=== PATIENT | male | born 1985 | race Caucasian/White ===

== ENCOUNTER 2019-07-15 22:58 | Emergency (ER) | payer BC ==
[2019-07-15 23:04] VITALS: TEMP 98.3
[2019-07-16] MEDS ORDERED: SODIUM CHLORIDE 0.9% 500 ML 500 ML IV ONE (01:48)
[2019-07-16] MEDS ORDERED: ONDANSETRON 4 MG/2 ML VIAL IVP STA (01:48)
[2019-07-16] MEDS ORDERED: SODIUM CHLORIDE 0.9% 1,000 ML IV ONE (01:48)
--- NOTE | 2019-07-16 01:48 | ED ---
Nausea/Vomiting/Diarrhea HPI - General Chief complaint: Nausea/Vomiting/Diarrhea Stated complaint: Vomiting Time Seen by Provider: 07/16/19 01:48 Source: patient Mode of arrival: ambulatory Limitations: no limitations - History of Present Illness Initial comments: 33-year-old male presented for vomiting 2 days per patient states he has no other associated symptoms denies fevers abdominal pain diarrhea denies hematemesis chest pain shortness of breath. Patient denies melena hematochezia dysuria urgency frequency flank pain. Patient states he feels fine aside from the vomiting. Patient states he has missed work. Remaining views negative. - Related Data Previous Rx's Medication Instructions Recorded Ondansetron Odt [Zofran Odt] 4 mg PO Q8HR PRN 4 Days #12 tab 07/16/19 Allergies Allergy/AdvReac Type Severity Reaction Status Date / Time No Known Allergies Allergy Verified 07/15/19 23:04 Review of Systems ROS Statement: Those systems with pertinent positive or pertinent negative responses have been documented in the HPI. ROS Other: All systems not noted in ROS Statement are negative. Past Medical History Past Medical History: No Reported History History of Any Multi-Drug Resistant Organisms: None Reported Past Surgical History: No Surgical Hx Reported Past Psychological History: No Psychological Hx Reported Smoking Status: Current every day smoker Past Alcohol Use History: Occasional Past Drug Use History: None Reported General Exam - General Exam Comments Initial Comments: General: The patient is awake and alert, in no distress, and does not appear acutely ill. Eye: Pupils are equal, round and reactive to light, extra-ocular movements are intact. No nystagmus. There is normal conjunctiva bilaterally. No signs of icterus. Ears, nose, mouth and throat: There are moist mucous membranes and no oral lesions. Neck: The neck is supple, there is no tenderness or JVD. Cardiovascular: There is a regular rate and rhythm. No murmur, rub or gallop is appreciated. Respiratory: Lungs are clear to auscultation, respirations are non-labored, breath sounds are equal. No wheezes, stridor, rales, or rhonchi. Gastrointestinal: Soft, non-distended, non-tender abdomen without masses or organomegaly noted. There is no rebound or guarding present. No CVA tenderness. Bowel sounds are unremarkable. Musculoskeletal: Normal ROM, no tenderness. Strength 5/5. Sensation intact. Pulses equal bilaterally 2+. Neurological: A&O x 3. CN II-XII intact grossly, There are no obvious motor or sensory deficits. Coordination appears grossly intact. Speech is normal. Skin: Skin is warm and dry and no rashes or lesions are noted. Psychiatric: Cooperative, appropriate mood & affect, normal judgment. Limitations: no limitations Course Vital Signs 07/15/19 07/16/19 23:01 03:54 Temperature 98.3 F Pulse Rate 101 H 88 Respiratory 20 18 Rate Blood Pressure 171/104 159/102 O2 Sat by Pulse 95 98 Oximetry Medical Decision Making - Medical Decision Making Well-appearing 33-year-old male presenting for vomiting. Patient appears clinically hydrated on physical examination. Patient given IV fluid bolus. Laboratory studies stable. There is elevation of AST ALT. Patient does admit to alcohol use. Patient has no upper quadrant abdominal pain. No elevation of alk phos. Negative Rich sign. At this time patient states his symptoms are controlled Zofran he is requesting discharge. Discussed case with a provider at this time if the patient is stable for discharge with outpatient primary care follow-up. - Lab Data Result diagrams: 07/16/19 02:37 07/16/19 02:30 Lab Results 07/16/19 07/16/19 Range/Units 02:30 02:37 WBC 9.2 (3.8-10.6) k/uL RBC 4.97 (4.30-5.90) m/uL Hgb 16.4 (13.0-17.5) gm/dL Hct 49.3 (39.0-53.0) % MCV 99.1 (80.0-100.0) fL MCH 33.1 (25.0-35.0) pg MCHC 33.4 (31.0-37.0) g/dL RDW 12.8 (11.5-15.5) % Plt Count 190 (150-450) k/uL Neutrophils % 72 % Lymphocytes % 18 % Monocytes % 4 % Eosinophils % 2 % Basophils % 2 % Neutrophils # 6.6 (1.3-7.7) k/uL Lymphocytes # 1.7 (1.0-4.8) k/uL Monocytes # 0.4 (0-1.0) k/uL Eosinophils # 0.2 (0-0.7) k/uL Basophils # 0.1 (0-0.2) k/uL Sodium 137 (137-145) mmol/L Potassium 4.0 (3.5-5.1) mmol/L Chloride 96 L (98-107) mmol/L Carbon Dioxide 28 (22-30) mmol/L Anion Gap 13 mmol/L BUN 6 L (9-20) mg/dL Creatinine 0.83 (0.66-1.25) mg/dL Est GFR (CKD-EPI)AfAm >90 (>60 ml/min/1.73 sqM) Est GFR (CKD-EPI)NonAf >90 (>60 ml/min/1.73 sqM) Glucose 134 H (74-99) mg/dL Calcium 10.0 (8.4-10.2) mg/dL Total Bilirubin 0.9 (0.2-1.3) mg/dL AST 202 H (17-59) U/L ALT 223 H (21-72) U/L Alkaline Phosphatase 93 (38-126) U/L Total Protein 7.5 (6.3-8.2) g/dL Albumin 4.6 (3.5-5.0) g/dL Amylase 50 (30-110) U/L Lipase 264 (23-300) U/L Disposition Clinical Impression: Vomiting, Elevated liver enzymes Disposition: HOME SELF-CARE Condition: Good Instructions (If sedation given, give patient instructions): Acute Nausea and Vomiting (ED) Additional Instructions: Please use medication as discussed. Please follow-up with family doctor in the next 2 days for elevation of liver enzymes. Please return to emergency room if the symptoms increase or worsen or for any other concerns. Prescriptions: Ondansetron Odt [Zofran Odt] 4 mg PO Q8HR PRN 4 Days #12 tab PRN Reason: Nausea Is patient prescribed a controlled substance at d/c from ED?: No Referrals: None,Stated [Primary Care Provider] - 1-2 days Time of Disposition: 03:24
[2019-07-16 02:44] LABS: Basophils # (A) 0.1 k/uL (0-0.2); Basophils % (A) 2 %; Eosinophils # (A) 0.2 k/uL (0-0.7); Eosinophils % (A) 2 %; HCT 49.3 % (39.0-53.0); HGB 16.4 gm/dL (13.0-17.5); Lymphocytes # (A) 1.7 k/uL (1.0-4.8); Lymphocytes % (A) 18 %; MCH 33.1 pg (25.0-35.0); MCHC 33.4 g/dL (31.0-37.0); MCV 99.1 fL (80.0-100.0); Mean Platelet Volume 6.7; Monocytes # (A) 0.4 k/uL (0-1.0); Monocytes % (A) 4 %; Neutrophils # (A) 6.6 k/uL (1.3-7.7); Neutrophils % (A) 72 %; Platelet Count 190 k/uL (150-450); RBC 4.97 m/uL (4.30-5.90); RDW 12.8 % (11.5-15.5); WBC 9.2 k/uL (3.8-10.6)
[2019-07-16 03:00] LABS: ALT 223 U/L (21-72); AST 202 U/L (17-59); African American GFR (CKD) >90 (>60 ml/min/1.73 sqM); Albumin 4.6 g/dL (3.5-5.0); Alkaline Phosphatase 93 U/L (38-126); Amylase 50 U/L (30-110); Anion Gap 13 mmol/L; Blood Urea Nitrogen 6 mg/dL (9-20); Carbon Dioxide 28 mmol/L (22-30); Chloride 96 mmol/L (98-107); Glucose 134 mg/dL (74-99); Sodium 137 mmol/L (137-145); Total Bilirubin 0.9 mg/dL (0.2-1.3); Total Protein 7.5 g/dL (6.3-8.2)
[2019-07-16 03:56] VITALS: BP 159/102; PULSE 88; RESP 18
== END 2019-07-16 03:58 | disposition home or self-care (01) ==
LOC: EC 22:58
DX: R74.8 Abnormal levels of other serum enzymes (principal); R11.10 Vomiting, unspecified; Z72.89 Other problems related to lifestyle; F17.200 Nicotine dependence, unspecified, uncomplicated
CPT/HCPCS: 99284; 96374; 96361; 36415; 80053; 82150; 83690; 85025; J2405

== ENCOUNTER 2019-12-27 17:11 | Emergency (ER) | payer BC ==
--- NOTE | 2019-12-27 17:39 | ED ---
Abdominal Pain HPI - General Chief Complaint: Abdominal Pain Stated Complaint: Vomiting blood Time Seen by Provider: 12/27/19 17:28 Source: patient, RN notes reviewed, old records reviewed Mode of arrival: ambulatory Limitations: no limitations - History of Present Illness Initial Comments: This is a 4-year-old male DF for evaluation of abdominal pain with nausea vomiting vomiting blood. Patient is to be daily drinker he is drinking today having a little anxiety over the blood in his vomit no blood in the stool occasional abdominal pain currently abdominal pain-free no history of surgery denies any medical history otherwise cystic [place] for some depression and anxiety. Currently nauseous with no active vomiting. No recent fevers or travel history. MD Complaint: abdominal pain -: week(s) Location: diffuse, epigastric Radiation: epigastric Migration to: no migration Severity: moderate Severity scale (1-10): 4 Quality: aching Consistency: intermittent Improves With: nothing Worsens With: nothing Associated Symptoms: nausea - Related Data Previous Rx's Medication Instructions Recorded Ondansetron Odt [Zofran Odt] 4 mg PO Q8HR PRN 4 Days #12 tab 07/16/19 Allergies Allergy/AdvReac Type Severity Reaction Status Date / Time No Known Allergies Allergy Verified 12/27/19 17:22 Review of Systems ROS Statement: Those systems with pertinent positive or pertinent negative responses have been documented in the HPI. ROS Other: All systems not noted in ROS Statement are negative. Past Medical History Past Medical History: No Reported History History of Any Multi-Drug Resistant Organisms: None Reported Past Surgical History: No Surgical Hx Reported Past Psychological History: Depression Smoking Status: Current every day smoker Past Alcohol Use History: Occasional Past Drug Use History: None Reported General Exam Limitations: no limitations General appearance: alert, in no apparent distress Head exam: Present: atraumatic, normocephalic, normal inspection Eye exam: Present: normal appearance, PERRL, EOMI. Absent: scleral icterus, conjunctival injection, periorbital swelling ENT exam: Present: normal exam, mucous membranes moist Neck exam: Present: normal inspection. Absent: tenderness, meningismus, lymphadenopathy Respiratory exam: Present: normal lung sounds bilaterally. Absent: respiratory distress, wheezes, rales, rhonchi, stridor Cardiovascular Exam: Present: normal rhythm, tachycardia, normal heart sounds. Absent: systolic murmur, diastolic murmur, rubs, gallop, clicks GI/Abdominal exam: Present: soft, normal bowel sounds. Absent: distended, tenderness, guarding, rebound, rigid Extremities exam: Present: normal inspection, full ROM, normal capillary refill. Absent: tenderness, pedal edema, joint swelling, calf tenderness Back exam: Present: normal inspection Neurological exam: Present: alert, oriented X3, CN II-XII intact Psychiatric exam: Present: normal affect, normal mood Skin exam: Present: warm, dry, intact, normal color. Absent: rash Course Vital Signs 12/27/19 12/27/19 17:21 18:41 Temperature 98.5 F Pulse Rate 118 H 115 H Respiratory 20 18 Rate Blood Pressure 148/83 129/82 O2 Sat by Pulse 96 94 L Oximetry - Reevaluation(s) Reevaluation #1: 12/27/19 18:36 Medical records reviewed Reevaluation #2: 12/27/19 20:06 Patient has improved pain Reevaluation #3: 12/27/19 20:06 Patient given results and findings, okay for discharge Medical Decision Making - Medical Decision Making 34 male to the ER for evaluation patient is evaluation of abdominal pain with nausea vomiting fevers but is on. Daily alcohol. No other significant acute findings mild pancreatitis can be discharged home to increase fluid intake and alcohol withdrawal - Lab Data Result diagrams: 12/27/19 18:23 12/27/19 18:23 Lab Results 12/27/19 12/27/19 Range/Units 18:23 18:23 WBC 8.3 (3.8-10.6) k/uL RBC 5.20 (4.30-5.90) m/uL Hgb 17.6 H (13.0-17.5) gm/dL Hct 51.5 (39.0-53.0) % MCV 99.1 (80.0-100.0) fL MCH 33.8 (25.0-35.0) pg MCHC 34.2 (31.0-37.0) g/dL RDW 12.1 (11.5-15.5) % Plt Count 222 (150-450) k/uL Neutrophils % 62 % Lymphocytes % 27 % Monocytes % 5 % Eosinophils % 3 % Basophils % 1 % Neutrophils # 5.2 (1.3-7.7) k/uL Lymphocytes # 2.3 (1.0-4.8) k/uL Monocytes # 0.4 (0-1.0) k/uL Eosinophils # 0.3 (0-0.7) k/uL Basophils # 0.1 (0-0.2) k/uL Sodium 138 (137-145) mmol/L Potassium 4.2 (3.5-5.1) mmol/L Chloride 98 (98-107) mmol/L Carbon Dioxide 23 (22-30) mmol/L Anion Gap 17 mmol/L BUN 11 (9-20) mg/dL Creatinine 0.74 (0.66-1.25) mg/dL Est GFR (CKD-EPI)AfAm >90 (>60 ml/min/1.73 sqM) Est GFR (CKD-EPI)NonAf >90 (>60 ml/min/1.73 sqM) Glucose 196 H (74-99) mg/dL Calcium 10.1 (8.4-10.2) mg/dL Phosphorus 5.1 H (2.5-4.5) mg/dL Magnesium 2.1 (1.6-2.3) mg/dL Total Bilirubin 0.5 (0.2-1.3) mg/dL AST 104 H (17-59) U/L ALT 107 H (4-49) U/L Alkaline Phosphatase 83 (38-126) U/L Total Protein 8.0 (6.3-8.2) g/dL Albumin 4.9 (3.5-5.0) g/dL Amylase 63 (30-110) U/L Lipase 305 H (23-300) U/L Serum Alcohol 180 mg/dL - Radiology Data Radiology results: report reviewed (X-ray KUB is negative for significant acute disease), image reviewed Disposition Clinical Impression: Abdominal pain, Pancreatitis, Alcohol abuse, Nausea & vomiting Disposition: HOME SELF-CARE Condition: Good Instructions (If sedation given, give patient instructions): Abdominal Pain (ED) Is patient prescribed a controlled substance at d/c from ED?: No Referrals: None,Stated [Primary Care Provider] - 1-2 days
[2019-12-27] MEDS ORDERED: PANTOPRAZOLE 40 MG/10 ML VIAL IVP STA (18:05)
[2019-12-27] MEDS ORDERED: SODIUM CHLORIDE 0.9% 1,000 ML IV STA ×2 (18:05)
[2019-12-27] MEDS ORDERED: ONDANSETRON 4 MG/2 ML VIAL IVP STA (18:05)
--- NOTE | 2019-12-27 18:25 | XR ---
EXAMINATION TYPE: XR KUB DATE OF EXAM: 12/27/2019 Comparison: None Clinical History: 34-year-old male abdominal pain Findings: Subtle phleboliths within the right side of the pelvis. No dilated small bowel or differential air-fluid levels. No significant stool burden. No evidence for free intraperitoneal air. Lung bases are clear. Small amount of scattered colonic air. Impression: Nonspecific, nonobstructive bowel gas pattern. No free air.
[2019-12-27 18:40] LABS: Basophils # (A) 0.1 k/uL (0-0.2); Basophils % (A) 1 %; Eosinophils # (A) 0.3 k/uL (0-0.7); Eosinophils % (A) 3 %; HCT 51.5 % (39.0-53.0); HGB 17.6 gm/dL (13.0-17.5); Lymphocytes # (A) 2.3 k/uL (1.0-4.8); Lymphocytes % (A) 27 %; MCH 33.8 pg (25.0-35.0); MCHC 34.2 g/dL (31.0-37.0); MCV 99.1 fL (80.0-100.0); Mean Platelet Volume 7.4; Monocytes # (A) 0.4 k/uL (0-1.0); Monocytes % (A) 5 %; Neutrophils # (A) 5.2 k/uL (1.3-7.7); Neutrophils % (A) 62 %; Platelet Count 222 k/uL (150-450); RDW 12.1 % (11.5-15.5); WBC 8.3 k/uL (3.8-10.6)
[2019-12-27 18:51] LABS: ALT 107 U/L (4-49); AST 104 U/L (17-59); African American GFR (CKD) >90 (>60 ml/min/1.73 sqM); Albumin 4.9 g/dL (3.5-5.0); Alkaline Phosphatase 83 U/L (38-126); Amylase 63 U/L (30-110); Anion Gap 17 mmol/L; Blood Urea Nitrogen 11 mg/dL (9-20); Calcium 10.1 mg/dL (8.4-10.2); Carbon Dioxide 23 mmol/L (22-30); Chloride 98 mmol/L (98-107); Glucose 196 mg/dL (74-99); Magnesium 2.1 mg/dL (1.6-2.3); Non-African American GFR(CKD) >90 (>60 ml/min/1.73 sqM); Phosphorus 5.1 mg/dL (2.5-4.5); Potassium 4.2 mmol/L (3.5-5.1); Sodium 138 mmol/L (137-145); Total Bilirubin 0.5 mg/dL (0.2-1.3)
[2019-12-27 19:05] LABS: Alcohol 180 mg/dL
[2019-12-27 20:22] VITALS: BP 139/79; PULSE 95; RESP 19; TEMP 98.6
== END 2019-12-27 20:29 | disposition home or self-care (01) ==
LOC: EC 17:11
DX: K85.90 Acute pancreatitis without necrosis or infection, unspecified (principal); F10.10 Alcohol abuse, uncomplicated; F41.9 Anxiety disorder, unspecified; F17.200 Nicotine dependence, unspecified, uncomplicated
CPT/HCPCS: 36415; 80053; 82150; 83690; 83735; 84100; 85025; 80320; 74018; 99284; 96374; 96375; 96361 ×2; J2405; C9113

== ENCOUNTER 2021-02-06 16:02 | Inpatient (IN) | payer BC ==
[2021-02-06] MEDS ORDERED: SODIUM CHLORIDE 0.9% 1,000 ML IV STA (16:58)
[2021-02-06] MEDS ORDERED: FAMOTIDINE 20 MG/2 ML VIAL IV STA (16:58)
[2021-02-06] MEDS ORDERED: SODIUM CHLORIDE 0.9% 1,000 ML with MVI, ADULT NO.4 WITH VIT K 10 ML, THIAMINE 100 MG, F... IV ONE ×4 (16:58)
[2021-02-06] MEDS ORDERED: THIAMINE 100 MG/ML 2 ML VIAL IM STA (16:58)
[2021-02-06 17:22] LABS: Glucose,Whole Blood 286 mg/dL (75-99)
--- NOTE | 2021-02-06 17:55 | ED ---
General Adult HPI - General Chief complaint: Extremity Problem,Nontraumatic Stated complaint: loss of feeling in both feet Time Seen by Provider: 02/06/21 16:28 Source: patient Mode of arrival: ambulatory Limitations: no limitations - History of Present Illness Initial comments: 35-year-old male patient presents to the emergency department today reporting bilateral foot numbness and tingling has been going on for the last few weeks. Also reports increased depression and hopelessness. Denies suicidal ideation. States he does drink alcohol daily, at least 1.5 pints per day. States he isn't doing this for several years. States he has decreased appetite, eats roughly one meal every couple of days. States he is nauseated vomits frequently. State s he has had some bloody emesis yesterday. Denies any black or bloody stools. Denies any fever or chills. Denies any low back pain or back injury. States it feels like his feet are sleeping. Denies loss of bowel or bladder control. Denies saddle anesthesia. Denies any known medical conditions. States he does have a family history of diabetes. Patient denies any recent rash, fever, chills, cough, shortness of breath, chest pain, diarrhea, constipation, back pain, numbness, tingling, dizziness, weakness, hematuria, dysuria, urinary urgency, urinary frequency, headache, visual changes, or any other complaints. - Related Data Home Medications Medication Instructions Recorded Confirmed No Known Home Medications 02/06/21 02/06/21 Allergies Allergy/AdvReac Type Severity Reaction Status Date / Time No Known Allergies Allergy Verified 02/06/21 18:15 Review of Systems ROS Statement: Those systems with pertinent positive or pertinent negative responses have been documented in the HPI. ROS Other: All systems not noted in ROS Statement are negative. Past Medical History Past Medical History: No Reported History History of Any Multi-Drug Resistant Organisms: None Reported Past Surgical History: No Surgical Hx Reported Past Psychological History: Depression Smoking Status: Current every day smoker Past Alcohol Use History: Daily Past Drug Use History: None Reported General Exam Limitations: no limitations General appearance: alert, in no apparent distress, other (Physical well-developed, well-nourished adult male patient in no acute distress. Vital signs upon presentation are temperature 98.1F, pulse 122, respirations 20, blood pressure 159/89, pulse ox 97% on room air.) Eye exam: Present: normal appearance, PERRL, EOMI. Absent: scleral icterus, conjunctival injection, periorbital swelling ENT exam: Present: normal exam, normal oropharynx, mucous membranes moist Respiratory exam: Present: normal lung sounds bilaterally. Absent: respiratory distress, wheezes, rales, rhonchi, stridor Cardiovascular Exam: Present: regular rate, normal rhythm, normal heart sounds. Absent: systolic murmur, diastolic murmur, rubs, gallop, clicks GI/Abdominal exam: Present: soft, normal bowel sounds. Absent: distended, tenderness, guarding, rebound, rigid Neurological exam: Present: alert, oriented X3, CN II-XII intact Psychiatric exam: Present: normal affect, normal mood Skin exam: Present: warm, dry, intact, normal color. Absent: rash Course Vital Signs 02/06/21 02/06/21 02/06/21 16:04 18:33 21:10 Temperature 98.1 F 98.0 F 98.6 F Pulse Rate 122 H 95 Pulse Rate [ 95 Pulse Oximetery ] Respiratory 20 18 18 Rate Blood Pressure 159/89 130/90 Blood Pressure 149/85 [Left Arm] O2 Sat by Pulse 97 99 94 L Oximetry Medical Decision Making - Medical Decision Making 35-year-old male patient presents to the emergency department today for eval uation of. Seizure to the bilateral feet, decreased appetite, depression. Physical examination was unremarkable. Abdomen soft and nontender. He is afebrile normal vital signs. Labs reviewed and did reveal elevated blood sugar. Patient did admit to being chronic alcoholic, paresthesia could be related to vitamin deficiency. He'll be given a banana bag, thiamine, and vitamin B12. We did give dose of insulin. He'll be started on NovoLog. He'll be admitted to the hospital for management of new onset diabetes and further evaluation by psychiatry. Case discussed with my attending Dr. Isbell. - Lab Data Result diagrams: 02/06/21 17:12 02/06/21 17:12 Lab Results 02/06/21 02/06/21 02/06/21 Range/Units 17:12 17:12 17:12 WBC 8.7 (3.8-10.6) k/uL RBC 5.40 (4.30-5.90) m/uL Hgb 18.7 H (13.0-17.5) gm/dL Hct 52.6 (39.0-53.0) % MCV 97.4 (80.0-100.0) fL MCH 34.7 (25.0-35.0) pg MCHC 35.6 (31.0-37.0) g/dL RDW 11.9 (11.5-15.5) % Plt Count 193 (150-450) k/uL MPV 7.9 Neutrophils % 58 % Lymphocytes % 32 % Monocytes % 5 % Eosinophils % 2 % Basophils % 1 % Neutrophils # 5.1 (1.3-7.7) k/uL Lymphocytes # 2.8 (1.0-4.8) k/uL Monocytes # 0.5 (0-1.0) k/uL Eosinophils # 0.2 (0-0.7) k/uL Basophils # 0.1 (0-0.2) k/uL Sodium 140 (137-145) mmol/L Potassium 4.7 (3.5-5.1) mmol/L Chloride 97 L (98-107) mmol/L Carbon Dioxide 22 (22-30) mmol/L Anion Gap 21 mmol/L BUN 4 L (9-20) mg/dL Creatinine 0.73 (0.66-1.25) mg/dL Est GFR (CKD-EPI)AfAm >90 (>60 ml/min/1.73 sqM) Est GFR (CKD-EPI)NonAf >90 (>60 ml/min/1.73 sqM) Glucose 301 H (74-99) mg/dL POC Glucose (mg/dL) (75-99) mg/dL POC Glu [employer] Inspector ID Calcium 10.1 (8.4-10.2) mg/dL Phosphorus 5.0 H (2.5-4.5) mg/dL Magnesium 1.9 (1.6-2.3) mg/dL Total Bilirubin 0.9 (0.2-1.3) mg/dL AST 229 H (17-59) U/L ALT 174 H (4-49) U/L Alkaline Phosphatase 90 (38-126) U/L Total Protein 8.2 (6.3-8.2) g/dL Albumin 5.2 H (3.5-5.0) g/dL Lipase 266 (23-300) U/L Urine Color Yellow Urine Appearance Clear (Clear) Urine pH 5.5 (5.0-8.0) Ur Specific [place] 1.020 (1.001-1.035) Urine Protein Trace H (Negative) Urine Glucose (UA) 4+ H (Negative) Urine Ketones 1+ H (Negative) Urine Blood Negative (Negative) Urine Nitrite Negative (Negative) Urine Bilirubin Negative (Negative) Urine Urobilinogen <2.0 (<2.0) mg/dL Ur Leukocyte Esterase Negative (Negative) Urine Opiates Screen Not Detected (NotDetected) Ur Oxycodone Screen Not Detected (NotDetected) Urine Methadone Screen Not Detected (NotDetected) Ur Propoxyphene Screen Not Detected (NotDetected) Ur Barbiturates Screen Not Detected (NotDetected) U Tricyclic Antidepress Not Detected (NotDetected) Ur Phencyclidine Scrn Not Detected (NotDetected) Ur Amphetamines Screen Not Detected (NotDetected) U Methamphetamines Scrn Not Detected (NotDetected) U Benzodiazepines Scrn Not Detected (NotDetected) Urine Cocaine Screen Not Detected (NotDetected) U Marijuana (THC) Screen Not Detected (NotDetected) Serum Alcohol 236 H* mg/dL Acetone, Qual (Negative) Coronavirus (PCR) (Not Detectd) 02/06/21 02/06/21 02/06/21 Range/Units 17:12 17:17 19:54 WBC (3.8-10.6) k/uL RBC (4.30-5.90) m/uL Hgb (13.0-17.5) gm/dL Hct (39.0-53.0) % MCV (80.0-100.0) fL MCH (25.0-35.0) pg MCHC (31.0-37.0) g/dL RDW (11.5-15.5) % Plt Count (150-450) k/uL MPV Neutrophils % % Lymphocytes % % Monocytes % % Eosinophils % % Basophils % % Neutrophils # (1.3-7.7) k/uL Lymphocytes # (1.0-4.8) k/uL Monocytes # (0-1.0) k/uL Eosinophils # (0-0.7) k/uL Basophils # (0-0.2) k/uL Sodium (137-145) mmol/L Potassium (3.5-5.1) mmol/L Chloride (98-107) mmol/L Carbon Dioxide (22-30) mmol/L Anion Gap mmol/L BUN (9-20) mg/dL Creatinine (0.66-1.25) mg/dL Est GFR (CKD-EPI)AfAm (>60 ml/min/1.73 sqM) Est GFR (CKD-EPI)NonAf (>60 ml/min/1.73 sqM) Glucose (74-99) mg/dL POC Glucose (mg/dL) 286 H (75-99) mg/dL POC Glu [employer] Inspector ID Dayana Garcia Calcium (8.4-10.2) mg/dL Phosphorus (2.5-4.5) mg/dL Magnesium (1.6-2.3) mg/dL Total Bilirubin (0.2-1.3) mg/dL AST (17-59) U/L ALT (4-49) U/L Alkaline Phosphatase (38-126) U/L Total Protein (6.3-8.2) g/dL Albumin (3.5-5.0) g/dL Lipase (23-300) U/L Urine Color Urine Appearance (Clear) Urine pH (5.0-8.0) Ur Specific [place] (1.001-1.035) Urine Protein (Negative) Urine Glucose (UA) (Negative) Urine Ketones (Negative) Urine Blood (Negative) Urine Nitrite (Negative) Urine Bilirubin (Negative) Urine Urobilinogen (<2.0) mg/dL Ur Leukocyte Esterase (Negative) Urine Opiates Screen (NotDetected) Ur Oxycodone Screen (NotDetected) Urine Methadone Screen (NotDetected) Ur Propoxyphene Screen (NotDetected) Ur Barbiturates Screen (NotDetected) U Tricyclic Antidepress (NotDetected) Ur Phencyclidine Scrn (NotDetected) Ur Amphetamines Screen (NotDetected) U Methamphetamines Scrn (NotDetected) U Benzodiazepines Scrn (NotDetected) Urine Cocaine Screen (NotDetected) U Marijuana (THC) Screen (NotDetected) Serum Alcohol mg/dL Acetone, Qual Negative (Negative) Coronavirus (PCR) Not Detected (Not Detectd) Disposition Clinical Impression: Paresthesia, Alcohol intoxication, New onset type 2 diabetes mellitus, Depression Disposition: ADMITTED IP TO THIS [facility] Condition: Serious Decision to Admit Reason: Admit from EC Decision Date: 02/06/21 Decision Time: 19:08
[2021-02-06 18:04] LABS: Appearance,Urine Clear (Clear); Bilirubin,Urine Negative (Negative); Blood,Urine Negative (Negative); Color,Urine Yellow; Glucose,Urine (UA) 4+ (Negative); Ketones,Urine 1+ (Negative); Leukocyte Esterase,Urine Negative (Negative); Nitrite,Urine Negative (Negative); PH, Urine 5.5 (5.0-8.0); Protein,Urine Trace (Negative); Urobilinogen,Urine <2.0 mg/dL (<2.0)
[2021-02-06 18:07] LABS: Basophils # (A) 0.1 k/uL (0-0.2); Basophils % (A) 1 %; Eosinophils # (A) 0.2 k/uL (0-0.7); Eosinophils % (A) 2 %; HCT 52.6 % (39.0-53.0); HGB 18.7 gm/dL (13.0-17.5); Lymphocytes # (A) 2.8 k/uL (1.0-4.8); Lymphocytes % (A) 32 %; MCH 34.7 pg (25.0-35.0); MCHC 35.6 g/dL (31.0-37.0); MCV 97.4 fL (80.0-100.0); Mean Platelet Volume 7.9; Monocytes # (A) 0.5 k/uL (0-1.0); Monocytes % (A) 5 %; Neutrophils # (A) 5.1 k/uL (1.3-7.7); Neutrophils % (A) 58 %; Platelet Count 193 k/uL (150-450); RDW 11.9 % (11.5-15.5); WBC 8.7 k/uL (3.8-10.6)
[2021-02-06 18:12] LABS: ALT 174 U/L (4-49); AST 229 U/L (17-59); African American GFR (CKD) >90 (>60 ml/min/1.73 sqM); Albumin 5.2 g/dL (3.5-5.0); Alkaline Phosphatase 90 U/L (38-126); Anion Gap 21 mmol/L; Blood Urea Nitrogen 4 mg/dL (9-20); Calcium 10.1 mg/dL (8.4-10.2); Carbon Dioxide 22 mmol/L (22-30); Chloride 97 mmol/L (98-107); Glucose 301 mg/dL (74-99); Lipase 266 U/L (23-300); Magnesium 1.9 mg/dL (1.6-2.3); Non-African American GFR(CKD) >90 (>60 ml/min/1.73 sqM); Potassium 4.7 mmol/L (3.5-5.1); Sodium 140 mmol/L (137-145); Total Bilirubin 0.9 mg/dL (0.2-1.3); Total Protein 8.2 g/dL (6.3-8.2)
[2021-02-06 18:13] LABS: Amphetamine Screen,Urine Not Detected (NotDetected); Barbiturate Screen,Urine Not Detected (NotDetected); Benzodiazepines Screen,Urine Not Detected (NotDetected); Cocaine Screen,Urine Not Detected (NotDetected); Methadone Screen, Urine Not Detected (NotDetected); Opiate Screen,Urine Not Detected (NotDetected); Oxycodone Screen, Urine Not Detected (NotDetected); Phencyclidine Screen,Urine Not Detected (NotDetected); Tricyclic Antidepressant,Urine Not Detected (NotDetected); Urn Cannabinoid Scrn Not Detected (NotDetected)
[2021-02-06 18:32] LABS: Alcohol 236 mg/dL
[2021-02-06] MEDS ORDERED: CYANOCOBALAMIN 1,000 MCG/ML 1 ML VIAL IM ONE (18:58)
[2021-02-06] MEDS ORDERED: NALOXONE 0.4 MG/ML 1 ML VIAL IV PRN (18:59)
[2021-02-06] MEDS ORDERED: LORazepam 2 MG/ML INJ IV PRN ×3 (19:06)
[2021-02-06] MEDS: THIAMINE 100 MG TAB PO SCH (19:10)
[2021-02-06 21:30] LABS: Glucose,Whole Blood 270 mg/dL (75-99)
[2021-02-06] MEDS: INSULIN ASPART (NovoLOG) 100 UNIT/ML VIAL SQ SCH (21:37)
--- NOTE | 2021-02-07 01:30 | P.HPIM ---
History of Present Illness H&P Date: 02/06/21 Chief Complaint: Numbness in his toes 35-year-old malesignificant past medical history Patient comes in with a month's history of not feeling well, having numbness in his toes. Patient also complains of overwhelming depression denies any suicidal ideation but admits to feeling hopeless and helpless having poor sleep and poor appetite. He denies any active suicidal ideation at this time but admits that he felt suicidal in the past without having a plan. 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 He does admit to couple episodes of dark bloody emesis denies a ny epigastric pain denies any current coffee-ground vomiting however he claims that his most recent bloody emesis was yesterday In the ED he was found to have elevated blood sugar newly diagnosed diabetes mellitus he admits that his last drink was earlier this morning however he is asking for help to quit drinking and improve his health He denies any drug abuse however he admits to smoking cigarettes. He denies any fevers chills as any abdominal pain denies any bowel or urinary habits changes Review of Systems Pertinent positives as noted in HPI. All other systems were reviewed and are negative Past Medical History Past Medical History: No Reported History Additional Past Medical History / Comment(s): Depressed mood, alcohol abuse History of Any Multi-Drug Resistant Organisms: None Reported Past Surgical History: No Surgical Hx Reported Past Psychological History: Depression Smoking Status: Current every day smoker Past Alcohol Use History: Daily Past Drug Use History: None Reported - Past Family History Family Family Medical History: No Reported History Medications and Allergies Home Medications Medication Instructions Recorded Confirmed Type No Known Home Medications 02/06/21 02/06/21 History Allergies Allergy/AdvReac Type Severity Reaction Status Date / Time No Known Allergies Allergy Verified 02/06/21 18:15 Physical Exam Vitals: Vital Signs Temp Pulse Pulse Resp BP BP Pulse Ox 02/06/21 21:10 98.6 F 95 18 149/85 94 L 02/06/21 18:33 98.0 F 95 18 130/90 99 02/06/21 16:04 98.1 F 122 H 20 159/89 97 Intake and Output 05/15/21 05/15/21 05/15/21 06:59 14:59 22:59 Other: Voiding Method Toilet # Voids 1 Weight 90.718 kg Constitutional: No acute distress, conversant, pleasant Eyes: Anicteric sclerae, moist conjunctiva, Pupils equal round reactive to light ENMT: NC/AT Oropharynx clear, no erythema, or exudates Neck: Supple, FROM, no masses, or JVD No carotid bruits No thyromegaly Lungs: Clear to auscultation Clear to percussion Normal respiratory effort, no accessory muscle use Cardiovascular: Heart regular in rate and rhythm, No murmurs, gallops, or rubs No peripheral edema Abdominal: Soft Nontender, no guarding, rebound or rigidity Abdomen moving with respiration Normoactive bowel sounds No hepatomegaly, No splenomegaly No palpable mass No abdominal wall hernia noted Skin: Normal temperature, tone, texture, turgor No induration No subcutaneous nodules No rash, lesions No ulcers Extremities: No digital cyanosis No clubbing Pedal pulses intact and symmetrical Radial pulses intact and symmetrical No calf tenderness Psychiatric: Alert and oriented to person, place and time Appropriate affect fair judgement Neuro Muscles Strength 5/5 in all 4 extremities Sensation to light touch grossly present throughout Cranial nerves II-XII grossly intact No focal sensory deficits Lymphatics: no palpable cervical or supraclavicular , or inguinal lymph nodes Results CBC & Chem 7: 02/06/21 17:12 02/06/21 17:12 Labs: Abnormal Lab Results - Last 24 Hours (Table) 02/06/21 02/06/21 02/06/21 Range/Units 17:12 17:12 17:12 Hgb 18.7 H (13.0-17.5) gm/dL Chloride 97 L (98-107) mmol/L BUN 4 L (9-20) mg/dL Glucose 301 H (74-99) mg/dL POC Glucose (mg/dL) (75-99) mg/dL Phosphorus 5.0 H (2.5-4.5) mg/dL AST 229 H (17-59) U/L ALT 174 H (4-49) U/L Albumin 5.2 H (3.5-5.0) g/dL Urine Protein Trace H (Negative) Urine Glucose (UA) 4+ H (Negative) Urine Ketones 1+ H (Negative) Serum Alcohol 236 H* mg/dL 02/06/21 02/06/21 Range/Units 17:17 21:26 Hgb (13.0-17.5) gm/dL Chloride (98-107) mmol/L BUN (9-20) mg/dL Glucose (74-99) mg/dL POC Glucose (mg/dL) 286 H 270 H (75-99) mg/dL Phosphorus (2.5-4.5) mg/dL AST (17-59) U/L ALT (4-49) U/L Albumin (3.5-5.0) g/dL Urine Protein (Negative) Urine Glucose (UA) (Negative) Urine Ketones (Negative) Serum Alcohol mg/dL Assessment and Plan Assessment: Newly diagnosed diabetes mellitus Peripheral neuropathy Alcohol abuse Depressed mood no active suicidal ideation at this time Tobacco smoking Acute alcoholic hepatitis Plan Monitor for alcohol withdrawal syndrome Seizure precautions Thiamine IV fluid hydration Benzodiazepines per CIWA scale PPI Consider GI evaluation for possible bloody emesis Psych evaluation for depressed mood and occasional suicidal ideation no active suicidal ideation at this time Nicotine replacement therapy offered Diabetic education Check A1c Follow-up labs renal function and electrolytes and CBC CODE STATUS: Full code DVT prophylaxis: Mechanical Discussed with: Patient, ER, RN Anticipated length of stay more than [address]: [facility] [place] [facility] A total of 70 minutes was spent on the care of this complex patient more than 50% of the time was spent in counseling and care coordination.
[2021-02-07] MEDS: PANTOPRAZOLE 40 MG TABLET PO SCH ×3 (01:45→16:42)
[2021-02-07 07:14] LABS: Glucose,Whole Blood 240 mg/dL (75-99)
[2021-02-07] MEDS: INSULIN ASPART (NovoLOG) 100 UNIT/ML VIAL SQ SCH ×4 (07:30→21:19)
[2021-02-07] MEDS: THIAMINE 100 MG TAB PO SCH ×2 (07:30→16:43)
[2021-02-07 08:10] VITALS: RESP 16
[2021-02-07 09:59] LABS: Basophils # (A) 0.06 X 10*3/uL (0.00-0.10); Basophils % (A) 0.7 %; Eosinophils # (A) 0.22 X 10*3/uL (0.04-0.35); Eosinophils % (A) 2.5 %; HCT 47.5 % (39.6-50.0); HGB 16.2 g/dL (13.0-17.0); Lymphocytes # (A) 2.34 X 10*3/uL (0.90-5.00); Lymphocytes % (A) 26.7 %; MCH 33.4 pg (27.0-32.0); MCHC 34.1 g/dL (32.0-37.0); MCV 97.9 fL (80.0-97.0); Mean Platelet Volume 10.9 fL (9.5-12.2); Monocytes # (A) 0.59 X 10*3/uL (0.20-1.00); Monocytes % (A) 6.7 %; Neutrophils % (A) 62.9 %; Platelet Count 171 X 10*3/uL (140-440); RBC 4.85 X 10*6/uL (4.40-5.60); RDW 11.7 % (11.5-14.5); WBC 8.75 X 10*3/uL (4.50-10.00)
[2021-02-07 10:37] LABS: Albumin/Globulin Ratio 2.11 (1.60-3.17); Anion Gap 10.7 mmol/L (4.00-12.00); Calcium 8.9 mg/dL (8.7-10.3); Carbon Dioxide 27.3 mmol/L (21.6-31.8); Globulin 1.9 g/dL (1.6-3.3); Non-African American GFR(CKD) 117.4 (60.0-200.0); Potassium 4.2 mmol/L (3.5-5.5); Total Bilirubin 0.9 mg/dL (0.2-1.2); Total Protein 5.9 g/dL (6.2-8.2)
--- NOTE | 2021-02-07 11:58 | P.CN ---
Psychiatric Consult - . Consult date: 02/07/21 Consult:: 02/07/21 11:41 Reason for consult: This 35-year-old white male patient was seen on medical floor in his room 624 because he was feeling overwhelmed and depressed. He was a newly diagnosed with the diabetes type 2. History of present illness: This patient stated that he drinks alcohol heavily every day for last many months. He was experiencing numbness in his feet and was vomiting and was feeling depressed. He stated he has panic attack where he feels dizzy, lightheaded, feels like passing out, has shortness of breath, feels anxious, feels like he is going to be doomed and and that has been going for quite a few years now. He stated he feels depressed. He denies any suicidal thoughts. He stated he has struggled with depression for a long time ever since he was a small child. He stated he does not sleep and feels tired most of the time. He stated he keeps waking up every couple of hours. Past history: He was never in a psychiatric hospital . He was seen one time had the age of 15 by a mental health professional for depression. At that time he was prescribed Zoloft but he lost appetite with that medication and stopped taking it. Family history: He stated his mother, brother and a few other people in the [facility] have a history of depression. He denied any history of suicide in the family. He stated his uncle and his grandfather has history of heavy alcoholism. He stated his brother has problems with drugs. Medical history he stated he has been diagnosed with diabetes type 2 very recently. Social history: He stated he grew up with his mother and stepfather. He stated he did not graduate from high school. He stated he works for a [employer] that makes [employer] and has been working there for last 2 years. Medication history: He denied being on any medications. Substance abuse history: He has been drinking heavily every day for last 10 years. He denied use of marijuana or any other drugs. History of suicide or homicide: He denied attempting suicide and denied assaulting anybody else ever in the past. History of psychological trauma : He denied history of emotional, physical or sexual abuse ever in the past. Legal history: He stated he has been arrested a few times in the past. He stated he has been arrested for driving while intoxicated. He stated that before he was 20 years old he was charged with armed robbery and home invasion but that record has been erased from his records. ALLERGIES: He denies being ALLERGIC to anything. Mental status examination: This patient appears to be off his stated age and his mood and affect is depressed. He is alert and oriented to time place and person. He has adequate speech language and communication skills. He speaks in a low monotonous voice. He denied any auditory visual or any other type of hallucinations. He does not have any loose associations of flight of ideas or any disorder of thought process. His judgment is impulsive and impulse control is poor. His memory and other cognitive functions are intact. Diagnostic impression: Generalized anxiety disorder Depressive disorder not otherwise specified Alcohol dependence Diabetes type 2 Treatment recommendations: I will start him on Prozac and the trazodone for sl eep. This patient needs help from the renal social worker to go to community mental health because he has no awareness of any resources in the community to help him out.
[2021-02-07 12:10] LABS: Glucose,Whole Blood 242 mg/dL (75-99)
--- NOTE | 2021-02-07 12:41 | P.CONS ---
History of Present Illness - Reason for Consult Consult date: 02/07/21 Coffee-ground emesis Requesting physician: Villa Rees - Chief Complaint Alcohol intoxication - History of Present Illness 35-year-old male with a medical history significant for alcohol abuse and depression who presents to the hospital due to alcohol intoxication and not feeling well. Currently the patient is being monitored and treated for alcohol withdrawal. He is been seen by the psychiatric service for evaluation of anxiety, depression and alcohol abuse. He reports alcohol abuse for over 10 years with significant daily alcohol consumption. GI was consulted to see the patient regarding intermittent episodes of emesis and dark emesis. He reports that he'll frequently have emesis and intermittently see dark colored vomitus. He denies any gross bleeding. He denies any change in bowel habits generally 2 times daily with no blood or black tarry stool reported. No prior EGD or colonoscopy reported. No abdominal pain reported. Laboratory evaluation significant for WBC 8.7, hemoglobin 16.2, platelet count 171,000, total bilirubin 0.9, alkaline phosphatase 79, AST 125 and ALT 134 with a serum alcohol level of 236 on presentation. The last episode of dark colored emesis was approximately 2 weeks ago per his recollection, and currently he reports tolerating his diet with no nausea or vomiting. Review of Systems REVIEW OF SYSTEMS: CONSTITUTIONAL: Denies any fevers, chills, weight change or fatigue. CARDIOVASCULAR: Denies any chest pain, palpitations high or low blood pressures RESPIRATORY: Denies any shortness of breath, hemoptysis or cough. GENITOURINARY: No dysuria or hematuria. MUSCULOSKELETAL: No weakness reported. SKIN: Denies any new rashes or lesions, jaundice or pallor. PSYCHIATRIC: Anxiety, depression and alcohol abuse, denies any suicidal or homicidal ideations. NEUROLOGY: Denies headache, denies any new focal deficits. EARS/NOSE/THROAT: No recent hearing change, congestion, nasal discharge or sore throat. EYES: No pain in eyes, discharge or change in vision. GASTROINTESTINAL: As per HPI. Past Medical History Past Medical History: No Reported History Additional Past Medical History / Comment(s): Depressed mood, alcohol abuse History of Any Multi-Drug Resistant Organisms: None Reported Past Surgical History: No Surgical Hx Reported Past Psychological History: Depression Smoking Status: Current every day smoker Past Alcohol Use History: Daily Past Drug Use History: None Reported - Past Family History Family Family Medical History: No Reported History Medications and Allergies Home Medications Medication Instructions Recorded Confirmed Type No Known Home Medications 02/06/21 02/06/21 History Allergies Allergy/AdvReac Type Severity Reaction Status Date / Time No Known Allergies Allergy Verified 02/06/21 18:15 Physical Exam Vitals: Vital Signs Temp Pulse Pulse Resp BP BP Pulse Ox 02/07/21 07:05 98.1 F 72 16 149/90 96 02/07/21 01:34 98.6 F 88 20 142/83 97 02/06/21 21:10 98.6 F 95 18 149/85 94 L 02/06/21 18:33 98.0 F 95 18 130/90 99 02/06/21 16:04 98.1 F 122 H 20 159/89 97 Intake and Output 02/06/21 02/07/21 02/07/21 22:59 06:59 14:59 Other: Voiding Method Toilet Toilet Toilet # Voids 1 1 Weight 90.718 kg On physical examination, patient appears comfortable in no apparent distress. HEAD: Normocephalic, atraumatic. EYES: No scleral icterus. No conjunctival injection. MOUTH: No lesions, tongue midline. NECK: Trachea midline, no gross abnormalities. CHEST: Clear to auscultation with no wheezing or rhonchi appreciated. HEART: Regular rate and rhythm. ABDOMEN: Soft, nontender to palpation. Bowel sounds are positive. No organomegaly. No guarding or rigidity. EXTREMITIES: No pedal edema. SKIN: No rashes, no jaundice. NEUROLOGIC: Alert and oriented x3, tremulousness but no asterixis noted. No focal deficits. Results CBC & Chem 7: 02/07/21 04:14 02/07/21 04:14 Labs: Abnormal Lab Results - Last 24 Hours (Table) 02/06/21 02/06/21 02/06/21 Range/Units 17:12 17:12 17:12 Hgb 18.7 H (13.0-17.5) gm/dL MCV (80.0-97.0) fL MCH (27.0-32.0) pg Chloride 97 L (98-107) mmol/L BUN 4 L (9-20) mg/dL BUN/Creatinine Ratio (12.00-20.00) Ratio Glucose 301 H (74-99) mg/dL POC Glucose (mg/dL) (75-99) mg/dL Phosphorus 5.0 H (2.5-4.5) mg/dL AST 229 H (17-59) U/L ALT 174 H (4-49) U/L Total Protein (6.2-8.2) g/dL Albumin 5.2 H (3.5-5.0) g/dL Urine Protein Trace H (Negative) Urine Glucose (UA) 4+ H (Negative) Urine Ketones 1+ H (Negative) Serum Alcohol 236 H* mg/dL 02/06/21 02/06/21 02/07/21 Range/Units 17:17 21:26 04:14 Hgb (13.0-17.5) gm/dL MCV 97.9 H (80.0-97.0) fL MCH 33.4 H (27.0-32.0) pg Chloride (98-107) mmol/L BUN (9-20) mg/dL BUN/Creatinine Ratio (12.00-20.00) Ratio Glucose (74-99) mg/dL POC Glucose (mg/dL) 286 H 270 H (75-99) mg/dL Phosphorus (2.5-4.5) mg/dL AST (17-59) U/L ALT (4-49) U/L Total Protein (6.2-8.2) g/dL Albumin (3.5-5.0) g/dL Urine Protein (Negative) Urine Glucose (UA) (Negative) Urine Ketones (Negative) Serum Alcohol mg/dL 02/07/21 02/07/21 02/07/21 Range/Units 04:14 07:04 12:09 Hgb (13.0-17.5) gm/dL MCV (80.0-97.0) fL MCH (27.0-32.0) pg Chloride (98-107) mmol/L BUN 8.0 L (9-20) mg/dL BUN/Creatinine Ratio 10.00 L (12.00-20.00) Ratio Glucose 236 H (74-99) mg/dL POC Glucose (mg/dL) 240 H 242 H (75-99) mg/dL Phosphorus (2.5-4.5) mg/dL AST 125 H (17-59) U/L ALT 134 H (4-49) U/L Total Protein 5.9 L (6.2-8.2) g/dL Albumin (3.5-5.0) g/dL Urine Protein (Negative) Urine Glucose (UA) (Negative) Urine Ketones (Negative) Serum Alcohol mg/dL Assessment and Plan (1) Nausea and vomiting Narrative/Plan: 35-year-old male with multiple medical comorbidities including alcohol abuse, anxiety and depression presenting for not feeling well and alcohol intoxication. Patient reports intermittent episodes of nausea and vomiting and occasionally seen dark colored emesis. Last episode approximately 2 weeks ago. Hemoglobin stable on presentation at 16.2. No abdominal pain reported. No prior endoscopies reported. No change in bowel habits, melanotic stool or bright red blood per rectum. Current Visit: Yes Status: Acute Code(s): R11.2 - NAUSEA WITH VOMITING, UNSPECIFIED SNOMED Code(s): 29706671 (2) Alcohol intoxication Current Visit: Yes Status: Acute Code(s): F10.929 - ALCOHOL USE, UNSPECIFIED WITH INTOXICATION, UNSPECIFIED SNOMED Code(s): 85520914 Plan: Supportive care Okay for diet as tolerated Continue to monitor hemoglobin and hematocrit and transfuse as needed Continue Protonix therapy Avoid NSAID use Continue to monitor for signs or symptoms of alcohol withdrawal and treat Psychiatry service consulted to see the patient No plans for endoscopic evaluation at this time, if any episodes of dark colored emesis or precipitous fall in hemoglobin while the patient is hospitalized we'll reevaluate at that time Thank you for allowing us to participate in the care of the patient, the GI service will stand by, please call us back at any questions or concerns
[2021-02-07] MEDS: chlordiazePOXIDE 25 MG CAP PO SCH ×3 (12:54→21:11)
[2021-02-07 17:07] LABS: Glucose,Whole Blood 222 mg/dL (75-99)
--- NOTE | 2021-02-07 18:43 | P.PN ---
Subjective Progress Note Date: 02/07/21 (delayed charting seen at 1245) Principal diagnosis: numbness in leg/feet and depression Patient is a 35-year-old male with a significant history of alcoholism, depression, and tobacco abuse who presented secondary to depression and alcohol addiction as well as numbness in his toes. In the ER he underwent an extensive evaluation. He was found to have new onset diabetes with blood sugars greater than 200. He was subsequently admitted for further monitoring. He was started on sliding scale insulin, A1c was ordered, and he was also started on CIWA protocol. 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 He was also seen by GI who did not plan for scope at this time as hemoglobin has been stable. Patient seen and examined at bedside. He is hoping to detox and alcohol and then get community support services, he does not feel suicidal at this point in time. He states both his mother and his stepfather had diabetes and he is familiar with checking blood sugars. We discussed that we will need to await his A1c results to see if he can be on oral or medical medications. He denies any tremors, nausea, headache, hallucinations, or paresthesias. We discussed monitoring the 3 signs of alcohol withdrawal. He has been drinking 1.5 pints daily for the last 2 years, has been quite some time since he is going days without drinking. General: non toxic, no distress, appears at stated age Derm: warm, dry Head: atraumatic, normocephalic, symmetric Eyes: EOMI, no lid lag, anicteric sclera Mouth: no lip lesion, mucus membranes moist Cardiovascular: S1S2 reg, no murmur, positive posterior tibial pulse bilateral, Lungs: CTA bilateral, no rhonchi, no rales , no accessory muscle use Abdominal: soft, nontender to palpation, no guarding, no appreciable organomegaly Ext: no gross muscle atrophy, no edema, no contractures Neuro: CN II-XI grossly intact, no focal neuro deficits Psych: Alert, oriented, appropriate affect Alcohol abuse with impending withdrawal -Start scheduled Librium -CIWA protocol -Thiamine and folic acid Newly discovered diabetes mellitus -Await hemoglobin A1c -Sliding-scale insulin -outreach educator to see patient -Would try to avoid insulin until patient's depression is better controlled. Tobacco abuse -Cessation -Nicotine replacement DVT prophylaxis: SCDs Discussed with: patient, nursing Anticipated discharge: 2-[address]: home vs rehab A total of 45 minutes was spent on the care of this complex patient more than 50% of the time was spent in counseling and care coordination. Objective - Vital Signs Vital signs: Vital Signs Temp 98.6 F 02/07/21 13:40 Pulse 75 02/07/21 13:40 Resp 16 02/07/21 13:40 BP 165/100 02/07/21 13:40 Pulse Ox 97 02/07/21 13:40 Intake & Output 02/06/21 02/07/21 02/07/21 18:59 06:59 18:59 Weight 90.718 kg 90.718 kg Other: Voiding Method Toilet Toilet # Voids 1 3 - Labs CBC & Chem 7: 02/07/21 04:14 02/07/21 04:14 Labs: Abnormal Lab Results - Last 24 Hours (Table) 02/06/21 02/07/21 02/07/21 Range/Units 21:26 04:14 04:14 MCV 97.9 H (80.0-97.0) fL MCH 33.4 H (27.0-32.0) pg BUN 8.0 L (9.0-27.0) mg/dL BUN/Creatinine Ratio 10.00 L (12.00-20.00) Ratio Glucose 236 H (70-110) mg/dL POC Glucose (mg/dL) 270 H (75-99) mg/dL Hemoglobin A1c (4.0-6.0) % AST 125 H (14-35) U/L ALT 134 H (10-49) U/L Total Protein 5.9 L (6.2-8.2) g/dL 02/07/21 02/07/21 02/07/21 Range/Units 04:14 07:04 12:09 MCV (80.0-97.0) fL MCH (27.0-32.0) pg BUN (9.0-27.0) mg/dL BUN/Creatinine Ratio (12.00-20.00) Ratio Glucose (70-110) mg/dL POC Glucose (mg/dL) 240 H 242 H (75-99) mg/dL Hemoglobin A1c 10.4 H (4.0-6.0) % AST (14-35) U/L ALT (10-49) U/L Total Protein (6.2-8.2) g/dL 05/16/21 Range/Units 17:06 MCV (80.0-97.0) fL MCH (27.0-32.0) pg BUN (9.0-27.0) mg/dL BUN/Creatinine Ratio (12.00-20.00) Ratio Glucose (70-110) mg/dL POC Glucose (mg/dL) 222 H (75-99) mg/dL Hemoglobin A1c (4.0-6.0) % AST (14-35) U/L ALT (10-49) U/L Total Protein (6.2-8.2) g/dL
[2021-02-07] MEDS ORDERED: cloNIDine HCL 0.2 MG TAB PO PRN (20:24)
[2021-02-07] MEDS: FOLIC ACID 1 MG TAB PO SCH (21:10)
[2021-02-07] MEDS: traZODone HCL 50 MG TAB PO SCH (21:11)
[2021-02-07 21:26] LABS: Glucose,Whole Blood 265 mg/dL (75-99)
[2021-02-07] MEDS: NICOTINE 21MG/24HR PATCH TRANSDERM SCH (21:43)
[2021-02-08 07:35] LABS: Glucose,Whole Blood 261 mg/dL (75-99)
[2021-02-08] MEDS: PANTOPRAZOLE 40 MG TABLET PO SCH ×2 (07:38→17:29)
[2021-02-08] MEDS: INSULIN ASPART (NovoLOG) 100 UNIT/ML VIAL SQ SCH ×4 (07:38→20:32)
[2021-02-08] MEDS: chlordiazePOXIDE 25 MG CAP PO SCH ×3 (07:38→20:31)
[2021-02-08] MEDS: NICOTINE 21MG/24HR PATCH TRANSDERM SCH (07:38)
[2021-02-08] MEDS: FOLIC ACID 1 MG TAB PO SCH (07:38)
[2021-02-08] MEDS: FLUoxetine HCL 10 MG CAP PO SCH (07:39)
[2021-02-08] MEDS: THIAMINE 100 MG TAB PO SCH ×2 (07:39→17:29)
[2021-02-08 08:52] LABS: HCT 45.5 % (39.6-50.0); HGB 15.8 g/dL (13.0-17.0); MCH 34.3 pg (27.0-32.0); MCHC 34.7 g/dL (32.0-37.0); MCV 98.9 fL (80.0-97.0); Mean Platelet Volume 10.9 fL (9.5-12.2); Platelet Count 145 X 10*3/uL (140-440); RDW 11.7 % (11.5-14.5); WBC 6.45 X 10*3/uL (4.50-10.00)
[2021-02-08 10:00] LABS: African American GFR (CKD) 114.1 (60.0-200.0); Albumin 4.2 g/dL (3.80-4.90); Anion Gap 8.2 mmol/L (4.00-12.00); Calcium 9.6 mg/dL (8.7-10.3); Carbon Dioxide 27.8 mmol/L (21.6-31.8); Globulin 2.1 g/dL (1.6-3.3); Non-African American GFR(CKD) 98.5 (60.0-200.0); Potassium 4.6 mmol/L (3.5-5.5); Total Bilirubin 0.9 mg/dL (0.3-1.2); Total Protein 6.3 g/dL (6.2-8.2)
[2021-02-08 12:11] LABS: Glucose,Whole Blood 263 mg/dL (75-99)
[2021-02-08] MEDS: metFORMIN 850 MG TAB PO SCH ×2 (12:24→17:29)
[2021-02-08] MEDS: LINAGLIPTIN 5 MG TABLET PO SCH (12:24)
[2021-02-08 13:20] VITALS: BMI 27.8
--- NOTE | 2021-02-08 16:31 | P.PN ---
Subjective Progress Note Date: 02/08/21 (delayed charting seen at 0915) Principal diagnosis: numbness in leg/feet and depression Patient is a 35-year-old male with a significant history of alcoholism, depression, and tobacco abuse who presented secondary to depression and alcohol addiction as well as numbness in his toes. In the ER he underwent an extensive evaluation. He was found to have new onset diabetes with blood sugars greater than 200. He was subsequently admitted for further monitoring. He was started on sliding scale insulin, A1c was ordered, and he was also started on CIWA protocol. 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 He was also seen by GI who did not plan for scope at this time as hemoglobin has been stable. He did well with the initiation of librium. Patient seen and examined at bedside. No chest pain, SOB, nausea, vomiting, or diarrhea, no tremors, no diaphoresis General: non toxic, no distress, appears at stated age Derm: warm, dry Head: atraumatic, normocephalic, symmetric Eyes: EOMI, no lid lag, anicteric sclera Mouth: no lip lesion, mucus membranes moist Cardiovascular: S1S2 reg, no murmur, positive posterior tibial pulse bilateral, Lungs: CTA bilateral, no rhonchi, no rales , no accessory muscle use Abdominal: soft, nontender to palpation, no guarding, no appreciable organomegaly Ext: no gross muscle atrophy, no edema, no contractures Neuro: CN II-XI grossly intact, no focal neuro deficits Psych: Alert, oriented, appropriate affect Alcohol abuse with impending withdrawal -Continue scheduled Librium -CIWA protocol -Thiamine and folic acid - Social work recs Newly discovered diabetes mellitus - hemoglobin A1c 10.4, start Januvia, Metformin -Sliding-scale insulin -tobacco prevention health educator to see patient -Would try to avoid insulin until patient's depression is better controlled. Alcoholic hepatitis - improving - abstain from ETOH Reported hematemesis - HgB stable - follow CBC - GI recs: no scope at this time Depression - psych recs - outpatient management Tobacco abuse -Cessation -Nicotine replacement DVT prophylaxis: SCDs Discussed with: patient, nursing, Social work Anticipated discharge:in AM Anticipated discharge place: home vs rehab A total of 35 minutes was spent on the care of this complex patient more than 50% of the time was spent in counseling and care coordination. Objective - Vital Signs Vital signs: Vital Signs Temp 98.1 F 02/08/21 14:10 Pulse 89 02/08/21 14:10 Resp 16 02/08/21 14:10 BP 121/74 02/08/21 14:10 Pulse Ox 96 02/08/21 14:10 Intake & Output 02/07/21 02/08/21 02/08/21 18:59 06:59 18:59 Intake Total 350 Balance 350 Weight 90.718 kg Intake: Oral 350 Other: Voiding Method Toilet Toilet Toilet # Voids 3 2 2 - Labs CBC & Chem 7: 02/08/21 04:57 02/08/21 04:57 Labs: Abnormal Lab Results - Last 24 Hours (Table) 02/07/21 02/07/21 02/08/21 Range/Units 17:06 21:17 04:57 MCV 98.9 H (80.0-97.0) fL MCH 34.3 H (27.0-32.0) pg BUN/Creatinine Ratio (12.00-20.00) Ratio Glucose (70-110) mg/dL POC Glucose (mg/dL) 222 H 265 H (75-99) mg/dL AST (14-35) U/L ALT (10-49) U/L 02/08/21 02/08/21 02/08/21 Range/Units 04:57 07:32 12:09 MCV (80.0-97.0) fL MCH (27.0-32.0) pg BUN/Creatinine Ratio 9.00 L (12.00-20.00) Ratio Glucose 293 H (70-110) mg/dL POC Glucose (mg/dL) 261 H 263 H (75-99) mg/dL AST 86 H (14-35) U/L ALT 108 H (10-49) U/L
[2021-02-08 17:16] LABS: Glucose,Whole Blood 198 mg/dL (75-99)
[2021-02-08 20:22] LABS: Glucose,Whole Blood 213 mg/dL (75-99)
[2021-02-08] MEDS: traZODone HCL 50 MG TAB PO SCH (20:31)
[2021-02-09 03:08] VITALS: PULSE 98
[2021-02-09 07:26] LABS: Glucose,Whole Blood 242 mg/dL (75-99)
[2021-02-09] MEDS: FOLIC ACID 1 MG TAB PO SCH (07:37)
[2021-02-09] MEDS: metFORMIN 850 MG TAB PO SCH (07:37)
[2021-02-09] MEDS: chlordiazePOXIDE 25 MG CAP PO SCH (07:37)
[2021-02-09] MEDS: LINAGLIPTIN 5 MG TABLET PO SCH (07:37)
[2021-02-09] MEDS: NICOTINE 21MG/24HR PATCH TRANSDERM SCH (07:38)
[2021-02-09] MEDS: FLUoxetine HCL 10 MG CAP PO SCH (07:38)
[2021-02-09] MEDS: INSULIN ASPART (NovoLOG) 100 UNIT/ML VIAL SQ SCH ×2 (07:38→11:36)
[2021-02-09] MEDS: PANTOPRAZOLE 40 MG TABLET PO SCH (07:38)
[2021-02-09] MEDS: THIAMINE 100 MG TAB PO SCH (07:38)
[2021-02-09 08:31] VITALS: BP 121/77; TEMP 97.7
[2021-02-09 11:24] LABS: Glucose,Whole Blood 216 mg/dL (75-99)
--- NOTE | 2021-02-09 11:43 | P.DS ---
Providers Date of admission: 02/08/21 09:20 Expected date of discharge: 02/09/21 Attending physician: Villa Rees MD Consults: 02/06/21 19:05 Consult Physician Routine Consulting Provider: Farhad Saenz Consult Reason/Comments: Depression Do you want consulting provider notified?: Yes Primary care physician: Stated None Hospital Course: Discharge Diagnosis: Alcohol abuse with withdrawal Newly discovered diabetes mellitus, A1c 10.4 Alcoholic hepatitis Depression Tobacco abuse Reported hematemesis, hemoglobin stable, no additional investigation was warranted Hospital Course: Patient is a 35-year-old male with a significant history of alcoholism, depression, and tobacco abuse who presented secondary to depression and alcohol addiction as well as numbness in his toes. In the ER he underwent an extensive evaluation. He was found to have new onset diabetes with blood sugars greater than 200. He was subsequently admitted for further monitoring. He was started on sliding scale insulin, A1c was 10.4, and he was also started on CIWA protocol. He met with psychiatry who felt he did not need inpatient psychiatric hospitalization but did need community resources for his depression and started prozac and trazodone. He was also seen by GI who did not plan for scope at this time as hemoglobin has been stable. He did well with the initiation of librium. He was started on oral medications for his diabetes and met with the diabeteic educator. He arranged for alcohol rehab on [facility].He will establish with Dr. Garrett as a PCP and his mother has diabetes and will be able to help him. Follow-up: Librium X 2 more days, Dr. Garrett, [facility] heart, Stared on metformin, januvia, and glyburide. Victoza was cost prohibitie, glucometer ordered. He was started on prozac and trazodone by psych. Patient seen and examined at bedside. No nausea, vomiting, no MARIN, no tremors. He is going to stay with his mother until his intake [facility]. She will control the librium, we discussed risk vs benefit and he is aware that it can lead to overdose and if combine with alcohol. Vital signs reviewed and stable. General: non toxic, no distress, appears at stated age Derm: warm, dry Head: atraumatic, normocephalic, symmetric Eyes: EOMI, no lid lag, anicteric sclera Mouth: no lip lesion, mucus membranes moist Cardiovascular: S1S2 reg, no murmur, positive posterior tibial pulse bilateral, Lungs: CTA bilateral, no rhonchi, no rales , no accessory muscle use Abdominal: soft, nontender to palpation, no guarding, no appreciable organomegaly Ext: no gross muscle atrophy, no edema, no contractures Neuro: CN II-XI grossly intact, no focal neuro deficits Psych: Alert, oriented, appropriate affect A total of 37 minutes of time were spent preparing this complex discharge summary . Patient Condition at Discharge: Fair Plan - Discharge Summary New Discharge Prescriptions: New traZODone HCL [Desyrel] 50 mg PO HS #30 tab Folic Acid 1 mg PO DAILY #15 tab glyBURIDE [Diabeta] 5 mg PO AC-BRKFST #30 tablet metFORMIN HCL [metFORMIN HCL ER] 750 mg PO DAILY #30 tab Liraglutide [Victoza 2-Santiago] 1.2 mg SQ DAILY #2 pen.injctr chlordiazePOXIDE HCl [Librium] 10 mg PO TID 2 Days #6 capsule FLUoxetine HCL [PROzac] 30 mg PO DAILY #90 cap Thiamine [Vitamin B-1] 100 mg PO BID-W/MEALS #30 tab Discharge Medication List FLUoxetine HCL [PROzac] 30 mg PO DAILY #90 cap 02/09/21 [Rx] Folic Acid 1 mg PO DAILY #15 tab 02/09/21 [Rx] Liraglutide [Victoza 2-Santiago] 1.2 mg SQ DAILY #2 pen.injctr 02/09/21 [Rx] Thiamine [Vitamin B-1] 100 mg PO BID-W/MEALS #30 tab 02/09/21 [Rx] chlordiazePOXIDE HCl [Librium] 10 mg PO TID 2 Days #6 capsule 02/09/21 [Rx] glyBURIDE [Diabeta] 5 mg PO AC-BRKFST #30 tablet 02/09/21 [Rx] metFORMIN HCL [metFORMIN HCL ER] 750 mg PO DAILY #30 tab 02/09/21 [Rx] traZODone HCL [Desyrel] 50 mg PO HS #30 tab 02/09/21 [Rx] Follow up Appointment(s)/Referral(s): Hever Garrett MD [REFERRING] - 1 Week None,Stated [Primary Care Provider] - 1-2 days Patient Instructions/Handouts: Hypoglycemia in a Person with Diabetes (DC), Type 2 Diabetes in Adults: New Diagnosis (DC), Alcohol Intoxication (DC) Activity/Diet/Wound Care/Special Instructions: Activity: as tolerated Diet: carb consistent Special Instructions: check blood sugars level in the morning before eating Do not combine Librium with Alcohol this can lead to overdose and , your mom must control those pills [facility]cometer and blood sugar testing supplies. To order more or to contact them for questions please call [phone]. Discharge Disposition: HOME SELF-CARE
== END 2021-02-09 11:48 | disposition home or self-care (01) | DRG 638 ==
LOC: EC 16:02 → 6NMEDSUR 20:16 → OBSVTOIN 02-08 09:20
PROVIDERS: ADMIT Internal Medicine; ATTEND Internal Medicine
DX: E11.65 Type 2 diabetes mellitus with hyperglycemia (principal); F10.239 Alcohol dependence with withdrawal, unspecified; K92.0 Hematemesis; K70.10 Alcoholic hepatitis without ascites; F10.229 Alcohol dependence with intoxication, unspecified; Z20.822 Contact with and (suspected) exposure to COVID-19; G62.9 Polyneuropathy, unspecified; F32.9 Major depressive disorder, single episode, unspecified; F41.1 Generalized anxiety disorder; Y90.7 Blood alcohol level of 200-239 mg/100 ml; F17.210 Nicotine dependence, cigarettes, uncomplicated; Z71.6 Tobacco abuse counseling; Z83.3 Family history of diabetes mellitus; Z81.8 Family history of other mental and behavioral disorders; Z81.1 Family history of alcohol abuse and dependence; Z81.4 Family history of other substance abuse and dependence
CPT/HCPCS: 36415; 80053; 80306; 80320; 81003; 82009; 83036; 83690; 83735; 84100; 85025; 85027; 87635; 96365; 96366; 96372; 96375; 99284

== ENCOUNTER 2021-04-28 12:21 | Emergency (ER) | payer BC ==
[2021-04-28 12:38] VITALS: BP 131/89; PULSE 95; RESP 20; TEMP 98.1
[2021-04-28] MEDS ORDERED: SODIUM CHLORIDE 0.9% 1,000 ML IV ONE (12:59)
--- NOTE | 2021-04-28 13:03 | ED ---
General Adult HPI - General Chief complaint: Psychiatric Symptoms Stated complaint: Mental health Time Seen by Provider: 04/28/21 12:40 Source: patient, RN notes reviewed, old records reviewed Mode of arrival: ambulatory Limitations: no limitations - History of Present Illness Initial comments: This is a 35-year-old male who presents emergency department stating that he is depressed and suicidal. Patient states he is an alcoholic and had been sober f or the last 3 months but started drinking 2 days ago. Patient states he's been depressed BUT OVER THE LAST COUPLE OF DAYS HE STARTED HAVING SOME SUICIDAL IDEATIONS. PATIENT DENIES ANY plan. Patient denies any drug use. Patient denies any physical complaints today. Patient denies headache patient denies numbness weakness. Patient denies any recent injury or trauma. Patient denies chest pain difficult breathing shortness of breath per patient, pain patient denies nausea vomiting diarrhea. - Related Data Home Medications Medication Instructions Recorded Confirmed DULoxetine HCL [Cymbalta] 30 mg PO BID 04/28/21 04/28/21 metFORMIN HCL [metFORMIN HCL ER] 750 mg PO BID 04/28/21 04/28/21 sitaGLIPtin [Januvia] 100 mg PO DAILY 04/28/21 04/28/21 Allergies Allergy/AdvReac Type Severity Reaction Status Date / Time No Known Allergies Allergy Verified 04/28/21 14:43 Review of Systems ROS Statement: Those systems with pertinent positive or pertinent negative responses have been documented in the HPI. ROS Other: All systems not noted in ROS Statement are negative. Past Medical History Past Medical History: No Reported History Additional Past Medical History / Comment(s): Depressed mood, alcohol abuse History of Any Multi-Drug Resistant Organisms: None Reported Past Surgical History: No Surgical Hx Reported Past Psychological History: Depression Smoking Status: Current every day smoker Past Alcohol Use History: Daily Past Drug Use History: Marijuana - Past Family History Family Family Medical History: No Reported History General Exam - General Exam Comments Initial Comments: GENERAL: Patient is well-developed and well-nourished. Patient is nontoxic and well- hydrated and is in no acute distress. ENT: Neck is soft and supple. No significant lymphadenopathy is noted. Oropharynx is clear. Moist mucous membranes. Neck has full range of motion without eliciting any pain. EYES: The sclera were anicteric and conjunctiva were pink and moist. Extraocular movements were intact and pupils were equal round and reactive to light. Eyelids were unremarkable. PULMONARY: Unlabored respirations. Good breath sounds bilaterally. No audible rales rhonchi or wheezing was noted. CARDIOVASCULAR: There is a regular rate and rhythm without any murmurs gallops or rubs. ABDOMEN: Soft and nontender with normal bowel sounds. SKIN: Skin is clear with no lesions or rashes and otherwise unremarkable. NEUROLOGIC: Patient is alert and oriented x3. Cranial nerves II through XII are grossly intact. Motor and sensory are also intact. Normal speech, volume and content. Symmetrical smile. MUSCULOSKELETAL: Normal extremities with adequate strength and full range of motion. LYMPHATICS: No significant lymphadenopathy is noted PSYCHIATRIC: Patient states she's very depressed and has been thinking about suicide last couple of days. Patient has no current plan. Limitations: no limitations Course Vital Signs 04/28/21 12:35 Temperature 98.1 F Pulse Rate 95 Respiratory 20 Rate Blood Pressure 131/89 O2 Sat by Pulse 96 Oximetry Medical Decision Making - Medical Decision Making EPS evaluated the patient conferred with the psychiatrist they thought the patient was safe to go home the patient at this point time now that he is sober stated he was no longer suicidal. Patient agreed to safety plan the patient was given a safety plan. Patient was given multiple avenues to follow-up and was told to return if symptoms are worse. - Lab Data Result diagrams: 04/28/21 13:13 04/28/21 13:13 Lab Results 04/28/21 04/28/21 04/28/21 Range/Units 13:02 13:13 13:13 WBC 12.6 H (3.8-10.6) k/uL RBC 5.32 (4.30-5.90) m/uL Hgb 17.3 (13.0-17.5) gm/dL Hct 49.9 (39.0-53.0) % MCV 93.8 (80.0-100.0) fL MCH 32.5 (25.0-35.0) pg MCHC 34.7 (31.0-37.0) g/dL RDW 11.9 (11.5-15.5) % Plt Count 369 (150-450) k/uL MPV 7.2 Neutrophils % 74 % Lymphocytes % 18 % Monocytes % 5 % Eosinophils % 1 % Basophils % 0 % Neutrophils # 9.3 H (1.3-7.7) k/uL Lymphocytes # 2.2 (1.0-4.8) k/uL Monocytes # 0.7 (0-1.0) k/uL Eosinophils # 0.1 (0-0.7) k/uL Basophils # 0.1 (0-0.2) k/uL Sodium 143 (137-145) mmol/L Potassium 4.2 (3.5-5.1) mmol/L Chloride 105 (98-107) mmol/L Carbon Dioxide 21 L (22-30) mmol/L Anion Gap 17 mmol/L BUN 10 (9-20) mg/dL Creatinine 0.62 L (0.66-1.25) mg/dL Est GFR (CKD-EPI)AfAm >90 (>60 ml/min/1.73 sqM) Est GFR (CKD-EPI)NonAf >90 (>60 ml/min/1.73 sqM) Glucose 138 H (74-99) mg/dL Calcium 10.5 H (8.4-10.2) mg/dL Magnesium 2.0 (1.6-2.3) mg/dL Total Bilirubin 0.3 (0.2-1.3) mg/dL AST 25 (17-59) U/L ALT 23 (4-49) U/L Alkaline Phosphatase 83 (38-126) U/L Total Protein 8.2 (6.3-8.2) g/dL Albumin 5.2 H (3.5-5.0) g/dL Urine Color Light Yellow Urine Appearance Clear (Clear) Urine pH 5.0 (5.0-8.0) Ur Specific [place] 1.006 (1.001-1.035) Urine Protein Negative (Negative) Urine Glucose (UA) Negative (Negative) Urine Ketones Negative (Negative) Urine Blood Negative (Negative) Urine Nitrite Negative (Negative) Urine Bilirubin Negative (Negative) Urine Urobilinogen <2.0 (<2.0) mg/dL Ur Leukocyte Esterase Negative (Negative) Urine Opiates Screen Not Detected (NotDetected) Ur Oxycodone Screen Not Detected (NotDetected) Urine Methadone Screen Not Detected (NotDetected) Ur Propoxyphene Screen Not Detected (NotDetected) Ur Barbiturates Screen Not Detected (NotDetected) U Tricyclic Antidepress Not Detected (NotDetected) Ur Phencyclidine Scrn Not Detected (NotDetected) Ur Amphetamines Screen Not Detected (NotDetected) U Methamphetamines Scrn Not Detected (NotDetected) U Benzodiazepines Scrn Not Detected (NotDetected) Urine Cocaine Screen Not Detected (NotDetected) U Marijuana (THC) Screen Not Detected (NotDetected) Disposition Clinical Impression: Depression, Alcohol intoxication Disposition: HOME SELF-CARE Instructions (If sedation given, give patient instructions): Depression (ED), Mouthwash (Into the mouth), Alcohol Intoxication (ED) Is patient prescribed a controlled substance at d/c from ED?: No Referrals: Eulogio Gan MD [Primary Care Provider] - 1-2 days Time of Disposition: 20:27
[2021-04-28 13:23] LABS: Appearance,Urine Clear (Clear); Bilirubin,Urine Negative (Negative); Blood,Urine Negative (Negative); Color,Urine Light Yellow; Glucose,Urine (UA) Negative (Negative); Ketones,Urine Negative (Negative); Leukocyte Esterase,Urine Negative (Negative); Nitrite,Urine Negative (Negative); Protein,Urine Negative (Negative); Specific Gravity,Urine 1.006 (1.001-1.035); Urobilinogen,Urine <2.0 mg/dL (<2.0)
[2021-04-28 13:29] LABS: Basophils # (A) 0.1 k/uL (0-0.2); Basophils % (A) 0 %; Eosinophils # (A) 0.1 k/uL (0-0.7); Eosinophils % (A) 1 %; HCT 49.9 % (39.0-53.0); HGB 17.3 gm/dL (13.0-17.5); Lymphocytes # (A) 2.2 k/uL (1.0-4.8); Lymphocytes % (A) 18 %; MCH 32.5 pg (25.0-35.0); MCHC 34.7 g/dL (31.0-37.0); MCV 93.8 fL (80.0-100.0); Mean Platelet Volume 7.2; Monocytes # (A) 0.7 k/uL (0-1.0); Monocytes % (A) 5 %; Neutrophils # (A) 9.3 k/uL (1.3-7.7); Neutrophils % (A) 74 %; Platelet Count 369 k/uL (150-450); RBC 5.32 m/uL (4.30-5.90); RDW 11.9 % (11.5-15.5); WBC 12.6 k/uL (3.8-10.6)
[2021-04-28 13:35] LABS: Amphetamine Screen,Urine Not Detected (NotDetected); Barbiturate Screen,Urine Not Detected (NotDetected); Benzodiazepines Screen,Urine Not Detected (NotDetected); Cocaine Screen,Urine Not Detected (NotDetected); Methadone Screen, Urine Not Detected (NotDetected); Opiate Screen,Urine Not Detected (NotDetected); Oxycodone Screen, Urine Not Detected (NotDetected); Phencyclidine Screen,Urine Not Detected (NotDetected); Tricyclic Antidepressant,Urine Not Detected (NotDetected); Urn Cannabinoid Scrn Not Detected (NotDetected)
[2021-04-28 13:40] LABS: ALT 23 U/L (4-49); AST 25 U/L (17-59); African American GFR (CKD) >90 (>60 ml/min/1.73 sqM); Albumin 5.2 g/dL (3.5-5.0); Alkaline Phosphatase 83 U/L (38-126); Anion Gap 17 mmol/L; Blood Urea Nitrogen 10 mg/dL (9-20); Calcium 10.5 mg/dL (8.4-10.2); Carbon Dioxide 21 mmol/L (22-30); Chloride 105 mmol/L (98-107); Glucose 138 mg/dL (74-99); Non-African American GFR(CKD) >90 (>60 ml/min/1.73 sqM); Potassium 4.2 mmol/L (3.5-5.1); Sodium 143 mmol/L (137-145); Total Bilirubin 0.3 mg/dL (0.2-1.3); Total Protein 8.2 g/dL (6.3-8.2)
== END 2021-04-28 20:43 | disposition home or self-care (01) ==
LOC: EC 12:21
DX: F32.9 Major depressive disorder, single episode, unspecified (principal); F10.129 Alcohol abuse with intoxication, unspecified; R45.851 Suicidal ideations; F17.200 Nicotine dependence, unspecified, uncomplicated; F12.90 Cannabis use, unspecified, uncomplicated; Y90.9 Presence of alcohol in blood, level not specified
CPT/HCPCS: 36415; 80053; 80306; 81003; 83735; 85025; 96360; 99284

== ENCOUNTER 2021-08-30 05:52 | Emergency (ER) | payer BC, OTHER ==
[2021-08-30] MEDS ORDERED: ONDANSETRON 4 MG/2 ML VIAL IVP STA (06:13)
[2021-08-30] MEDS ORDERED: SODIUM CHLORIDE 0.9% 1,000 ML IV STA ×2 (06:13→07:40)
[2021-08-30] MEDS ORDERED: LORazepam 2 MG/ML INJ IV STA (06:19)
--- NOTE | 2021-08-30 06:20 | ED ---
General Adult HPI - General Chief complaint: Chest Pain Stated complaint: Chest Pain Time Seen by Provider: 08/30/21 06:07 Source: patient, RN notes reviewed Mode of arrival: wheelchair Limitations: no limitations - History of Present Illness Initial comments: 35-year-old male with a past medical history of hypertension, NIDDM, alcohol abuse presents to the emergency room for upper abdominal pain. Patient has had upper abdominal pain since he woke up today. Describes it as a pressure radiating to his back. Denies diaphoresis. Admits to nausea vomiting. Patient states he usually drinks a fifth of alcohol daily but has not had a drink for 4 days. Patient denies fevers or chills. Denies diarrhea. Denies shortness of breath.Patient has no other complaints at this time including shortness of breath, headache, or visual changes. - Related Data Home Medications Medication Instructions Recorded Confirmed metFORMIN HCL [metFORMIN HCL ER] 750 mg PO BID 04/28/21 08/30/21 sitaGLIPtin [Januvia] 100 mg PO DAILY 04/28/21 08/30/21 Allergies Allergy/AdvReac Type Severity Reaction Status Date / Time No Known Allergies Allergy Verified 08/30/21 08:41 Review of Systems ROS Statement: Those systems with pertinent positive or pertinent negative responses have been documented in the HPI. ROS Other: All systems not noted in ROS Statement are negative. Past Medical History Past Medical History: Diabetes Mellitus, Hypertension Additional Past Medical History / Comment(s): Depressed mood, alcohol abuse History of Any Multi-Drug Resistant Organisms: None Reported Past Surgical History: No Surgical Hx Reported Past Psychological History: Depression Smoking Status: Current every day smoker Past Alcohol Use History: Daily Past Drug Use History: Marijuana - Past Family History Family Family Medical History: No Reported History General Exam Limitations: no limitations General appearance: alert, in no apparent distress Head exam: Present: atraumatic Eye exam: Present: normal appearance, PERRL, EOMI. Absent: scleral icterus, conjunctival injection ENT exam: Present: normal exam, mucous membranes moist Neck exam: Present: normal inspection, full ROM. Absent: tenderness Respiratory exam: Present: normal lung sounds bilaterally. Absent: respiratory distress, wheezes Cardiovascular Exam: Present: regular rate, normal rhythm, normal heart sounds GI/Abdominal exam: Present: soft, tenderness (mild epigastric tenderss), normal bowel sounds. Absent: distended, guarding, rebound Course Vital Signs 12/06/21 12/06/21 12/06/21 05:57 06:55 07:22 Temperature 98.9 F Pulse Rate 105 H 101 H 96 Respiratory 22 18 20 Rate Blood Pressure 176/102 165/114 162/106 O2 Sat by Pulse 98 94 L 96 Oximetry 08/30/21 09:32 Temperature Pulse Rate 90 Respiratory 20 Rate Blood Pressure 145/102 O2 Sat by Pulse 98 Oximetry EKG Findings - EKG Comments: EKG Findings:: Sinus tachycardia, ventricular rate 104, [place] interval 136, QTc 462 Medical Decision Making - Medical Decision Making Are stable. Patient mildly hypertensive which she does have a history of. CBC does show mild hemoconcentration, likely related to dehydration. CMP does reveal hyperglycemia treated with fluids which did improve to 261. Suspect anion gap of 18 and secondary to starvation/alcohol ketosis given patient is withdrawing from alcohol. Patient's withdrawal symptoms are actually improving and he feels much better. A lipase is 720, which is mildly elevated however not significant for an acute pancreatitis. Gallbladder ultrasound unremarkable. Suture were obtained which were negative. Pain does not seem typical. Teeth discussed with Dr. mejia who is comfortable seeing patient outpatient. Patient will be discharged home to follow-up but did discuss strict return parameters. He will return here for any worsening symptoms. - Lab Data Result diagrams: 08/30/21 06:17 08/30/21 06:17 Lab Results 08/30/21 08/30/21 08/30/21 Range/Units 06:17 06:17 06:17 WBC 13.3 H (3.8-10.6) k/uL RBC 5.26 (4.30-5.90) m/uL Hgb 17.6 H (13.0-17.5) gm/dL Hct 48.2 (39.0-53.0) % MCV 91.8 (80.0-100.0) fL MCH 33.5 (25.0-35.0) pg MCHC 36.5 (31.0-37.0) g/dL RDW 13.0 (11.5-15.5) % Plt Count 206 (150-450) k/uL MPV 8.1 Neutrophils % 75 % Lymphocytes % 15 % Monocytes % 5 % Eosinophils % 2 % Basophils % 1 % Neutrophils # 10.0 H (1.3-7.7) k/uL Lymphocytes # 2.0 (1.0-4.8) k/uL Monocytes # 0.6 (0-1.0) k/uL Eosinophils # 0.3 (0-0.7) k/uL Basophils # 0.1 (0-0.2) k/uL Sodium 133 L (137-145) mmol/L Potassium 4.3 (3.5-5.1) mmol/L Chloride 93 L (98-107) mmol/L Carbon Dioxide 22 (22-30) mmol/L Anion Gap 18 mmol/L BUN 12 (9-20) mg/dL Creatinine 0.75 (0.66-1.25) mg/dL Est GFR (CKD-EPI)AfAm >90 (>60 ml/min/1.73 sqM) Est GFR (CKD-EPI)NonAf >90 (>60 ml/min/1.73 sqM) Glucose 368 H (74-99) mg/dL POC Glucose (mg/dL) (75-99) mg/dL POC Glu Spice Miller ID Plasma Lactic Acid Nilesh 1.3 (0.7-2.0) mmol/L Calcium 11.1 H (8.4-10.2) mg/dL Magnesium 1.7 (1.6-2.3) mg/dL Total Bilirubin 1.0 (0.2-1.3) mg/dL AST 93 H (17-59) U/L ALT 194 H (4-49) U/L Alkaline Phosphatase 103 (38-126) U/L Troponin I (0.000-0.034) ng/mL Total Protein 8.4 H (6.3-8.2) g/dL Albumin 5.2 H (3.5-5.0) g/dL Amylase 87 (30-110) U/L Lipase 720 H (23-300) U/L Urine Color Urine Appearance (Clear) Urine pH (5.0-8.0) Ur Specific [place] (1.001-1.035) Urine Protein (Negative) Urine Glucose (UA) (Negative) Urine Ketones (Negative) Urine Blood (Negative) Urine Nitrite (Negative) Urine Bilirubin (Negative) Urine Urobilinogen (<2.0) mg/dL Ur Leukocyte Esterase (Negative) 08/30/21 08/30/21 08/30/21 Range/Units 06:17 07:25 09:32 WBC (3.8-10.6) k/uL RBC (4.30-5.90) m/uL Hgb (13.0-17.5) gm/dL Hct (39.0-53.0) % MCV (80.0-100.0) fL MCH (25.0-35.0) pg MCHC (31.0-37.0) g/dL RDW (11.5-15.5) % Plt Count (150-450) k/uL MPV Neutrophils % % Lymphocytes % % Monocytes % % Eosinophils % % Basophils % % Neutrophils # (1.3-7.7) k/uL Lymphocytes # (1.0-4.8) k/uL Monocytes # (0-1.0) k/uL Eosinophils # (0-0.7) k/uL Basophils # (0-0.2) k/uL Sodium (137-145) mmol/L Potassium (3.5-5.1) mmol/L Chloride (98-107) mmol/L Carbon Dioxide (22-30) mmol/L Anion Gap mmol/L BUN (9-20) mg/dL Creatinine (0.66-1.25) mg/dL Est GFR (CKD-EPI)AfAm (>60 ml/min/1.73 sqM) Est GFR (CKD-EPI)NonAf (>60 ml/min/1.73 sqM) Glucose (74-99) mg/dL POC Glucose (mg/dL) (75-99) mg/dL POC Glu Spice Miller ID Plasma Lactic Acid Nilesh (0.7-2.0) mmol/L Calcium (8.4-10.2) mg/dL Magnesium (1.6-2.3) mg/dL Total Bilirubin (0.2-1.3) mg/dL AST (17-59) U/L ALT (4-49) U/L Alkaline Phosphatase (38-126) U/L Troponin I <0.012 <0.012 (0.000-0.034) ng/mL Total Protein (6.3-8.2) g/dL Albumin (3.5-5.0) g/dL Amylase (30-110) U/L Lipase (23-300) U/L Urine Color Light Yellow Urine Appearance Clear (Clear) Urine pH 5.5 (5.0-8.0) Ur Specific [place] 1.036 H (1.001-1.035) Urine Protein Negative (Negative) Urine Glucose (UA) 4+ H (Negative) Urine Ketones 2+ H (Negative) Urine Blood Negative (Negative) Urine Nitrite Negative (Negative) Urine Bilirubin Negative (Negative) Urine Urobilinogen <2.0 (<2.0) mg/dL Ur Leukocyte Esterase Negative (Negative) 08/30/21 Range/Units 10:33 WBC (3.8-10.6) k/uL RBC (4.30-5.90) m/uL Hgb (13.0-17.5) gm/dL Hct (39.0-53.0) % MCV (80.0-100.0) fL MCH (25.0-35.0) pg MCHC (31.0-37.0) g/dL RDW (11.5-15.5) % Plt Count (150-450) k/uL MPV Neutrophils % % Lymphocytes % % Monocytes % % Eosinophils % % Basophils % % Neutrophils # (1.3-7.7) k/uL Lymphocytes # (1.0-4.8) k/uL Monocytes # (0-1.0) k/uL Eosinophils # (0-0.7) k/uL Basophils # (0-0.2) k/uL Sodium (137-145) mmol/L Potassium (3.5-5.1) mmol/L Chloride (98-107) mmol/L Carbon Dioxide (22-30) mmol/L Anion Gap mmol/L BUN (9-20) mg/dL Creatinine (0.66-1.25) mg/dL Est GFR (CKD-EPI)AfAm (>60 ml/min/1.73 sqM) Est GFR (CKD-EPI)NonAf (>60 ml/min/1.73 sqM) Glucose (74-99) mg/dL POC Glucose (mg/dL) 261 H (75-99) mg/dL POC Glu Spice Miller ID MonicaSanti Plasma Lactic Acid Nilesh (0.7-2.0) mmol/L Calcium (8.4-10.2) mg/dL Magnesium (1.6-2.3) mg/dL Total Bilirubin (0.2-1.3) mg/dL AST (17-59) U/L ALT (4-49) U/L Alkaline Phosphatase (38-126) U/L Troponin I (0.000-0.034) ng/mL Total Protein (6.3-8.2) g/dL Albumin (3.5-5.0) g/dL Amylase (30-110) U/L Lipase (23-300) U/L Urine Color Urine Appearance (Clear) Urine pH (5.0-8.0) Ur Specific [place] (1.001-1.035) Urine Protein (Negative) Urine Glucose (UA) (Negative) Urine Ketones (Negative) Urine Blood (Negative) Urine Nitrite (Negative) Urine Bilirubin (Negative) Urine Urobilinogen (<2.0) mg/dL Ur Leukocyte Esterase (Negative) Disposition Clinical Impression: Elevated lipase, Alcohol withdrawal, Hyperglycemia Disposition: HOME SELF-CARE Condition: Good Instructions (If sedation given, give patient instructions): Pancreatitis (ED) Additional Instructions: Please follow up with primary care in 1-2 days. Return to the ER for any worsening symptoms. Is patient prescribed a controlled substance at d/c from ED?: No Referrals: Eulogio Gan MD [Primary Care Provider] - 1-2 days Time of Disposition: 10:55
[2021-08-30 06:31] LABS: Basophils # (A) 0.1 k/uL (0-0.2); Basophils % (A) 1 %; Eosinophils # (A) 0.3 k/uL (0-0.7); Eosinophils % (A) 2 %; HCT 48.2 % (39.0-53.0); HGB 17.6 gm/dL (13.0-17.5); Lymphocytes % (A) 15 %; MCH 33.5 pg (25.0-35.0); MCHC 36.5 g/dL (31.0-37.0); MCV 91.8 fL (80.0-100.0); Mean Platelet Volume 8.1; Monocytes # (A) 0.6 k/uL (0-1.0); Monocytes % (A) 5 %; Neutrophils % (A) 75 %; Platelet Count 206 k/uL (150-450); RBC 5.26 m/uL (4.30-5.90); WBC 13.3 k/uL (3.8-10.6)
--- NOTE | 2021-08-30 06:35 | XR ---
EXAMINATION TYPE: XR chest 2V DATE OF EXAM: 08/30/2021 COMPARISON: NONE HISTORY: Chest and abdominal pain. TECHNIQUE: Frontal and lateral views of the chest are obtained. FINDINGS: There is no focal air space opacity, pleural effusion, or pneumothorax seen. The cardiac silhouette size is upper limits of normal. The osseous structures are intact. Overlying EKG leads. IMPRESSION: No acute process.
--- NOTE | 2021-08-30 06:36 | XR ---
EXAMINATION TYPE: XR KUB DATE OF EXAM: 08/30/2021 6:32 AM CLINICAL HISTORY: Abdominal pain. TECHNIQUE: Two Upright KUB images of the abdomen are obtained. COMPARISON: Abdominal x-ray December 27, 2019. FINDINGS: Gas is seen in nondistended stomach bubble. Scattered gas is seen in non-distended small chacho wel loops. Gas and fecal material is seen in non-distended colon. There is no visceromegaly, pneumope ritoneum, or abnormal calcification appreciated. The lung bases are clear and the osseous structures are intact. IMPRESSION: Overall nonobstructive bowel gas pattern.
[2021-08-30] MEDS: HYDROmorphone 0.5 MG/0.5 ML SYRINGE IVP STA ×2 (06:41→06:48)
[2021-08-30 06:44] LABS: ALT 194 U/L (4-49); AST 93 U/L (17-59); African American GFR (CKD) >90 (>60 ml/min/1.73 sqM); Albumin 5.2 g/dL (3.5-5.0); Alkaline Phosphatase 103 U/L (38-126); Amylase 87 U/L (30-110); Anion Gap 18 mmol/L; Blood Urea Nitrogen 12 mg/dL (9-20); Calcium 11.1 mg/dL (8.4-10.2); Carbon Dioxide 22 mmol/L (22-30); Chloride 93 mmol/L (98-107); Glucose 368 mg/dL (74-99); Lipase 720 U/L (23-300); Magnesium 1.7 mg/dL (1.6-2.3); Non-African American GFR(CKD) >90 (>60 ml/min/1.73 sqM); Potassium 4.3 mmol/L (3.5-5.1); Sodium 133 mmol/L (137-145); Total Protein 8.4 g/dL (6.3-8.2)
[2021-08-30] MEDS ORDERED: HYDROmorphone 0.5 MG/0.5 ML SYRINGE IVP STA ×2 (06:48→07:25)
--- NOTE | 2021-08-30 07:30 | US ---
EXAMINATION TYPE: US gallbladder DATE OF EXAM: 08/30/2021 COMPARISON: NONE CLINICAL HISTORY: pain. RUQ pain today EXAM MEASUREMENTS: Liver Length: 19.5 cm Gallbladder Wall: 0.2 cm CBD: 0.5 cm Right Kidney: 11.4 x 4.6 x 4.7 cm Pancreas: limited views appear wnl Liver: heterogeneous and enlarged Gallbladder: wnl Evidence for sonographic Rich's sign: no CBD: wnl Right Kidney: wnl Visualized portion of pancreas within normal limits. Hepatomegaly with heterogeneous hyperechoic appe arance of liver. No surrounding ascites. Evaluation for focal masses suboptimal due to the heterogene ity. Finding likely on basis of diffuse fatty infiltration. No intrahepatic or extra hepatic biliary dilatation. No shadowing mobile gallstones. No right-sided hydronephrosis. IMPRESSION: No gallstones or ultrasonic evidence for acute cholecystitis.
[2021-08-30 07:41] LABS: Appearance,Urine Clear (Clear); Bilirubin,Urine Negative (Negative); Blood,Urine Negative (Negative); Color,Urine Light Yellow; Glucose,Urine (UA) 4+ (Negative); Leukocyte Esterase,Urine Negative (Negative); Nitrite,Urine Negative (Negative); PH, Urine 5.5 (5.0-8.0); Protein,Urine Negative (Negative); Specific Gravity,Urine 1.036 (1.001-1.035); Urobilinogen,Urine <2.0 mg/dL (<2.0)
[2021-08-30 08:37] LABS: Ketones,Urine 2+ (Negative)
[2021-08-30 10:38] LABS: Glucose,Whole Blood 261 mg/dL (75-99)
[2021-08-30] MEDS ORDERED: ACET/COD 300 MG/30 MG STARTER PACK 6 TAB BTL PO STA (11:26)
[2021-08-30 11:29] VITALS: BP 165/115; PULSE 87; RESP 16; TEMP 98.2
== END 2021-08-30 11:28 | disposition home or self-care (01) ==
LOC: EC 05:52
DX: R74.8 Abnormal levels of other serum enzymes (principal); F10.239 Alcohol dependence with withdrawal, unspecified; E11.65 Type 2 diabetes mellitus with hyperglycemia; I10 Essential (primary) hypertension; F32.A Depression, unspecified; F17.200 Nicotine dependence, unspecified, uncomplicated; F12.90 Cannabis use, unspecified, uncomplicated; Z79.84 Long term (current) use of oral hypoglycemic drugs; Y90.9 Presence of alcohol in blood, level not specified
CPT/HCPCS: 99285; 96374; 96375 ×2; 96376; 96361 ×2; 36415; 93005; 80053; 82150; 83605; 83690; 83735; 84484; 85025; 81003; 87635; 71046; 74018; 76705; J2060; J2405; J1170

== ENCOUNTER 2021-08-30 21:28 | Inpatient (IN) | payer BC, OTHER ==
[2021-08-30] MEDS ORDERED: MORPHINE SULFATE 4 MG/ML SYRINGE IV STA (21:38)
[2021-08-30] MEDS ORDERED: ONDANSETRON 4 MG/2 ML VIAL IVP STA (21:38)
[2021-08-30] MEDS ORDERED: SODIUM CHLORIDE 0.9% 1,000 ML IV STA (21:38)
--- NOTE | 2021-08-30 22:53 | ED ---
Abdominal Pain HPI - General Chief Complaint: Abdominal Pain Stated Complaint: re-check Time Seen by Provider: 08/30/21 21:34 Source: patient, RN notes reviewed Mode of arrival: ambulatory Limitations: no limitations - History of Present Illness Initial Comments: Patient is a 35-year-old male that presents to the emergency department complaining of left upper quadrant pain. He was recently seen in the emergency Department this morning diagnosed with acute pancreatitis alcohol withdrawal. Patient notes he was given a Tylenol 3 starter pack which tarry taken 5 of them. Patient notes he did eat chicken noodle soup throughout the day. He notes that he is diabetic and has high blood pressure alcohol abuse and history of pancreatitis. Patient notes that his symptoms have been constant and persistent throughout the day with no relief. He notes this is what brought him back to the emergency room. Patient denied any new symptoms. He noted no alleviating or aggravating factors at this time. Patient denied chest pain shortness of breath headache diarrhea constipation fever fatigue chills. - Related Data Home Medications Medication Instructions Recorded Confirmed metFORMIN HCL [metFORMIN HCL ER] 750 mg PO BID 04/28/21 08/30/21 sitaGLIPtin [Januvia] 100 mg PO DAILY 04/28/21 08/30/21 Acetaminophen-Codeine 300-30mg 1 tab PO DIRECTED 08/30/21 08/30/21 [Tylenol w/codeine #3] Allergies Allergy/AdvReac Type Severity Reaction Status Date / Time No Known Allergies Allergy Verified 08/30/21 23:22 Review of Systems ROS Statement: Those systems with pertinent positive or pertinent negative responses have been documented in the HPI. ROS Other: All systems not noted in ROS Statement are negative. Past Medical History Past Medical History: Diabetes Mellitus, Hypertension Additional Past Medical History / Comment(s): Depressed mood, alcohol abuse, pancreatitis History of Any Multi-Drug Resistant Organisms: None Reported Past Surgical History: No Surgical Hx Reported Past Psychological History: Depression Smoking Status: Current every day smoker Past Alcohol Use History: Daily Past Drug Use History: Marijuana - Past Family History Family Family Medical History: No Reported History General Exam Limitations: no limitations General appearance: alert, in distress (Mild) Head exam: Present: atraumatic, normocephalic, normal inspection Eye exam: Present: normal appearance, PERRL, EOMI. Absent: scleral icterus, conjunctival injection, periorbital swelling ENT exam: Present: normal exam, mucous membranes moist Neck exam: Present: normal inspection Respiratory exam: Present: normal lung sounds bilaterally. Absent: respiratory distress, wheezes, rales, rhonchi, stridor Cardiovascular Exam: Present: regular rate, normal rhythm, normal heart sounds. Absent: systolic murmur, diastolic murmur, rubs, gallop, clicks GI/Abdominal exam: Present: soft, tenderness (Epigastric and left upper quadrant), normal bowel sounds. Absent: distended, guarding, rebound, rigid Extremities exam: Present: normal inspection, full ROM, normal capillary refill. Absent: tenderness, pedal edema, joint swelling, calf tenderness Neurological exam: Present: alert, oriented X3 Psychiatric exam: Present: normal affect, normal mood Skin exam: Present: warm, dry, intact, normal color. Absent: rash Course Vital Signs 08/30/21 08/30/21 21:30 23:08 Temperature 98.0 F Pulse Rate 121 H 105 H Respiratory 18 18 Rate Blood Pressure 180/131 190/106 O2 Sat by Pulse 98 96 Oximetry Medical Decision Making - Medical Decision Making 35-year-old male complaining of pancreatitis pain, discharged this morning from the hospital with Tylenol 3 starter pack. Patient returned due to constant persistent pain. Labs, 1 L normal saline, 4 mg of morphine, 4 mg of Zofran ordered. Labs: White blood cells 12.1, amylase 253, lipase 3933, acetone negative Case discussed with Dr. Morales and patient will be admitted for acute pancreatitis. Case handed off to Dr. Morales. - Lab Data Result diagrams: 08/30/21 22:48 08/30/21 22:48 Lab Results 08/30/21 08/30/21 08/30/21 Range/Units 22:48 22:48 23:38 WBC 12.1 H (3.8-10.6) k/uL RBC 5.04 (4.30-5.90) m/uL Hgb 16.6 (13.0-17.5) gm/dL Hct 46.6 (39.0-53.0) % MCV 92.4 (80.0-100.0) fL MCH 33.0 (25.0-35.0) pg MCHC 35.7 (31.0-37.0) g/dL RDW 13.1 (11.5-15.5) % Plt Count 186 (150-450) k/uL MPV 8.1 Neutrophils % 79 % Lymphocytes % 12 % Monocytes % 5 % Eosinophils % 3 % Basophils % 1 % Neutrophils # 9.5 H (1.3-7.7) k/uL Lymphocytes # 1.4 (1.0-4.8) k/uL Monocytes # 0.6 (0-1.0) k/uL Eosinophils # 0.3 (0-0.7) k/uL Basophils # 0.1 (0-0.2) k/uL Sodium 135 L (137-145) mmol/L Potassium 4.3 (3.5-5.1) mmol/L Chloride 98 (98-107) mmol/L Carbon Dioxide 20 L (22-30) mmol/L Anion Gap 17 mmol/L BUN 9 (9-20) mg/dL Creatinine 0.62 L (0.66-1.25) mg/dL Est GFR (CKD-EPI)AfAm >90 (>60 ml/min/1.73 sqM) Est GFR (CKD-EPI)NonAf >90 (>60 ml/min/1.73 sqM) Glucose 298 H (74-99) mg/dL POC Glucose (mg/dL) 256 H (75-99) mg/dL POC Glu Welding Process Engineer ID Iggy Castro Calcium 9.9 (8.4-10.2) mg/dL Total Bilirubin 1.0 (0.2-1.3) mg/dL AST 93 H (17-59) U/L ALT 156 H (4-49) U/L Alkaline Phosphatase 85 (38-126) U/L Total Protein 7.8 (6.3-8.2) g/dL Albumin 4.8 (3.5-5.0) g/dL Amylase 253 H (30-110) U/L Lipase 3933 H (23-300) U/L Acetone, Qual Negative (Negative) Disposition Clinical Impression: Pancreatitis, Elevated lipase, Alcohol withdrawal, Elevated amylase Disposition: ADMITTED IP TO THIS [facility] Condition: Stable Is patient prescribed a controlled substance at d/c from ED?: No Referrals: Katherine Gan MD [Primary Care Provider] - 1-2 days Time of Disposition: 23:45
[2021-08-30 22:57] LABS: Basophils # (A) 0.1 k/uL (0-0.2); Basophils % (A) 1 %; Eosinophils # (A) 0.3 k/uL (0-0.7); Eosinophils % (A) 3 %; HCT 46.6 % (39.0-53.0); HGB 16.6 gm/dL (13.0-17.5); Lymphocytes # (A) 1.4 k/uL (1.0-4.8); Lymphocytes % (A) 12 %; MCHC 35.7 g/dL (31.0-37.0); MCV 92.4 fL (80.0-100.0); Mean Platelet Volume 8.1; Monocytes # (A) 0.6 k/uL (0-1.0); Monocytes % (A) 5 %; Neutrophils # (A) 9.5 k/uL (1.3-7.7); Neutrophils % (A) 79 %; Platelet Count 186 k/uL (150-450); RBC 5.04 m/uL (4.30-5.90); RDW 13.1 % (11.5-15.5); WBC 12.1 k/uL (3.8-10.6)
[2021-08-30] MEDS ORDERED: HYDROmorphone 1 MG/ML 1 ML SYRINGE IVP STA (23:10)
[2021-08-30 23:17] LABS: Anion Gap 17 mmol/L; Blood Urea Nitrogen 9 mg/dL (9-20); Carbon Dioxide 20 mmol/L (22-30); Chloride 98 mmol/L (98-107); Glucose 298 mg/dL (74-99); Potassium 4.3 mmol/L (3.5-5.1); Sodium 135 mmol/L (137-145)
[2021-08-30 23:18] LABS: ALT 156 U/L (4-49); AST 93 U/L (17-59); African American GFR (CKD) >90 (>60 ml/min/1.73 sqM); Albumin 4.8 g/dL (3.5-5.0); Alkaline Phosphatase 85 U/L (38-126); Amylase 253 U/L (30-110); Calcium 9.9 mg/dL (8.4-10.2); Non-African American GFR(CKD) >90 (>60 ml/min/1.73 sqM); Total Protein 7.8 g/dL (6.3-8.2)
[2021-08-30 23:39] LABS: Glucose,Whole Blood 256 mg/dL (75-99)
[2021-08-30 23:39] LABS: Lipase 3933 U/L (23-300)
[2021-08-30] MEDS ORDERED: LORazepam 2 MG/ML INJ IV PRN ×3 (23:42)
[2021-08-30] MEDS ORDERED: THIAMINE 100 MG/ML 2 ML VIAL IM STA (23:42)
[2021-08-30] MEDS ORDERED: NALOXONE 0.4 MG/ML 1 ML VIAL IV PRN (23:45)
[2021-08-30] MEDS ORDERED: ONDANSETRON 4 MG/2 ML VIAL IVP PRN (23:47)
[2021-08-31] MEDS: SODIUM CHLORIDE 0.9% 1,000 ML IV SCH ×3 (00:36→21:05)
[2021-08-31] MEDS: MORPHINE SULFATE 4 MG/ML SYRINGE IV PRN ×4 (03:04→20:04)
[2021-08-31] MEDS ORDERED: hydrALAZINE HCL 20 MG/ML 1 ML VIAL IVP STA (03:13)
[2021-08-31] MEDS ORDERED: LABETALOL 5 MG/ML VIAL MDV IVP STA (03:13)
[2021-08-31] MEDS: HYDROmorphone 1 MG/ML 1 ML SYRINGE IVP PRN ×6 (03:39→21:21)
[2021-08-31 06:32] LABS: Basophils # (A) 0.1 k/uL (0-0.2); Basophils % (A) 0 %; Eosinophils # (A) 0.3 k/uL (0-0.7); Eosinophils % (A) 2 %; HCT 47.5 % (39.0-53.0); HGB 17.1 gm/dL (13.0-17.5); Lymphocytes % (A) 15 %; MCH 33.9 pg (25.0-35.0); MCV 94.1 fL (80.0-100.0); Mean Platelet Volume 8.3; Monocytes # (A) 0.8 k/uL (0-1.0); Monocytes % (A) 6 %; Neutrophils # (A) 10.3 k/uL (1.3-7.7); Neutrophils % (A) 76 %; Platelet Count 201 k/uL (150-450); RBC 5.05 m/uL (4.30-5.90); RDW 13.4 % (11.5-15.5); WBC 13.5 k/uL (3.8-10.6)
[2021-08-31 06:47] LABS: Chloride 99 mmol/L (98-107); Glucose 251 mg/dL (74-99); Potassium 4.2 mmol/L (3.5-5.1); Sodium 138 mmol/L (137-145)
[2021-08-31 06:48] LABS: ALT 142 U/L (4-49); AST 72 U/L (17-59); African American GFR (CKD) >90 (>60 ml/min/1.73 sqM); Albumin 4.9 g/dL (3.5-5.0); Alkaline Phosphatase 92 U/L (38-126); Anion Gap 17 mmol/L; Blood Urea Nitrogen 6 mg/dL (9-20); Calcium 9.6 mg/dL (8.4-10.2); Carbon Dioxide 22 mmol/L (22-30); Non-African American GFR(CKD) >90 (>60 ml/min/1.73 sqM); Total Protein 7.9 g/dL (6.3-8.2)
[2021-08-31 07:42] LABS: Lipase 9112 U/L (23-300)
[2021-08-31] MEDS: THIAMINE 100 MG TAB PO SCH ×2 (08:57→18:05)
[2021-08-31] MEDS ORDERED: MORPHINE SULFATE 4 MG/ML SYRINGE IVP STA (09:27)
[2021-08-31] MEDS ORDERED: SODIUM CHLORIDE 0.9% 2,000 ML IV ONE (11:24)
[2021-08-31 11:47] LABS: Glucose,Whole Blood 280 mg/dL (75-99)
[2021-08-31] MEDS ORDERED: ACETAMINOPHEN TAB 325 MG TAB PO PRN (12:10)
[2021-08-31] MEDS: PANTOPRAZOLE 40 MG/10 ML VIAL IVP SCH ×2 (12:47→20:57)
[2021-08-31] MEDS: INSULIN ASPART (NovoLOG) 100 UNIT/ML VIAL SQ SCH ×3 (14:00→21:05)
--- NOTE | 2021-08-31 14:15 | P.CN ---
Psychiatric Consult - . Consult date: 08/31/21 Consult:: 08/31/21 13:50 IDENTIFYING DATA: This patient is a 35-year-old male, currently unemployed, single has no kids and currently lives with his mother. REASON FOR REFERRAL: Psychiatry was consulted for "depression" HISTORY OF PRESENT ILLNESS: The patient presented to the hospital yesterday earlier and was discharged with Tylenol 3 for pain. Patient return soon after and was found to have elevated lipase and amylase and also mildly elevated LFTs. Patient was found to have acute pancreatitis and was withdrawing from alcohol and admitted to the medical floors. Patient has a history of alcohol abuse and admissions. He was complaining of upper quadrant pain which was consistent and had no relieving factors. Patient's nurse claims a patient has been fairly cooperative and had elevated vitals and started Librium earlier. Nurse claims the patient has not been endorsing any suicidal thoughts. Patient was seen at the bedside and agreeable to seek senior writer. He is fairly concrete and had a constricted affect. He spoke about feeling mildly depressed and somewhat anxious. He claims that he is going through some withdrawals however is claiming that they're fairly mild at this time and has mild tremors. He states that his last drink was on Monday night and he came to the hospital because he was in a lot of pain and wanted to stop drinking. He states that the pain has mildly improved however still in his abdomen. He claims that alcohol has been affecting his relationships with his family and friends. He states that he mainly wants to isolate at home. He claims that he has had 2 DUIs in the past and has been to rehab once in the past at [place]. He will denies any, located withdrawals or seizures in the past. He states that his sleep has been poor approximately 3-4 hours and appetite is fair. . At this time patient denies any suicidal or homical ideations, intent or plan. Patient denies any auditory, visual hallucinations and denies any paranoia or delusions. Patients admits to using cigarettes daily and does marijuana troubles. PAST MEDICAL HISTORY: DM type 2, HTN Past Psych history: He was never in a psychiatric hospital . He was seen one time had the age of 15 by a mental health professional for depression. He has been on Zoloft in the past, Prozac and trazodone. He claims that he used to see a therapist at [facility] however stopped going several years ago. He states that he has history of depression and anxiety and alcohol use. He has no current psychiatrist that he follows up with. He was last seen on the medical floors for a consultation by Dr. Saenz on 02/12. Family history: He stated his mother, brother and a few other people in the family have a history of depression. He denied any history of suicide in the family. He stated his uncle and his grandfather has history of heavy alcoholism. He stated his brother has problems with drugs. Medical history he stated he has been diagnosed with diabetes type 2 very recently. Social history: He stated he grew up with his mother and stepfather. He stated he did not graduate from high school. He stated he works for a company that makes [employer] and has been working there for last 2 years however is currently unemployed. He lives with his mother in a house. He is currently single has no kids. Substance abuse history: He has been drinking heavily every day for last 10 years. Patient also admits using cigarettes and marijuana troubles as noted above. MENTAL STATUS EXAM: General Appearance: Patient appears to be stated age is overweight, alert, pleasant, and constricted. Patient appears to have fair hygiene and grooming wearing hospital gown with poor eye contact. Behavior: Patient is calmly lying in bed without any agitated behavior. [place] and constricted. Speech: Patient's speech is fluent and nonpressured. Soft tone Mood/Affect: Patient reports their mood is "a bit depressed and anxious", affect is congruent and constricted Suicidality/Homicidality: Patient denies having any suicidal or homicidal ideation intent or plan. Perceptions: Patient denies any visual hallucinations and denies any auditory hallucinations Though content/process: There is no evidence of any delusional thought content and thought process is linear and goal-directed. [place]. Poverty of content. Memory and concentration: AOX3, grossly intact for the purposes of this session. Can spell "WORLD" backwards Judgment and insight: poor IMPRESSIONS: Depressive disorder unspecified, rule out secondary to substance use A generalized anxiety disorder Alcohol use disorder, currently in withdrawal Cannabis use disorder mild Nicotine dependence PLAN: -At this time patient DOES NOT meet criteria for inpatient psychiatric admission. -Would recommend the following medication changes/additions: Housekeeping Coordinator spoke with patient about starting a SSRI have the patient does not want to begin this at this time and wants to wait and see. He is agreeable to try trazodone 50 mg daily at bedtime for insomnia/mood. Patient is also agreeable to start naltrexone 50 mg by mouth daily for alcohol cravings. Increased Librium to 20 mg 3 times a day for alcohol withdrawal. -CIWA protocol with PRN Ativan for alcohol withdrawal. Continue to monitor vital signs. -cargo station worker to provide patient with outpatient mental health/psychiatry resources for appropriate follow up upon discharge -Housekeeping Coordinator spoke with patient about substance abuse and the harmful effects on medical and mental health, patient verbally understood and agreed. -cargo station worker to provide patient substance use treatment resources including AA/NA meetings in the community. -Communicated plan to patient's nurse -Will continue to follow along -Please contact with any questions. 08/31/21 14:09
[2021-08-31 16:15] LABS: Chol/HDL Ratio 7.05 Ratio; LDL Cholesterol,Calculated 185.9 mg/dL (0.0-131.0)
--- NOTE | 2021-08-31 16:52 | P.HPIM ---
History of Present Illness H&P Date: 08/31/21 35 years oldCaucasian male patient of mine with past medical history of type 2 diabetes is, chronic alcohol use, depression comes in with acute epigastric pain associated with nausea and vomiting. Patient was here in the hospital a day prior with the mildly elevated lipase and acute chest pain. Troponin was negative and patient had mild pancreatitis patient was asked to follow in the clinic. Since patient's symptoms got worse and patient decided to come to the emergency room. Patient endorses significant nausea and vomiting. His last alcohol use was 3 days prior. Patient has not been seen in the clinic for reports 6 months. He has not followed with [facility] for past 6 months. Patient is unable to work due to his alcoholism. He has stopped his antidepressant. He drinks 1/5 of liquor every day. Gallbladder ultrasound was ordered and that was negative for gallstones or cholecystitis labs were reviewed patient has elevated lipase and amylase. Liver enzymes are elevated at baseline. Mild leukocytosis is noted. Patient was given 1 L of bolus initially 100 mL per hour of IV fluid s. Since patient was unable to tolerate any oral liquids patient was admitted to the hospital patient was noted to have high blood pressure on his recent vital check. Patient placed on Cipro protocol Librium initiated 10 mg 3 times a day. ROS Constitutional: Denies chills, Denies fever, Denies lethargy, Denies malaise, Denies poor appetite, Denies weakness, Denies weight loss Eyes: denies decreased vision, denies diplopia, denies discharge, denies pain Ears: deny: decreased hearing Ears, nose, mouth and throat: Denies dental pain, Denies headache, Denies nasal discharge, Denies nose pain Cardiovascular: Denies chest pain, Denies decreased exercise tolerance, Denies edema, Denies high blood pressure, Denies irregular heart beat, Denies palpitations, Denies paroxysmal nocturnal dyspnea, Denies rapid heart beat, Denies shortness of breath Respiratory: Denies congestion, Denies cough, Denies cough with sputum, Denies dyspnea, Denies home oxygen, Denies wheezing Gastrointestinal: Endorses abdominal pain, Denies change in bowel habits, Denies coffee ground emesis, Denies early satiety, Denies excessive gas, Denies heartburn, Denies hematemesis, Denies hematochezia, Denies loss of appetite, endorses nausea and vomiting Genitourinary: Denies dysuria, Denies flank pain, Denies kidney stones, Denies menorrhagia, Denies urgency, Denies urinary frequency Musculoskeletal: Denies gait dysfunction, Denies limitation of motion, Denies morning stiffness, Denies muscle cramps Integumentary: Denies rash, Denies wounds, Denies brittle nails, Denies change in hair/nails, Denies darkening of skin Neurological: Denies balance difficulties, Denies change in speech, Denies double vision, Denies gait dysfunction, Denies loss of vision, Denies motor disturbance, Denies numbness, Denies paralysis, Denies paresthesias, Denies seizures Psychiatric: Denies anxiety, Denies depression Endocrine: Denies excessive sweating, Denies excessive thirst, Denies high blood sugars, Denies palpitations Hematologic/Lymphatic: Denies easy bruising, Denies lymphadenopathy Social history Smokes half pack a day since he was 17 Use of edible marijuana Drinks 1/5 of vodka every day Family history Grandmother had eye cancer Mother has diabetes and atrial fibrillation Father has diabetes Patient has 3 half-brothers. One unknown cause Physical exam - Constitutional General appearance: cooperative, no acute distress, obese - EENT Eyes: anicteric sclerae, PERRLA, normal appearance ENT: hearing grossly normal - Neck Neck: no lymphadenopathy, normal ROM, no other, no rigidity, no stridor, no thyromegaly - Respiratory Respiratory: bilateral: CTA, negative: diminished, dullness, rales, rhonchi - Cardiovascular Rhythm: regular Heart sounds: normal: S1, S2 Abnormal Heart Sounds: no systolic murmur, no diastolic murmur, no rub, no S3 Gallop, no S4 Gallop, no click, no other - Gastrointestinal General gastrointestinal: normal bowel sounds, soft tender in the epigastric - Integumentary Integumentary: no rash - Neurologic Neurologic no gross motor deficit - Musculoskeletal Musculoskeletal: gait normal, strength equal bilaterally - Psychiatric Psychiatric: A&O x's 3, appropriate affect Assessment and plan Acute pancreatitis secondary to alcoholism Nothing by mouth 2 L IV bolus of normal saline Normal saline to be continued at 1 50 mL per hour Pain control with IV Dilaudid and IV morphine [place] initiated at [place] 01/25/2025 every 6 hours Gallbladder ultrasound negative for gallstones Alcohol abuse Last alcohol drink 4 days ago Librium increased to 20 mg 3 times a day by psychiatrist Patient initiated on naltrexone 50 mg daily Alcohol withdrawal protocol initiated continue thiamine 100 mg daily Continue multivitamin daily Acute gastritis secondary to alcoholism Protonix 40 mg IV twice a day Acute transaminitis Secondary to alcoholism Repeat CMP tomorrow Depression Psychiatrist consulted Initiated on trazodone 50 mg daily Patient to follow with [facility] as outpatient Tobacco use and abuse Patient counseled on tobacco cessation DVT prophylaxis with heparin every 12 Disposition patient to stay in the hospital for at least 1-2 inpatient nights for stabilization Past Medical History Past Medical History: Diabetes Mellitus, Eye Disorder, Hypertension, Liver D isease Additional Past Medical History / Comment(s): ETOH abuse with withdrawal, alcoholic hepatitis, pancreatitis, NIDDM type II, neuropathy bilateral feet/toes, L eye vision blurry at times. History of Any Multi-Drug Resistant Organisms: None Reported Past Surgical History: No Surgical Hx Reported Additional Past Surgical History / Comment(s): Pt states he has never had surgery. Past Anesthesia/Blood Transfusion Reactions: Unable to Obtain Additional Past Anesthesia/Blood Transfusion Reaction / Comment(s): Pt has never had surgery. Smoking Status: Current every day smoker - Past Family History Father Family Medical History: Diabetes Mellitus Mother Family Medical History: Diabetes Mellitus Family Family Medical History: No Reported History Medications and Allergies Home Medications Medication Instructions Recorded Confirmed Type metFORMIN HCL [metFORMIN HCL ER] 750 mg PO BID 04/28/21 08/30/21 History sitaGLIPtin [Januvia] 100 mg PO DAILY 04/28/21 08/30/21 History Acetaminophen-Codeine 300-30mg 1 tab PO DIRECTED 08/30/21 08/30/21 History [Tylenol w/codeine #3] Allergies Allergy/AdvReac Type Severity Reaction Status Date / Time No Known Allergies Allergy Verified 08/30/21 23:22 Physical Exam Vitals: Vital Signs Temp Pulse Pulse Resp BP BP Pulse Ox 08/31/21 07:35 98.1 F 107 H 18 161/103 95 08/31/21 07:09 98 F 101 H 18 154/106 94 L 08/31/21 06:18 102 H 18 166/110 96 08/31/21 05:15 98 18 138/95 95 08/31/21 03:43 93 18 149/109 98 08/31/21 03:06 98 18 195/129 97 08/31/21 02:28 84 18 161/107 95 08/31/21 00:42 90 18 165/117 95 08/30/21 23:08 105 H 18 190/106 96 08/30/21 21:30 98.0 F 121 H 18 180/131 98 Intake and Output 08/30/21 08/31/21 08/31/21 22:59 06:59 14:59 Other: Weight 95.254 kg 95.254 kg Results CBC & Chem 7: 08/31/21 05:45 08/31/21 05:45 Labs: Abnormal Lab Results - Last 24 Hours (Table) 08/30/21 08/30/21 08/30/21 Range/Units 22:48 22:48 23:38 WBC 12.1 H (3.8-10.6) k/uL Neutrophils # 9.5 H (1.3-7.7) k/uL Sodium 135 L (137-145) mmol/L Carbon Dioxide 20 L (22-30) mmol/L BUN (9-20) mg/dL Creatinine 0.62 L (0.66-1.25) mg/dL Glucose 298 H (74-99) mg/dL POC Glucose (mg/dL) 256 H (75-99) mg/dL AST 93 H (17-59) U/L ALT 156 H (4-49) U/L Amylase 253 H (30-110) U/L Lipase 3933 H (23-300) U/L 08/31/21 08/31/21 Range/Units 05:45 05:45 WBC 13.5 H (3.8-10.6) k/uL Neutrophils # 10.3 H (1.3-7.7) k/uL Sodium (137-145) mmol/L Carbon Dioxide (22-30) mmol/L BUN 6 L (9-20) mg/dL Creatinine (0.66-1.25) mg/dL Glucose 251 H (74-99) mg/dL POC Glucose (mg/dL) (75-99) mg/dL AST 72 H (17-59) U/L ALT 142 H (4-49) U/L Amylase (30-110) U/L Lipase 9112 H (23-300) U/L Thrombosis Risk Factor Assmnt - Choose All That Apply Any of the Below Risk Factors Present?: Yes Each Factor Represents 1 point: Obesity (BMI >25) Other Risk Factors: No Other congenital or acquired thrombophilia - If yes, enter type in comment: No Thrombosis Risk Factor Assessment Total Risk Factor Score: 1 Thrombosis Risk Factor Assessment Level: Low Risk
[2021-08-31 17:19] LABS: Glucose,Whole Blood 195 mg/dL (75-99)
[2021-08-31] MEDS: traZODone HCL 50 MG TAB PO SCH (20:56)
[2021-08-31 21:11] LABS: Glucose,Whole Blood 161 mg/dL (75-99)
[2021-08-31] MEDS ORDERED: MORPHINE SULFATE 4 MG/ML SYRINGE ONE (23:50)
[2021-09-01] MEDS ORDERED: SODIUM CHLORIDE 0.9% 1,000 ML BAG ONE (01:00)
[2021-09-01] MEDS ORDERED: HYDROmorphone 1 MG/ML 1 ML SYRINGE ONE (01:00)
[2021-09-01] MEDS: SODIUM CHLORIDE 0.9% 1,000 ML IV SCH ×4 (03:01→20:06)
[2021-09-01] MEDS: MORPHINE SULFATE 4 MG/ML SYRINGE IV PRN ×2 (04:15→08:35)
[2021-09-01] MEDS: HYDROmorphone 1 MG/ML 1 ML SYRINGE IVP PRN ×3 (05:29→17:25)
[2021-09-01 07:31] LABS: Glucose,Whole Blood 158 mg/dL (75-99)
[2021-09-01] MEDS: NICOTINE 21MG/24HR PATCH TRANSDERM SCH (08:39)
[2021-09-01] MEDS: ENOXAPARIN 40 MG/0.4 ML SYRINGE SQ SCH (08:40)
[2021-09-01] MEDS: PANTOPRAZOLE 40 MG/10 ML VIAL IVP SCH ×2 (08:40→20:02)
[2021-09-01] MEDS: INSULIN ASPART (NovoLOG) 100 UNIT/ML VIAL SQ SCH ×4 (08:41→20:48)
[2021-09-01] MEDS: THIAMINE 100 MG TAB PO SCH ×2 (08:42→17:25)
[2021-09-01] MEDS ORDERED: NALTREXONE HCL 50 MG TAB PO SCH (09:00)
[2021-09-01] MEDS ORDERED: ENALAPRILAT 1.25 MG/ML 1 ML VIAL IVP PRN (10:13)
--- NOTE | 2021-09-01 11:05 | P.PN ---
Progress Note - Text Progress Note Date: 09/01/21 Interval History: Patient was seen today for psychiatric follow-up regarding his depression and anxiety and alcohol withdrawal. Patient was started on trazodone and naltrexone and also had his Librium increased yesterday. Patient's last three CIWA scores have been 1,1 and 1 respectively. Patient has been receiving morphine and Dilaudid for pain control. Patient was seen today resting at the bedside and claims that he is doing mildly better today in terms of his mood and anxiety. He is denying any current withdrawal symptoms however it does appear to be tachycardic. He states that he slept a bit better last night and wants remain on the same dose of trazodone. He continues to state that she does not want to be started on any antidepressant medication at this time as he had a bad experience with Prozac and Zoloft in the past. He believes that a lot of his depression might be related to his alcohol use. He claims that he feels more motivated to stop drinking however continues to refuse rehab. At this time patient denies any suicidal or homical ideations, intent or plan. Patient denies any auditory, visual hallucinations and denies any paranoia or delusions. Patient denies any side effects from the medications and has been compliant with meds. Mental Status Exam: General Appearance: Patient appears to be stated age is overweight, alert, pleasant, and constricted. Patient appears to have fair hygiene and grooming wearing hospital gown with improving eye contact. Behavior: Patient is calmly lying in bed without any agitated behavior. [place] Speech: Patient's speech is fluent and nonpressured. Mood/Affect: Patient reports their mood is "a bit better today", affect is congruent and constricted Suicidality/Homicidality: Patient denies having any suicidal or homicidal ideation intent or plan. Perceptions: Patient denies any visual hallucinations and denies any auditory hallucinations Though content/process: There is no evidence of any delusional thought content and thought process is linear and goal-directed. [place]. Memory and concentration: AOX3, grossly intact for the purposes of this session Judgment and insight: improving mildly IMPRESSIONS: Depressive disorder unspecified, rule out secondary to substance use A generalized anxiety disorder Alcohol use disorder, currently in withdrawal Cannabis use disorder mild Nicotine dependence PLAN: -At this time patient DOES NOT meet criteria for inpatient psychiatric admission. -Would recommend the following medication changes/additions: patient continues to not want to be started on an SSRI and the patient wants to wait and see. continue with trazodone 50 mg daily at bedtime for insomnia/mood. Patient is also agreeable to start naltrexone 50 mg by mouth daily for alcohol cravings HOWEVER as patient is still receiving opiates, will recommend waiitng until after discharge to start this mediation due to the drug-drug interaction of naltrexone with opioids. continue with Librium 20 mg 3 times a day for alcohol withdrawal and considering slowly tapering off within the next few days. -CIWA protocol with PRN Ativan for alcohol withdrawal. Continue to monitor vital signs. -slag production worker to provide patient with outpatient mental health/psychiatry resources for appropriate follow up upon discharge -Head Wood Grinder spoke with patient about substance abuse and the harmful effects on medical and mental health, patient verbally understood and agreed. -slag production worker to provide patient substance use treatment resources including AA/NA meetings in the community. PAtient is refusing rehab at this time. -Communicated plan to patient's nurse -At this time psychiatry will sign off. -Please contact with any questions.
[2021-09-01] MEDS ORDERED: KETOROLAC 30 MG/ML 1 ML VIAL IVP STA (11:14)
[2021-09-01 11:40] VITALS: BMI 29.2
[2021-09-01 12:04] LABS: Glucose,Whole Blood 148 mg/dL (75-99)
[2021-09-01] MEDS: HYDROcodone/APAP 5-325MG 1 EACH TAB PO PRN ×2 (14:05→20:01)
--- NOTE | 2021-09-01 14:21 | P.PN ---
Subjective Progress Note Date: 09/01/21 35 years oldCaucasian male patient of [place] with past medical history of type 2 diabetes is, chronic alcohol use, depression comes in with acute epigastric pain associated with nausea and vomiting. Patient was here in the hospital a day prior with the mildly elevated lipase and acute chest pain. Troponin was negative and patient had mild pancreatitis patient was asked to follow in the clinic. Since patient's symptoms got worse and patient decided to come to the emergency room. Patient endorses significant nausea and vomiting. His last alcohol use was 3 days prior. Patient has not been seen in the clinic for reports 6 months. He has not followed with [facility] for past 6 months. Patient is unable to work due to his alcoholism. He has stopped his antidepressant. He drinks 1/5 of liquor every day. Gallbladder ultrasound was ordered and that was negative for gallstones or cholecystitis labs were reviewed patient has elevated lipase and amylase. Liver enzymes are elevated at baseline. Mild leukocytosis is noted. Patient was given 1 L of bolus initially 100 mL per hour of IV fluids. Since patient was unable to tolerate any oral liquids patient was admitted to the hospital patient was noted to have high blood pressure on his recent vital check. Patient placed on Cipro protocol Librium initiated 10 mg 3 times a day. 09/01: T-max 100.0. Heart rate 100, blood pressure 161/101, pulse ox 94% on room air. Hydralazine 50 mg 3 times daily oral and IV Vasotec added. Blood sugars are running between 158 and 195. Triglycerides 319, cholesterol 291, HDL 41. Patient has been seen by psychiatry and recommended starting trazodone 50 mg daily at bedtime, naltrexone 50 mg daily for alcohol cravings and increased Librium to 20 mg 3 times daily. Social work to provide patient with substance abuse information. Will remain nothing by mouth at this time, lab work ordered for today and tomorrow. Review Of Systems Constitutional: No fever, no chills, no night sweats. No weight change. No weakness, fatigue or lethargy. No daytime sleepiness. EENT: No headache. No blurred vision or double vision, no loss of vision. No loss of Hearing, no ringing in the ears, no dizziness. No nasal drainage or congestion. No epistaxis. No sore throat. Lungs: No shortness of breath, cough, no sputum production. No wheezing. Cardiovascular: No chest pain, no lower extremity edema. No palpitations. No paroxysmal nocturnal dyspnea. No orthopnea. No lightheadedness or dizziness. No syncopal episodes. Abdominal: Reports abdominal pain. No nausea, vomiting. No diarrhea. No constipation. No bloody or tarry stools reports loss of appetite. Genitourinary: No dysuria, increased frequency, urgency. No urinary retention. Musculoskeletal: No myalgias. No muscle weakness, no gait dysfunction, no frequent falls. No back pain. No neck pain. Integumentary: No wounds, no lesions. No rash or pruritus. No unusual bruising. No change in hair or nails. Neurologic: No aphasia. No facial droop. No change in mentation. No head injury. No headache. No paralysis. No paresthesia. Psychiatric: No depression. No anxiety. No mood swings. Endocrine: No abnormal blood sugars. No weight change. No excessive sweating or thirst. No cold intolerance. Physical Examination Gen: This is a 35-year-old obese male. He is resting in bed appears to be comfortable and in no acute distress. HEENT: Head is atraumatic, normocephalic. Pupils equal, round. Sclerae is anicteric. NECK: Supple. No JVD. No lymphadenopathy. No thyromegaly. LUNGS: Clear to auscultation. No wheezes or rhonchi. No intercostal retractions. HEART: Regular rate and rhythm. No murmur. ABDOMEN: Soft. Bowel sounds are present. No masses. Epigastric tenderness. EXTREMITIES: No pedal edema. No calf tenderness. NEUROLOGICAL: Patient is awake, alert and oriented x3. Cranial nerves 2 through 12 are grossly intact. Assessment and plan Acute pancreatitis secondary to alcoholism. Nothing by mouth, 2 L IV bolus of normal saline, Normal saline to be continued at 100 mL per hour. Pain control with IV Dilaudid and IV morphine. [place] initiated at [place] 5/325 every 6 hours. Gallbladder ultrasound negative for gallstones Alcohol abuse Last alcohol drink 4 days ago. Librium increased to 20 mg 3 times a day by psychiatrist. Patient initiated on naltrexone 50 mg daily. Alcohol withdrawal protocol initiated continue thiamine 100 mg daily. Continue multivitamin daily Acute gastritis secondary to alcoholism. Protonix 40 mg IV twice a day Acute transaminitis Secondary to alcoholism. Repeat CMP tomorrow Depression. Psychiatrist consulted, Initiated on trazodone 50 mg daily, Patient to follow with [facility] as outpatient Tobacco use and abuse. Patient counseled on tobacco cessation DVT prophylaxis with heparin every 12 Impression and plan of care have been directed as dictated by the signing physician. Alejandra Temple nurse practitioner acting as scribe for signing physician. Objective - Vital Signs Vital signs: Vital Signs Temp 100 F H 09/01/21 04:40 Pulse 100 09/01/21 04:40 Resp 18 09/01/21 04:40 BP 161/101 09/01/21 04:40 Pulse Ox 94 L 09/01/21 04:40 Intake & Output 08/31/21 09/01/21 09/01/21 18:59 06:59 18:59 Intake Total 0 Balance 0 Weight 95.254 kg Intake: Oral 0 Other: Voiding Method Toilet Toilet # Voids 1 - Labs CBC & Chem 7: 08/31/21 05:45 08/31/21 05:45 Labs: Abnormal Lab Results - Last 24 Hours (Table) 08/31/21 08/31/21 08/31/21 Range/Units 05:45 05:45 11:37 POC Glucose (mg/dL) 280 H (75-99) mg/dL Hemoglobin A1c 11.8 H (4.0-6.0) % Triglycerides 319.00 H (0.00-149.00) mg/dL Cholesterol 291.00 H (0.00-200.00) mg/dL LDL Cholesterol, Calc 185.9 H (0.0-131.0) mg/dL VLDL Cholesterol, Calc 63.80 H (5.00-40.00) mg/dL 08/31/21 08/31/21 09/01/21 Range/Units 17:14 20:57 07:27 POC Glucose (mg/dL) 195 H 161 H 158 H (75-99) mg/dL Hemoglobin A1c (4.0-6.0) % Triglycerides (0.00-149.00) mg/dL Cholesterol (0.00-200.00) mg/dL LDL Cholesterol, Calc (0.0-131.0) mg/dL VLDL Cholesterol, Calc (5.00-40.00) mg/dL
[2021-09-01] MEDS: hydrALAZINE HCL 50 MG TAB PO SCH ×3 (14:43→21:20)
[2021-09-01 17:17] LABS: Glucose,Whole Blood 120 mg/dL (75-99)
[2021-09-01] MEDS: traZODone HCL 50 MG TAB PO SCH (20:02)
[2021-09-01 20:37] LABS: Glucose,Whole Blood 134 mg/dL (75-99)
[2021-09-02] MEDS: HYDROmorphone 1 MG/ML 1 ML SYRINGE IVP PRN ×2 (00:24→06:18)
[2021-09-02] MEDS: HYDROcodone/APAP 5-325MG 1 EACH TAB PO PRN (04:13)
[2021-09-02] MEDS: SODIUM CHLORIDE 0.9% 1,000 ML IV SCH ×2 (06:19→16:39)
[2021-09-02 06:30] LABS: HCT 41.3 % (39.0-53.0); MCH 33.2 pg (25.0-35.0); MCHC 33.4 g/dL (31.0-37.0); Mean Platelet Volume 8.1; Platelet Count 166 k/uL (150-450); RBC 4.15 m/uL (4.30-5.90); RDW 13.3 % (11.5-15.5); WBC 10.9 k/uL (3.8-10.6)
[2021-09-02 06:47] LABS: HGB 13.8 gm/dL (13.0-17.5); MCV 99.5 fL (80.0-100.0)
[2021-09-02 07:05] LABS: Glucose,Whole Blood 138 mg/dL (75-99)
[2021-09-02] MEDS: PANTOPRAZOLE 40 MG/10 ML VIAL IVP SCH ×2 (08:26→21:48)
[2021-09-02] MEDS: THIAMINE 100 MG TAB PO SCH ×2 (08:27→16:38)
[2021-09-02] MEDS: ENOXAPARIN 40 MG/0.4 ML SYRINGE SQ SCH (08:27)
[2021-09-02] MEDS: INSULIN ASPART (NovoLOG) 100 UNIT/ML VIAL SQ SCH ×4 (08:27→21:48)
[2021-09-02] MEDS: hydrALAZINE HCL 50 MG TAB PO SCH ×3 (08:27→21:47)
[2021-09-02] MEDS: NICOTINE 21MG/24HR PATCH TRANSDERM SCH (08:27)
[2021-09-02 09:48] LABS: African American GFR (CKD) 143.7 (60.0-200.0); Albumin 3.7 g/dL (3.8-4.9); Albumin/Globulin Ratio 1.95 (1.60-3.17); Anion Gap 15.4 mmol/L (10.00-18.00); BUN/Creat Ratio 5.57 Ratio (12.00-20.00); Blood Urea Nitrogen 3.9 mg/dL (9.0-27.0); Carbon Dioxide 18.6 mmol/L (20.0-27.5); Globulin 1.9 g/dL (1.6-3.3); Potassium 3.7 mmol/L (3.5-5.5); Total Bilirubin 0.5 mg/dL (0.30-1.20); Total Protein 5.6 g/dL (6.2-8.2)
[2021-09-02 12:35] LABS: Glucose,Whole Blood 170 mg/dL (75-99)
[2021-09-02 13:15] VITALS: RESP 16
[2021-09-02] MEDS: KETOROLAC 30 MG/ML 1 ML VIAL IVP PRN (13:26)
--- NOTE | 2021-09-02 14:53 | P.PN ---
Subjective Progress Note Date: 09/02/21 35 years oldCaucasian male patient of [place] with past medical history of type 2 diabetes is, chronic alcohol use, depression comes in with acute epigastric pain associated with nausea and vomiting. Patient was here in the hospital a day prior with the mildly elevated lipase and acute chest pain. Troponin was negative and patient had mild pancreatitis patient was asked to follow in the clinic. Since patient's symptoms got worse and patient decided to come to the emergency room. Patient endorses significant nausea and vomiting. His last alcohol use was 3 days prior. Patient has not been seen in the clinic for reports 6 months. He has not followed with [facility] for past 6 months. Patient is unable to work due to his alcoholism. He has stopped his antidepressant. He drinks 1/5 of liquor every day. Gallbladder ultrasound was ordered and that was negative for gallstones or cholecystitis labs were reviewed patient has elevated lipase and amylase. Liver enzymes are elevated at baseline. Mild leukocytosis is noted. Patient was given 1 L of bolus initially 100 mL per hour of IV fluids. Since patient was unable to tolerate any oral liquids patient was admitted to the hospital patient was noted to have high blood pressure on his recent vital check. Patient placed on Cipro protocol Librium initiated 10 mg 3 times a day. 09/01: T-max 100.0. Heart rate 100, blood pressure 161/101, pulse ox 94% on room air. Hydralazine 50 mg 3 times daily oral and IV Vasotec added. Blood sugars are running between 158 and 195. Triglycerides 319, cholesterol 291, HDL 41. Patient has been seen by psychiatry and recommended starting trazodone 50 mg daily at bedtime, naltrexone 50 mg daily for alcohol cravings and increased Librium to 20 mg 3 times daily. Social work to provide patient with substance abuse information. Will remain nothing by mouth at this time, lab work ordered for today and tomorrow. 09/02: Patient remains nothing by mouth. Repeat blood work reveals WBC 10.9, hemoglobin 13.8 and platelet count 166. Blood sugars are running between 120 and 148. Lipase is 854. Blood pressure is improved at 134/78, pulse ox 96% on room air. Patient has been afebrile, pulse ox 96% on room air. Patient has been reevaluated by psychiatry and would like to start naltrexone 50 mg daily for alcohol cravings over patient is receiving opiates. The morphine was discontinued last evening, we will discontinue IV Dilaudid and continue [place] every 6 hours and continued on Toradol. Diet will be advanced to clear liquid. Patient states he is passing a little bit of gas. No bowel movement. Continue Librium 20 mg 3 times daily and consider slowly tapering off within the next few days. Patient is also continued on trazodone 50 mg daily at bedtime. Review Of Systems Constitutional: No fever, no chills, no night sweats. No weight change. No weakness, fatigue or lethargy. No daytime sleepiness. EENT: No headache. No blurred vision or double vision, no loss of vision. No loss of Hearing, no ringing in the ears, no dizziness. No nasal drainage or congestion. No epistaxis. No sore throat. Lungs: No shortness of breath, cough, no sputum production. No wheezing. Cardiovascular: No chest pain, no lower extremity edema. No palpitations. No paroxysmal nocturnal dyspnea. No orthopnea. No lightheadedness or dizziness. No syncopal episodes. Abdominal: Reports abdominal pain. No nausea, vomiting. No diarrhea. No constipation. No bloody or tarry stools reports loss of appetite. Genitourinary: No dysuria, increased frequency, urgency. No urinary retention. Musculoskeletal: No myalgias. No muscle weakness, no gait dysfunction, no frequent falls. No back pain. No neck pain. Integumentary: No wounds, no lesions. No rash or pruritus. No unusual bruising. No change in hair or nails. Neurologic: No aphasia. No facial droop. No change in mentation. No head injury. No headache. No paralysis. No paresthesia. Psychiatric: Reports depression. Reports anxiety. No mood swings. Endocrine: No abnormal blood sugars. No weight change. No excessive sweating or thirst. No cold intolerance. Physical Examination Gen: This is a 35-year-old obese male. He is resting in bed appears to be comfortable and in no acute distress. HEENT: Head is atraumatic, normocephalic. Pupils equal, round. Sclerae is anicteric. NECK: Supple. No JVD. No lymphadenopathy. No thyromegaly. LUNGS: Clear to auscultation. No wheezes or rhonchi. No intercostal retractions. HEART: Regular rate and rhythm. No murmur. ABDOMEN: Soft. Bowel sounds are present. No masses. Epigastric tenderness. EXTREMITIES: No pedal edema. No calf tenderness. Fields pedis NEUROLOGICAL: Patient is awake, alert and oriented x3. Cranial nerves 2 through 12 are grossly intact. Assessment and plan Acute pancreatitis secondary to alcoholism. Advance diet to clear liquids, continue IV fluids at 100 mL per hour, morphine and Dilaudid both discontinued, continue [place] 5/325 mg every 6 hours and Toradol IV. Alcohol abuse. Last alcohol drink 4 days ago. Librium increased to 20 mg 3 times a day by psychiatrist. Patient initiated on naltrexone 50 mg daily. Alcohol withdrawal protocol initiated continue thiamine 100 mg daily. Continue multivitamin daily Acute gastritis secondary to alcoholism. Protonix 40 mg IV twice a day Acute transaminitis Secondary to alcoholism. Recurrent Depression. Psychiatrist consulted, Initiated on trazodone 50 mg daily, Patient to follow with [facility] as outpatient Tobacco use and abuse. Patient counseled on tobacco cessation DVT prophylaxis with heparin every 12 Discharge Plan Home Impression and plan of care have been directed as dictated by the signing kristofer lópez. Alejandra Temple nurse practitioner acting as scribe for signing physician. Objective - Vital Signs Vital signs: Vital Signs Temp 99.7 F H 09/02/21 04:16 Pulse 103 H 09/02/21 08:35 Resp 18 09/02/21 04:16 BP 134/78 09/02/21 08:35 Pulse Ox 96 09/02/21 04:16 Intake & Output 09/01/21 09/02/21 09/02/21 18:59 06:59 18:59 Intake Total 240 1200 Balance 240 1200 Weight 95.254 kg Intake: Intake, IV Titration 1200 Amount Sodium Chloride 0.9% 1, 1200 000 ml @ 100 mls/hr IV . Q10H [facility] Rx#:[id number] Oral 240 Other: Voiding Method Toilet Toilet # Voids 3 4 - Labs CBC & Chem 7: 09/02/21 05:43 09/02/21 05:43 Labs: Abnormal Lab Results - Last 24 Hours (Table) 09/01/21 09/01/21 09/01/21 Range/Units 11:59 17:10 20:35 WBC (3.8-10.6) k/uL RBC (4.30-5.90) m/uL POC Glucose (mg/dL) 148 H 120 H 134 H (75-99) mg/dL 09/02/21 09/02/21 Range/Units 05:43 07:04 WBC 10.9 H (3.8-10.6) k/uL RBC 4.15 L (4.30-5.90) m/uL POC Glucose (mg/dL) 138 H (75-99) mg/dL
[2021-09-02 17:50] LABS: Glucose,Whole Blood 163 mg/dL (75-99)
[2021-09-02 20:37] LABS: Glucose,Whole Blood 280 mg/dL (75-99)
[2021-09-02] MEDS: traZODone HCL 50 MG TAB PO SCH (21:47)
[2021-09-03] MEDS: KETOROLAC 30 MG/ML 1 ML VIAL IVP PRN (01:39)
[2021-09-03 04:32] VITALS: TEMP 98.4
[2021-09-03] MEDS: SODIUM CHLORIDE 0.9% 1,000 ML IV SCH ×2 (04:58→13:51)
[2021-09-03] MEDS: hydrALAZINE HCL 50 MG TAB PO SCH (07:25)
[2021-09-03] MEDS: ENOXAPARIN 40 MG/0.4 ML SYRINGE SQ SCH ×2 (07:25→07:36)
[2021-09-03] MEDS: PANTOPRAZOLE 40 MG/10 ML VIAL IVP SCH (07:25)
[2021-09-03] MEDS: NICOTINE 21MG/24HR PATCH TRANSDERM SCH (07:25)
[2021-09-03] MEDS: THIAMINE 100 MG TAB PO SCH (07:25)
[2021-09-03] MEDS: HYDROcodone/APAP 5-325MG 1 EACH TAB PO PRN (07:30)
[2021-09-03 07:33] LABS: Glucose,Whole Blood 157 mg/dL (75-99)
[2021-09-03] MEDS: INSULIN ASPART (NovoLOG) 100 UNIT/ML VIAL SQ SCH ×2 (07:42→13:51)
[2021-09-03 07:51] VITALS: BP 149/98
[2021-09-03] MEDS ORDERED: LINAGLIPTIN 5 MG TABLET PO SCH (10:00)
[2021-09-03] MEDS ORDERED: metFORMIN 500 MG TAB PO SCH (10:00)
[2021-09-03 10:06] VITALS: PULSE 90
--- NOTE | 2021-09-03 11:39 | P.DS ---
Providers Date of admission: 08/30/21 23:45 Expected date of discharge: 09/03/21 Attending physician: Katherine Gan MD Consults: 08/31/21 12:07 Consult Physician Routine Consulting Provider: Psychiatry - [facility] Psychiatry Consult Reason/Comments: Depression Do you want consulting provider notified?: Yes Primary care physician: Katherine Gan MD Hospital Course: 35 years oldCaucasian male patient of mine with past medical history of type 2 diabetes is, chronic alcohol use, depression comes in with acute epigastric pain associated with nausea and vomiting. Patient was here in the hospital a day prior with the mildly elevated lipase and acute chest pain. Troponin was negative and patient had mild pancreatitis patient was asked to follow in the clinic. Since patient's symptoms got worse and patient decided to come to the emergency room. Patient endorses significant nausea and vomiting. His last alcohol use was 3 days prior. Patient has not been seen in the clinic for reports 6 months. He has not followed with [facility] for past 6 months. Patient is unable to work due to his alcoholism. He has stopped his antidepressant. He drinks 1/5 of liquor every day. Gallbladder ultrasound was ordered and that was negative for gallstones or cholecystitis labs were reviewed patient has elevated lipase and amylase. Liver enzymes are elevated at baseline. Mild leukocytosis is noted. Patient was given 1 L of bolus initially 100 mL per hour of IV fluids. Since patient was unable to tolerate any oral liquids patient was admitted to the hospital patient was noted to have high blood pressure on his recent vital check. Patient placed on Cipro protocol Librium initiated 10 mg 3 times a day. 09/01: T-max 100.0. Heart rate 100, blood pressure 161/101, pulse ox 94% on room air. Hydralazine 50 mg 3 times daily oral and IV Vasotec added. Blood sugars are running between 158 and 195. Triglycerides 319, cholesterol 291, HDL 41. Patient has been seen by psychiatry and recommended starting trazodone 50 mg daily at bedtime, naltrexone 50 mg daily for alcohol cravings and increased Librium to 20 mg 3 times daily. Social work to provide patient with substance abuse information. Will remain nothing by mouth at this time, lab work ordered for today and tomorrow. 09/02: Patient remains nothing by mouth. Repeat blood work reveals WBC 10.9, hemoglobin 13.8 and platelet count 166. Blood sugars are running between 120 and 148. Lipase is 854. Blood pressure is improved at 134/78, pulse ox 96% on room air. Patient has been afebrile, pulse ox 96% on room air. Patient has been reevaluated by psychiatry and would like to start naltrexone 50 mg daily for alcohol cravings over patient is receiving opiates. The morphine was discontinued last evening, we will discontinue IV Dilaudid and continue [place] every 6 hours and continued on Toradol. Diet will be advanced to clear liquid. Patient states he is passing a little bit of gas. No bowel movement. Continue Librium 20 mg 3 times daily and consider slowly tapering off within the next few days. Patient is also continued on trazodone 50 mg daily at bedtime. 09/03: Patient is dressed and ready for discharge. He is anxious to go home today. No nausea or vomiting. Abdominal pain is significantly improved. Blood sugars have been elevated and patient will be started back on Januvia and metformin. Diet will be advanced to full liquids. Patient plans to stop all alcohol intake at discharge. His abdomen is now a little sore. He didn't tolerate the clear liquid diet and diet will be advanced. Patient has been advised to start full liquids at home and advance very slowly. Patient is also been advised to follow up with community mental health and other resources regarding alcohol abuse. Patient will be discharged home today in stable condition. Discharge Diagnoses Acute pancreatitis secondary to alcoholism. Alcohol abuse. Last alcohol drink 4 days ago. Acute gastritis secondary to alcoholism. Acute transaminitis Secondary to alcoholism. Recurrent Depression. Tobacco use and abuse. Discharge Plan Home Greater than 35 minutes was utilized and coordinating patient's discharge. Impression and plan of care have been directed as dictated by the signing physician. Alejandra Temple nurse practitioner acting as scribe for signing kristofer lópez. Patient Condition at Discharge: Stable Plan - Discharge Summary Discharge Rx Participant: No New Discharge Prescriptions: New hydrALAZINE HCL [Apresoline] 50 mg PO TID #90 tab Nicotine 21Mg/24Hr Patch [Habitrol] 1 patch TRANSDERM DAILY #30 patch traZODone HCL [Desyrel] 50 mg PO HS #30 tab Ibuprofen 600 mg PO Q8H PRN #60 tab PRN Reason: Pain chlordiazePOXIDE HCl [Librium] 5 mg PO TID 3 Days #9 cap Pantoprazole [Protonix] 40 mg PO DAILY #30 tab Thiamine [Vitamin B-1] 100 mg PO BID-W/MEALS #0 tab Continue sitaGLIPtin [Januvia] 100 mg PO DAILY metFORMIN HCL [Glucophage XR] 750 mg PO BID Discontinued Acetaminophen-Codeine 300-30mg [Tylenol w/codeine #3] 1 tab PO DIRECTED Discharge Medication List metFORMIN HCL [Glucophage XR] 750 mg PO BID 04/28/21 [History] sitaGLIPtin [Januvia] 100 mg PO DAILY 04/28/21 [History] Ibuprofen 600 mg PO Q8H PRN #60 tab 09/03/21 [Rx] Nicotine 21Mg/24Hr Patch [Habitrol] 1 patch TRANSDERM DAILY #30 patch 09/03/21 [Rx] Pantoprazole [Protonix] 40 mg PO DAILY #30 tab 09/03/21 [Rx] Thiamine [Vitamin B-1] 100 mg PO BID-W/MEALS #0 tab 09/03/21 [Rx] chlordiazePOXIDE HCl [Librium] 5 mg PO TID 3 Days #9 cap 09/03/21 [Rx] hydrALAZINE HCL [Apresoline] 50 mg PO TID #90 tab 09/03/21 [Rx] traZODone HCL [Desyrel] 50 mg PO HS #30 tab 09/03/21 [Rx] Follow up Appointment(s)/Referral(s): Katherine Gan MD [Primary Care Provider] - 1 Week Discharge Disposition: HOME SELF-CARE
== END 2021-09-03 14:00 | disposition home or self-care (01) | DRG 391 ==
LOC: EC 21:28 → 5NMEDONC 23:45
PROVIDERS: ADMIT Internal Medicine; ATTEND Internal Medicine
DX: K29.20 Alcoholic gastritis without bleeding (principal); K85.90 Acute pancreatitis without necrosis or infection, unspecified; F10.239 Alcohol dependence with withdrawal, unspecified; F33.9 Major depressive disorder, recurrent, unspecified; R10.9 Unspecified abdominal pain; E11.9 Type 2 diabetes mellitus without complications; F12.10 Cannabis abuse, uncomplicated; F17.210 Nicotine dependence, cigarettes, uncomplicated; I10 Essential (primary) hypertension; Z79.84 Long term (current) use of oral hypoglycemic drugs; Z79.899 Other long term (current) drug therapy; Z80.8 Family history of malignant neoplasm of other organs or systems; Z83.3 Family history of diabetes mellitus; R74.01 Elevation of levels of liver transaminase levels; F41.1 Generalized anxiety disorder
CPT/HCPCS: 36415; 80053; 80061; 82009; 82150; 83036; 83690; 85025; 85027; 96361; 96374; 96375; 99285

== ENCOUNTER 2024-10-07 08:06 | Observation (INO) | payer OTHER ==
[2024-10-07] MEDS: ACETAMINOPHEN TAB 325 MG TAB PO STA (08:38)
[2024-10-07] MEDS: SODIUM CHLORIDE 0.9% 2,000 ML IV ONE (08:39)
[2024-10-07 08:45] LABS: Basophils % (A) 0 %; Eosinophils # (A) 0.3 k/uL (0-0.7); Eosinophils % (A) 2 %; HCT 42.1 % (39.0-53.0); HGB 14.8 gm/dL (13.0-17.5); Lymphocytes # (A) 2.6 k/uL (1.0-4.8); Lymphocytes % (A) 19 %; MCH 32.1 pg (25.0-35.0); MCHC 35.3 g/dL (31.0-37.0); Mean Platelet Volume 7.4; Monocytes # (A) 0.5 k/uL (0-1.0); Monocytes % (A) 4 %; Neutrophils # (A) 9.9 k/uL (1.3-7.7); Neutrophils % (A) 73 %; Platelet Count 278 k/uL (150-450); RBC 4.62 m/uL (4.30-5.90); RDW 12.2 % (11.5-15.5); WBC 13.5 k/uL (3.8-10.6)
[2024-10-07] MEDS: KETOROLAC 15 MG/ML 1 ML VIAL IVP STA (08:53)
[2024-10-07 08:58] LABS: ALT 21 U/L (4-49); AST 22 U/L (17-59); African American GFR (CKD) >90 (>60 ml/min/1.73 sqM); Albumin 4.9 g/dL (3.5-5.0); Alcohol 109 mg/dL; Alkaline Phosphatase 75 U/L (38-126); Anion Gap 19 mmol/L; Blood Urea Nitrogen 11 mg/dL (9-20); Calcium 10.3 mg/dL (8.4-10.2); Carbon Dioxide 18 mmol/L (22-30); Chloride 102 mmol/L (98-107); Glucose 279 mg/dL (74-99); Magnesium 1.5 mg/dL (1.6-2.3); Non-African American GFR(CKD) >90 (>60 ml/min/1.73 sqM); Potassium 4.8 mmol/L (3.5-5.1); Sodium 139 mmol/L (137-145); Total Bilirubin 0.5 mg/dL (0.2-1.3); Total Protein 7.7 g/dL (6.3-8.2)
--- NOTE | 2024-10-07 09:16 | ED ---
ENT HPI - General Chief complaint: Dental/Oral Stated complaint: oral abcess Time Seen by Provider: 10/07/24 08:09 Source: patient, RN notes reviewed Mode of arrival: ambulatory Limitations: no limitations - History of Present Illness Initial comments: 39-year-old male presents emergency department with complaint of facial pain, facial swelling the right. Patient states started last few days. Patient states he has dental pain and right lower jawline. Patient states that he has had fever chills sweats. Patient does not have days of diabetic blood sugar has been elevated. Patient denies any chest pain shortness of breath - Related Data Home Medications Medication Instructions Recorded Confirmed Atorvastatin [Lipitor] 20 mg PO DAILY 10/07/24 10/07/24 Lisinopril-Hctz 10-12.5 mg 2 tab PO DAILY 10/07/24 10/07/24 [Zestoretic 10-12.5] Omeprazole 20 mg PO DAILY 10/07/24 10/07/24 Pioglitazone [Actos] 15 mg PO DAILY 10/07/24 10/07/24 metFORMIN HCL 1,000 mg PO BID 10/07/24 10/07/24 Allergies Allergy/AdvReac Type Severity Reaction Status Date / Time No Known Allergies Allergy Verified 10/07/24 13:02 Review of Systems ROS Statement: Those systems with pertinent positive or pertinent negative responses have been documented in the HPI. ROS Other: All systems not noted in ROS Statement are negative. Past Medical History Past Medical History: Diabetes Mellitus, Eye Disorder, Hypertension, Liver Disease Additional Past Medical History / Comment(s): ETOH abuse with withdrawal, alcoholic hepatitis, pancreatitis, NIDDM type II, neuropathy bilateral feet/toes, L eye vision blurry at times. History of Any Multi-Drug Resistant Organisms: None Reported Past Surgical History: No Surgical Hx Reported Additional Past Surgical History / Comment(s): Pt states he has never had surgery. Past Anesthesia/Blood Transfusion Reactions: Unable to Obtain Additional Past Anesthesia/Blood Transfusion Reaction / Comment(s): Pt has never had surgery. Past Psychological History: Depression Smoking Status: Current every day smoker Past Alcohol Use History: Occasional Past Drug Use History: None Reported - Past Family History Father Family Medical History: Diabetes Mellitus Mother Family Medical History: Diabetes Mellitus Family Family Medical History: No Reported History General Exam Limitations: no limitations General appearance: alert, in no apparent distress Head exam: Present: atraumatic, normocephalic, normal inspection Eye exam: Present: normal appearance, PERRL, EOMI. Absent: scleral icterus, conjunctival injection, periorbital swelling ENT exam: Present: mucous membranes moist, TM's normal bilaterally, normal external ear exam. Absent: normal oropharynx (Dentition, no drainable abscess, right-sided facial swelling) Neck exam: Present: normal inspection, full ROM. Absent: tenderness, meningismus, lymphadenopathy Respiratory exam: Present: normal lung sounds bilaterally. Absent: respiratory distress, wheezes, rales, rhonchi, stridor Cardiovascular Exam: Present: normal rhythm, tachycardia, normal heart sounds. Absent: systolic murmur, diastolic murmur, rubs, gallop, clicks GI/Abdominal exam: Present: soft, normal bowel sounds. Absent: distended, tenderness, guarding, rebound, rigid Course Vital Signs 10/07/24 10/07/24 10/07/24 08:12 09:54 16:33 Temperature 99.4 F 98.8 F 98.4 F Pulse Rate 133 H 103 H Respiratory 18 18 Rate Blood Pressure 157/99 126/76 O2 Sat by Pulse 96 97 Oximetry 10/07/24 10/07/24 19:27 22:47 Temperature 98.5 F 98.2 F Pulse Rate 89 85 Respiratory 18 18 Rate Blood Pressure 162/96 160/89 O2 Sat by Pulse 95 97 Oximetry Medical Decision Making - Medical Decision Making Was pt. sent in by a medical professional or institution (, PA, SURGICAL GARMENT FITTER, urgent ca re, hospital, or alf...) When possible be specific @ -No Did you speak to anyone other than the patient for history (EMS, parent, family, police, friend...)? What history was obtained from this source @ -No Did you review nursing and triage notes (agree or disagree)? Why? @ -I reviewed and agree with nursing and triage notes Were old charts reviewed (outside hosp., previous admission, EMS record, old EKG, old radiological studies, urgent care reports/EKG's, alf records)? Report findings @ -No old charts were reviewed Differential Diagnosis (chest pain, altered mental status, abdominal pain women, abdominal pain men, vaginal bleeding, weakness, fever, dyspnea, syncope, he adache, dizziness, GI bleed, back pain, seizure, CVA, palpatations, mental health, musculoskeletal)? @ -Dental abscess, dental infection, sepsis, this list is not all inclusive EKG interpreted by me (3pts min.). @ -None X-rays interpreted by me (1pt min.). @ -None done CT interpreted by me (1pt min.). @ -CT soft tissue neck with contrast showing no definite abscess soft tissue infection noted U/S interpreted by me (1pt. min.). @ -None done What testing was considered but not performed or refused? (CT, X-rays, U/S, labs)? Why? @ -None What meds were considered but not given or refused? Why? @ -None Did you discuss the management of the patient with other professionals (professionals i.e. , PA, SURGICAL GARMENT FITTER, lab, RT, psych nurse, administrator social welfare, supervisor electronics processing, teacher, v/stol landing signal officer, rehabilitation case coordinator)? Give summary @ -EM for admission Was smoking cessation discussed for >3mins.? @ -No Was critical care preformed (if so, how long)? @ -No Were there social determinants of health that impacted care today? How? (Homelessness, low income, unemployed, alcoholism, drug addiction, transportation, low edu. Level, literacy, decrease access to med. care, longterm, rehab)? @ -No Was there de-escalation of care discussed even if they declined (Discuss DNR or withdrawal of care, Hospice)? DNR status @ -No What co-morbidities impacted this encounter? (DM, HTN, Smoking, COPD, CAD, Cancer, CVA, ARF, Chemo, Hep., AIDS, mental health diagnosis, sleep apnea, morbid obesity)? @ -Diabetes alcohol abuse Was patient admitted / discharged? Hospital course, mention meds given and route, prescriptions, significant lab abnormalities, going to OR and other pertinent info. @ -[Admitted patient had worsening acidosis more likely to be from infection, CO2 was 16, lactate of 3.4 after repeat labs after 2 L of fluid. Patient will be admitted for IV fluids, antibiotics and oral surgery consult as requested by EM Undiagnosed new problem with uncertain prognosis? @ -No Drug Therapy requiring intensive monitoring for toxicity (Heparin, Nitro, Insulin, Cardizem)? @ -No Were any procedures done? @ -No Diagnosis/symptom? @ -Dental infection, metabolic acidosis Acute, or Chronic, or Acute on Chronic? @ -Acute Uncomplicated (without systemic symptoms) or Complicated (systemic symptoms)? @ -Complicated Side effects of treatment? @ -No Exacerbation, Progression, or Severe Exacerbation? @ -No Poses a threat to life or bodily function? How? (Chest pain, USA, MD, pneumonia, PE, COPD, DKA, ARF, appy, cholecystitis, CVA, Diverticulitis, Homicidal, Suicidal, threat to staff... and all critical care pts) @ -Yes possible bacteremia, sepsis causing endorgan failure - Lab Data Result diagrams: 10/07/24 08:39 10/07/24 10:48 Lab Results 10/07/24 10/07/24 10/07/24 Range/Units 08:39 08:39 08:39 WBC 13.5 H (3.8-10.6) k/uL RBC 4.62 (4.30-5.90) m/uL Hgb 14.8 (13.0-17.5) gm/dL Hct 42.1 (39.0-53.0) % MCV 91.0 (80.0-100.0) fL MCH 32.1 (25.0-35.0) pg MCHC 35.3 (31.0-37.0) g/dL RDW 12.2 (11.5-15.5) % Plt Count 278 (150-450) k/uL MPV 7.4 Neutrophils % 73 % Lymphocytes % 19 % Monocytes % 4 % Eosinophils % 2 % Basophils % 0 % Neutrophils # 9.9 H (1.3-7.7) k/uL Lymphocytes # 2.6 (1.0-4.8) k/uL Monocytes # 0.5 (0-1.0) k/uL Eosinophils # 0.3 (0-0.7) k/uL Basophils # 0.0 (0-0.2) k/uL Sodium 139 (137-145) mmol/L Potassium 4.8 (3.5-5.1) mmol/L Chloride 102 (98-107) mmol/L Carbon Dioxide 18 L (22-30) mmol/L Anion Gap 19 mmol/L BUN 11 (9-20) mg/dL Creatinine 0.76 (0.66-1.25) mg/dL Est GFR (CKD-EPI)AfAm >90 (>60 ml/min/1.73 sqM) Est GFR (CKD-EPI)NonAf >90 (>60 ml/min/1.73 sqM) Glucose 279 H (74-99) mg/dL Lactic Ac Sepsis Rflx Plasma Lactic Acid Nilesh 3.5 H* (0.7-2.0) mmol/L Calcium 10.3 H (8.4-10.2) mg/dL Magnesium 1.5 L (1.6-2.3) mg/dL Total Bilirubin 0.5 (0.2-1.3) mg/dL AST 22 (17-59) U/L ALT 21 (4-49) U/L Alkaline Phosphatase 75 (38-126) U/L Total Protein 7.7 (6.3-8.2) g/dL Albumin 4.9 (3.5-5.0) g/dL Serum Alcohol 109 mg/dL 10/07/24 10/07/24 10/07/24 Range/Units 09:00 10:48 10:48 WBC (3.8-10.6) k/uL RBC (4.30-5.90) m/uL Hgb (13.0-17.5) gm/dL Hct (39.0-53.0) % MCV (80.0-100.0) fL MCH (25.0-35.0) pg MCHC (31.0-37.0) g/dL RDW (11.5-15.5) % Plt Count (150-450) k/uL MPV Neutrophils % % Lymphocytes % % Monocytes % % Eosinophils % % Basophils % % Neutrophils # (1.3-7.7) k/uL Lymphocytes # (1.0-4.8) k/uL Monocytes # (0-1.0) k/uL Eosinophils # (0-0.7) k/uL Basophils # (0-0.2) k/uL Sodium 138 (137-145) mmol/L Potassium 4.3 (3.5-5.1) mmol/L Chloride 105 (98-107) mmol/L Carbon Dioxide 16 L (22-30) mmol/L Anion Gap 17 mmol/L BUN 10 (9-20) mg/dL Creatinine 0.71 (0.66-1.25) mg/dL Est GFR (CKD-EPI)AfAm >90 (>60 ml/min/1.73 sqM) Est GFR (CKD-EPI)NonAf >90 (>60 ml/min/1.73 sqM) Glucose 199 H (74-99) mg/dL Lactic Ac Sepsis Rflx Y Plasma Lactic Acid Nilesh 3.4 H* (0.7-2.0) mmol/L Calcium 9.1 (8.4-10.2) mg/dL Magnesium (1.6-2.3) mg/dL Total Bilirubin (0.2-1.3) mg/dL AST (17-59) U/L ALT (4-49) U/L Alkaline Phosphatase (38-126) U/L Total Protein (6.3-8.2) g/dL Albumin (3.5-5.0) g/dL Serum Alcohol mg/dL 10/07/24 Range/Units 11:09 WBC (3.8-10.6) k/uL RBC (4.30-5.90) m/uL Hgb (13.0-17.5) gm/dL Hct (39.0-53.0) % MCV (80.0-100.0) fL MCH (25.0-35.0) pg MCHC (31.0-37.0) g/dL RDW (11.5-15.5) % Plt Count (150-450) k/uL MPV Neutrophils % % Lymphocytes % % Monocytes % % Eosinophils % % Basophils % % Neutrophils # (1.3-7.7) k/uL Lymphocytes # (1.0-4.8) k/uL Monocytes # (0-1.0) k/uL Eosinophils # (0-0.7) k/uL Basophils # (0-0.2) k/uL Sodium (137-145) mmol/L Potassium (3.5-5.1) mmol/L Chloride (98-107) mmol/L Carbon Dioxide (22-30) mmol/L Anion Gap mmol/L BUN (9-20) mg/dL Creatinine (0.66-1.25) mg/dL Est GFR (CKD-EPI)AfAm (>60 ml/min/1.73 sqM) Est GFR (CKD-EPI)NonAf (>60 ml/min/1.73 sqM) Glucose (74-99) mg/dL Lactic Ac Sepsis Rflx Y Plasma Lactic Acid Nilesh (0.7-2.0) mmol/L Calcium (8.4-10.2) mg/dL Magnesium (1.6-2.3) mg/dL Total Bilirubin (0.2-1.3) mg/dL AST (17-59) U/L ALT (4-49) U/L Alkaline Phosphatase (38-126) U/L Total Protein (6.3-8.2) g/dL Albumin (3.5-5.0) g/dL Serum Alcohol mg/dL Disposition Clinical Impression: Metabolic acidosis, Dental infection Disposition: ADMITTED IP TO THIS HOSP Condition: Fair Time of Disposition: 11:54
--- NOTE | 2024-10-07 09:46 | CT ---
EXAMINATION TYPE: CT soft tissue neck w con DATE OF EXAM: 10/07/2024 9:34 AM COMPARISON: None. CLINICAL INDICATION: Male, 39 years old with history of facial swelling, infection dental; PHH, RT fa cial swelling dental infection TECHNIQUE: Standard enhanced CT of the neck. Axial sections with coronal and sagittal reformats were obtained. Contrast used:100 mL of Isovue 300 with IV Contrast, (None if empty) Oral contrast used: (None if empty) CT DLP: 460.2 mGycm, Automated exposure control for dose reduction was used. FINDINGS: Brain: Visualized portions are grossly unremarkable. Orbits: Unremarkable Sinuses: Grossly unremarkable. Spaces of the neck: Soft tissue swelling along the right mandible, no organizing fluid collection is time. Musculoskeletal: No acute osseous pathology. Periodontal disease worse involving the inferior first m olar with lucency around the roots of this tooth.. Lymph nodes: Multiple nonenlarged lymph nodes are seen along both anterior chains of the neck. Vascular structures: Visualized major arteries are patent without evidence of aneurysm. Thoracic Inlet/airway: Airway is patent. The lung apices are clear. Soft tissues/Thyroid: Thyroid and remainder of the soft tissues are unremarkable. Other: none. IMPRESSION: Periodontal disease around the right lower mandible first molar without organizing fluid collection. [facility], , 10/07/2024 9:43 AM
[2024-10-07 11:04] LABS: African American GFR (CKD) >90 (>60 ml/min/1.73 sqM); Anion Gap 17 mmol/L; Blood Urea Nitrogen 10 mg/dL (9-20); Calcium 9.1 mg/dL (8.4-10.2); Carbon Dioxide 16 mmol/L (22-30); Chloride 105 mmol/L (98-107); Glucose 199 mg/dL (74-99); Non-African American GFR(CKD) >90 (>60 ml/min/1.73 sqM); Sodium 138 mmol/L (137-145)
[2024-10-07 11:08] LABS: Potassium 4.3 mmol/L (3.5-5.1)
[2024-10-07] MEDS ORDERED: ONDANSETRON 4 MG/2 ML VIAL IVP PRN (11:56)
[2024-10-07] MEDS ORDERED: ACETAMINOPHEN TAB 325 MG TAB PO PRN (11:56)
[2024-10-07] MEDS ORDERED: NALOXONE 0.4 MG/ML 1 ML VIAL IV PRN (11:56)
[2024-10-07] MEDS: AMPICILLIN-SULBACTAM 3 GM in SODIUM CHLORIDE 0.9% 100 ML IVPB SCH (12:01)
[2024-10-07] MEDS: SODIUM CHLORIDE 0.9% 1,000 ML IV SCH (12:15)
[2024-10-07] MEDS: HYDROcodone/APAP 5-325MG 1 EACH TAB PO PRN (13:15)
--- NOTE | 2024-10-07 14:37 | P.HPIM ---
History of Present Illness 39-year-old male came in with complaints of swelling in the right lower jaw with concern for abscess/dental infection patient has severe dental pain CT showed periodontal disease around the right lower mandible first molar without any significant organizing collection. Patient does have leukocytosis no fever. Does have lactic acidosis although patient is on metformin at home as well patient is diabetic continues to smoke about half a pack per day denied any shortness of breath or chest pain. REVIEW OF SYSTEMS: All other systems are negative except those mentioned in the HPI PHYSICAL EXAMINATION: GENERAL: The patient is alert and oriented x3, not in any acute distress. Well developed, well nourished. HEENT: Pupils are round and equally reacting to light. EOMI. No scleral icterus. No conjunctival pallor. Normocephalic, atraumatic. No pharyngeal erythema. No thyromegaly. Patient has significant swelling of the right side of the face patient does have infection of the right lower molars CARDIOVASCULAR: S1 and S2 present. No murmurs, rubs, or gallops. PULMONARY: Chest is clear to auscultation, no wheezing or crackles. ABDOMEN: Soft, nontender, nondistended, normoactive bowel sounds. No palpable organomegaly. MUSCULOSKELETAL: No joint swelling or deformity. EXTREMITIES: No cyanosis, clubbing, or pedal edema. NEUROLOGICAL: Gross neurological examination did not reveal any focal deficits. SKIN: No rashes. Assessment and plan -Dental infection/abscess: Patient will be started on IV fluids IV antibiotics Unasyn, maxillofacial surgery will be consulted. -Lactic acidosis can be secondary to infection but most probably secondary to metformin -Leukocytosis due to assessment #1 -Type 2 diabetes mellitus hold off on oral hypoglycemic agents patient with sliding scale insulin -Hypomagnesemia magnesium will be replaced -Hypertension: For now we will hold off on antiemetics medication monitor the blood pressure if needed patient will be started back on his lisinopril patient blood pressure presently is within normal limits DVT prophylaxis: Past Medical History Past Medical History: Diabetes Mellitus, Eye Disorder, Hypertension, Liver Disease Additional Past Medical History / Comment(s): ETOH abuse with withdrawal, alcoholic hepatitis, pancreatitis, NIDDM type II, neuropathy bilateral feet/toes, L eye vision blurry at times. History of Any Multi-Drug Resistant Organisms: None Reported Past Surgical History: No Surgical Hx Reported Additional Past Surgical History / Comment(s): Pt states he has never had surgery. Past Anesthesia/Blood Transfusion Reactions: Unable to Obtain Additional Past Anesthesia/Blood Transfusion Reaction / Comment(s): Pt has never had surgery. Past Psychological History: Depression Smoking Status: Current every day smoker Past Alcohol Use History: Occasional Past Drug Use History: None Reported - Past Family History Father Family Medical History: Diabetes Mellitus Mother Family Medical History: Diabetes Mellitus Family Family Medical History: No Reported History Medications and Allergies Home Medications Medication Instructions Recorded Confirmed Type Atorvastatin [Lipitor] 20 mg PO DAILY 10/07/24 10/07/24 History Lisinopril-Hctz 10-12.5 mg 2 tab PO DAILY 10/07/24 10/07/24 History [Zestoretic 10-12.5] Omeprazole 20 mg PO DAILY 10/07/24 10/07/24 History Pioglitazone [Actos] 15 mg PO DAILY 10/07/24 10/07/24 History metFORMIN HCL 1,000 mg PO BID 10/07/24 10/07/24 History Allergies Allergy/AdvReac Type Severity Reaction Status Date / Time No Known Allergies Allergy Verified 10/07/24 13:02 Physical Exam Vitals: Vital Signs Temp Pulse Resp BP Pulse Ox 10/07/24 09:54 98.8 F 103 H 18 126/76 97 10/07/24 08:12 99.4 F 133 H 18 157/99 96 Intake and Output 10/06/24 10/07/24 10/07/24 22:59 06:59 14:59 Other: Weight 97.522 kg Results CBC & Chem 7: 10/07/24 08:39 10/07/24 10:48 Labs: Abnormal Lab Results - Last 24 Hours (Table) 10/07/24 10/07/24 10/07/24 Range/Units 08:39 08:39 08:39 WBC 13.5 H (3.8-10.6) k/uL Neutrophils # 9.9 H (1.3-7.7) k/uL Carbon Dioxide 18 L (22-30) mmol/L Glucose 279 H (74-99) mg/dL Plasma Lactic Acid Nilesh 3.5 H* (0.7-2.0) mmol/L Calcium 10.3 H (8.4-10.2) mg/dL Magnesium 1.5 L (1.6-2.3) mg/dL 10/07/24 10/07/24 Range/Units 10:48 10:48 WBC (3.8-10.6) k/uL Neutrophils # (1.3-7.7) k/uL Carbon Dioxide 16 L (22-30) mmol/L Glucose 199 H (74-99) mg/dL Plasma Lactic Acid Nilesh 3.4 H* (0.7-2.0) mmol/L Calcium (8.4-10.2) mg/dL Magnesium (1.6-2.3) mg/dL
[2024-10-07 16:28] LABS: Glucose,Whole Blood 280 mg/dL (70-110)
[2024-10-07] MEDS: INSULIN ASPART (NovoLOG) 100 UNIT/ML VIAL SQ SCH (16:32)
[2024-10-07] MEDS: HYDROmorphone 0.5 MG/0.5 ML SYRINGE IVP PRN (19:26)
[2024-10-07] MEDS: FAMOTIDINE 20 MG TAB PO SCH (20:26)
[2024-10-08] MEDS: PANTOPRAZOLE 40 MG TABLET PO SCH (06:48)
[2024-10-08 07:01] LABS: Glucose,Whole Blood 198 mg/dL (70-110)
[2024-10-08] MEDS: ATORVASTATIN 20 MG TAB PO SCH (08:19)
[2024-10-08 09:02] LABS: BUN/Creat Ratio 16.57 Ratio (12.00-20.00); Blood Urea Nitrogen 11.6 mg/dL (9.0-27.0); Calcium 8.6 mg/dL (8.7-10.3); Carbon Dioxide 23.2 mmol/L (21.6-31.8); Chloride 104 mmol/L (96-109); Glucose 180 mg/dL (70-110); Magnesium 1.3 mg/dL (1.5-2.4); Potassium 4.1 mmol/L (3.5-5.5); Sodium 139 mmol/L (135-145)
[2024-10-08] MEDS ORDERED: Magnesium Replacement Protocol 1 EACH MISC MISCELLANE PRN (09:48)
[2024-10-08 10:37] LABS: HCT 33.8 % (39.6-50.0); HGB 11.9 g/dL (13.0-17.0); MCH 31.8 pg (27.0-32.0); MCHC 35.2 g/dL (32.0-37.0); MCV 90.4 FL (80.0-97.0); Mean Platelet Volume 10.6 FL (9.5-12.2); NRBC Per 100 WBC 0 X 10*3/uL (0.00-0.01); Platelet Count 241 X 10*3/uL (140-440); RBC 3.74 X 10*6/uL (4.40-5.60); RDW 12.4 % (11.5-14.5); WBC 9.73 X 10*3/uL (4.50-10.00)
[2024-10-08] MEDS: MAGNESIUM SULFATE-D5W PMX 1 GM in DEXTROSE/WATER 1 100ML.BAG IVPB SCH (11:03)
[2024-10-08 11:06] LABS: Glucose,Whole Blood 265 mg/dL (70-110)
[2024-10-08] MEDS: INSULIN ASPART (NovoLOG) 100 UNIT/ML VIAL SQ SCH (12:16)
[2024-10-08 16:27] LABS: Glucose,Whole Blood 310 mg/dL (70-110)
--- NOTE | 2024-10-08 17:27 | P.PN ---
Subjective Progress Note Date: 10/08/24 39-year-old male came in with complaints of swelling in the right lower jaw with concern for abscess/dental infection patient has severe dental pain CT showed periodontal disease around the right lower mandible first molar without any significant organizing collection. Patient does have leukocytosis no fever. Does have lactic acidosis although patient is on metformin at home as well patient is diabetic continues to smoke about half a pack per day denied any shortness of breath or chest pain. 10/09/2024 Patient is evaluated today in follow up. Right side of the face remains swollen minimal erythema. Pending consult by oral surgeon. Patient does not have glucometer strips at home has not been checking blood glucose. Magnesium 1.3. Review of systems: Constitutional: No reports of fatigue, fever, or chills Cardiovascular: No reports of chest pain or palpitations Respiratory: No reports of shortness of breath or cough GI: No reports of nausea, vomiting, or diarrhea Neurovascular: No focal deficits All medications have been reviewed PHYSICAL EXAMINATION: GENERAL: The patient is alert and oriented x3, not in any acute distress. Well developed, well nourished. HEENT: Pupils are round and equally reacting to light. EOMI. No scleral icterus. No conjunctival pallor. Normocephalic, atraumatic. No pharyngeal erythema. No thyromegaly. Patient has significant swelling of the right side of the face patient does have infection of the right lower molars CARDIOVASCULAR: S1 and S2 present. No murmurs, rubs, or gallops. PULMONARY: Chest is clear to auscultation, no wheezing or crackles. ABDOMEN: Soft, nontender, nondistended, normoactive bowel sounds. No palpable organomegaly. MUSCULOSKELETAL: No joint swelling or deformity. EXTREMITIES: No cyanosis, clubbing, or pedal edema. NEUROLOGICAL: Gross neurological examination did not reveal any focal deficits. SKIN: No rashes. Assessment and plan -Dental infection/abscess: Patient will be started on IV fluids IV antibiotics Unasyn, maxillofacial surgery will be consulted. -Lactic acidosis can be secondary to infection but most probably secondary to metformin -Leukocytosis due to assessment #1 -Type 2 diabetes mellitus hold off on oral hypoglycemic agents patient with sliding scale insulin -Hypomagnesemia magnesium will be replaced -Hypertension: Blood pressure medication has been resumed -Chronic and ongoing nicotine use GI prophylaxis Pepcid Full Code Plan Pending oral surgeon evaluation Continue pain management with IV dilaudid, oral norco Continue IV unasyn Blood cultures pending ID following Monitor Electrolytes and renal function Lisinopril/hctz resumed The impression and plan of care has been dictated by Pily Ambriz, Nurse Practitioner as directed. Dr. Viry MD I have performed a history and physical examination and medical decision making of this patient, discussed the same with the dictator, and agree with the dictators assessment and plan as written, documented as a scribe. Based on total visit time, I have performed more than 50% of this visit. Objective - Vital Signs Vital signs: Vital Signs Temp 97.5 F L 10/08/24 14:00 Pulse 85 10/08/24 14:00 Resp 16 10/08/24 14:00 BP 164/96 10/08/24 14:00 Pulse Ox 95 10/08/24 14:00 FiO2 Intake & Output 10/07/24 10/08/24 10/08/24 18:59 06:59 18:59 Weight 97.522 kg 97.522 kg Other: Voiding Method Toilet # Voids 1 - Labs CBC & Chem 7: 10/08/24 04:09 10/08/24 04:09 Labs: Abnormal Lab Results - Last 24 Hours (Table) 10/07/24 10/08/24 10/08/24 Range/Units 16:26 04:09 04:09 RBC 3.74 L (4.40-5.60) X 10*6/uL Hgb 11.9 L (13.0-17.0) g/dL Hct 33.8 L (39.6-50.0) % Glucose 180 H (70-110) mg/dL POC Glucose (mg/dL) 280 H (70-110) mg/dL Calcium 8.6 L (8.7-10.3) mg/dL Magnesium 1.3 L (1.5-2.4) mg/dL 10/08/24 10/08/24 10/08/24 Range/Units 06:50 11:05 16:26 RBC (4.40-5.60) X 10*6/uL Hgb (13.0-17.0) g/dL Hct (39.6-50.0) % Glucose (70-110) mg/dL POC Glucose (mg/dL) 198 H 265 H 310 H (70-110) mg/dL Calcium (8.7-10.3) mg/dL Magnesium (1.5-2.4) mg/dL Assessment and Plan Time with Patient: Less than 30
[2024-10-08] MEDS: LISINOPRIL-HCTZ 10-12.5 MG 1 EACH TAB PO SCH (18:02)
[2024-10-08] MEDS ORDERED: ACETAMINOPHEN IV (For NPO) 1,000 MG in EMPTY BAG 1 BAG IVPB PRN (18:20)
[2024-10-08 20:36] LABS: Glucose,Whole Blood 355 mg/dL (70-110)
[2024-10-09 06:17] LABS: Glucose,Whole Blood 234 mg/dL (70-110)
[2024-10-09] MEDS: PIOGLITAZONE 15 MG TAB PO SCH (08:01)
[2024-10-09 09:23] LABS: BUN/Creat Ratio 12.57 Ratio (12.00-20.00); Blood Urea Nitrogen 8.8 mg/dL (9.0-27.0); Carbon Dioxide 22.8 mmol/L (21.6-31.8); Chloride 105 mmol/L (96-109); Glucose 209 mg/dL (70-110); Potassium 4.3 mmol/L (3.5-5.5); Sodium 139 mmol/L (135-145)
[2024-10-09 10:07] LABS: Magnesium 1.9 mg/dL (1.5-2.4)
[2024-10-09 11:34] LABS: Glucose,Whole Blood 270 mg/dL (70-110)
[2024-10-09] MEDS: SODIUM CHLORIDE 0.9% 500 ML 500 ML IV SCH (12:17)
--- NOTE | 2024-10-09 14:44 | CT ---
CT [facility]. HISTORY: Right lower jaw pain and tooth pain, dental infection. COMPARISON: None. TECHNIQUE: Multiple axial images are obtained through the mandible. Coronal and sagittal reconstructi ons were generated and reviewed. FINDINGS: There are impacted wisdom teeth bilaterally. There is no bone destruction or abnormal fluid collectio n within the mandible. IMPRESSION: 1. No evidence of osteomyelitis or dental abscess. 2. Impacted wisdom teeth bilaterally. [facility], Workstation: [facility], 10/09/2024 2:41 PM
[2024-10-09 16:52] LABS: Glucose,Whole Blood 236 mg/dL (70-110)
--- NOTE | 2024-10-09 20:04 | CONS ---
CONSULTATION CHIEF COMPLAINT: I have a toothache and it is swollen. HISTORY OF PRESENT ILLNESS: Patient is a 39-year-old male who approximately 1 week ago, noted some pain to the lower right molar and this was then followed by swelling. The swelling in the right mandible and neck continued to increase and he presented to [facility] for evaluation and treatment. The patient was then admitted through the ER and started on IV antibiotics of Unasyn. The patient states that he is much improved following the administration of the IV antibiotic. PAST MEDICAL HISTORY: Significant for type 2 diabetes. MEDICATIONS: Include: 1. Metformin. 2. Lisinopril. 3. Omeprazole. ALLERGIES: He has no known drug allergies. PHYSICAL EXAMINATION: GENERAL: Reveals the patient to be alert and oriented x3. VITAL SIGNS: Stable vital signs. He is afebrile. HEAD AND NECK: Exam reveals mild swelling of the right mandibular and submandibular regions with mild tenderness. The patient states this is improved significantly over the last day or 2. Intraorally, his maximum incisal opening is approximately 35 mm. Tooth #30 is tender to palpation and the vestibule adjacent to the area is tender as well. There is no pharyngeal swelling noted. There is no swelling of the floor of the mouth. ASSESSMENT: Right submandibular space abscess secondary to necrotic tooth #30. PLAN: The patient is going to continue the IV antibiotics and upon discharge he will contact my office for the treatment of tooth #30 and possibly #32. MMODL / IJN: [id number] /
--- NOTE | 2024-10-09 20:29 | P.PN ---
Subjective Progress Note Date: 10/09/24 39-year-old male came in with complaints of swelling in the right lower jaw with concern for abscess/dental infection patient has severe dental pain CT showed periodontal disease around the right lower mandible first molar without any significant organizing collection. Patient does have leukocytosis no fever. Does have lactic acidosis although patient is on metformin at home as well patient is diabetic continues to smoke about half a pack per day denied any shortness of breath or chest pain. 10/08/2024 Patient is evaluated today in follow up. Right side of the face remains swollen minimal erythema. Pending consult by oral surgeon. Patient does not have glucometer strips at home has not been checking blood glucose. Magnesium 1.3. 10/09/2024 Patient evaluated today sitting up on the edge of the bed. Swelling to the right face is significantly improved. Pending consult by oral surgery. Hemoglobin A1C 11.4 and blood glucose has been running in the mid 200s. He continues on IV unasyn. Review of systems: Constitutional: No reports of fatigue, fever, or chills Cardiovascular: No reports of chest pain or palpitations Respiratory: No reports of shortness of breath or cough GI: No reports of nausea, vomiting, or diarrhea Neurovascular: No focal deficits All medications have been reviewed PHYSICAL EXAMINATION: GENERAL: The patient is alert and oriented x3, not in any acute distress. Well developed, well nourished. HEENT: Pupils are round and equally reacting to light. EOMI. No scleral icterus. No conjunctival pallor. Normocephalic, atraumatic. No pharyngeal erythema. No thyromegaly. Patient has significant swelling of the right side of the face patient does have infection of the right lower molars CARDIOVASCULAR: S1 and S2 present. No murmurs, rubs, or gallops. PULMONARY: Chest is clear to auscultation, no wheezing or crackles. ABDOMEN: Soft, nontender, nondistended, normoactive bowel sounds. No palpable organomegaly. MUSCULOSKELETAL: No joint swelling or deformity. EXTREMITIES: No cyanosis, clubbing, or pedal edema. NEUROLOGICAL: Gross neurological examination did not reveal any focal deficits. SKIN: No rashes. Assessment and plan -Dental infection/abscess: Patient will be started on IV fluids IV antibiotics Unasyn, maxillofacial surgery will be consulted. -Lactic acidosis can be secondary to infection but most probably secondary to metformin -Leukocytosis due to assessment #1 -Type 2 diabetes mellitus hold off on oral hypoglycemic agents patient with sliding scale insulin -Hypomagnesemia magnesium will be replaced -Hypertension: Blood pressure medication has been resumed -Chronic and ongoing nicotine use GI prophylaxis Pepcid Full Code Plan Pending oral surgeon evaluation Continue pain management with IV dilaudid, oral norco Continue IV unasyn Blood cultures pending ID following Monitor Electrolytes and renal function Lisinopril/hctz resumed Hemoglobin A1C is elevated at 11.4 and patient will be started on levemir HS for improved glycemic control especially in the presence of infection. He does not have health insurance and social work to provide information about applying for medicaid and dental insurance. Patient will likely need a tooth extraction. Pending panoramic CT and oral surgery consultation. Possible D/C home in the n ext 24 hours pending the consult recommendations. The impression and plan of care has been dictated by Pily Ambriz Nurse Practitioner as directed. Dr. Viry MD I have performed a history and physical examination and medical decision making of this patient, discussed the same with the dictator, and agree with the dictators assessment and plan as written, documented as a scribe. Based on total visit time, I have performed more than 50% of this visit. Objective - Vital Signs Vital signs: Vital Signs Temp 97.1 F L 10/09/24 14:00 Pulse 85 10/09/24 14:00 Resp 18 10/09/24 14:00 BP 143/95 10/09/24 14:00 Pulse Ox 96 10/09/24 14:00 FiO2 Intake & Output 10/09/24 10/09/24 10/10/24 06:59 18:59 06:59 Other: Voiding Method Toilet # Voids 3 2 - Labs CBC & Chem 7: 10/08/24 04:09 10/09/24 04:28 Labs: Abnormal Lab Results - Last 24 Hours (Table) 10/08/24 10/09/24 10/09/24 Range/Units 20:34 04:28 04:28 BUN 8.8 L (9.0-27.0) mg/dL Glucose 209 H (70-110) mg/dL POC Glucose (mg/dL) 355 H (70-110) mg/dL Hemoglobin A1c 11.4 H (<=6.0) % 10/09/24 10/09/24 10/09/24 Range/Units 06:15 11:32 16:51 BUN (9.0-27.0) mg/dL Glucose (70-110) mg/dL POC Glucose (mg/dL) 234 H 270 H 236 H (70-110) mg/dL Hemoglobin A1c (<=6.0) % Microbiology - Last 24 Hours (Table) 10/07/24 12:08 Blood Culture - Preliminary Blood Assessment and Plan Time with Patient: Less than 30
[2024-10-09 20:53] LABS: Glucose,Whole Blood 337 mg/dL (70-110)
[2024-10-09] MEDS: INSULIN DETEMIR (LEVEMIR) 100 UNIT/ML SYR SQ SCH (21:38)
[2024-10-10] MEDS: IBUPROFEN 400 MG TAB PO PRN (00:52)
[2024-10-10 06:24] LABS: Glucose,Whole Blood 192 mg/dL (70-110)
[2024-10-10 11:35] LABS: Glucose,Whole Blood 181 mg/dL (70-110)
[2024-10-10 14:23] VITALS: BMI 29.9
[2024-10-10 15:09] VITALS: BP 117/79; RESP 17; TEMP 99.5
[2024-10-10 16:37] VITALS: PULSE 100
--- NOTE | 2024-10-13 18:56 | P.DS ---
Providers Date of admission: 10/07/24 11:42 Attending physician: Jayro Green Consults: 10/07/24 12:39 Consult Physician Urgent Consulting Provider: Coleman Altamirano Reason/Comments: dental infection Do you want consulting provider notified?: Yes Primary care physician: Loan Trejo MD Hospital Course: Final Diagnosis -right submandibular space abscess secondary to necrotic tooth #30 -Lactic acidosis can be secondary to infection but most probably secondary to metformin -Leukocytosis due to assessment #1 -Type 2 diabetes mellitus hold off on oral hypoglycemic agents patient with slid ing scale insulin -Hypomagnesemia magnesium will be replaced -Hypertension: Blood pressure medication has been resumed -Chronic and ongoing nicotine use Discharge Disposition Patient stable for discharge home. Recommending to continue course of antibiotics with augmentin on discharge. follow up with Dr. Altamirano to schedule tooth extraction of #30 and possibly #32. Counseled on smoking cessatio n. Patient discharged with 15 units of basaglar insulin at HS. Provided with a glucometer. Counseled on smoking cessation. Counseled on the importance of blood glucose control. Hospital Course 39-year-old male came in with complaints of swelling in the right lower jaw with concern for abscess/dental infection patient has severe dental pain CT showed periodontal disease around the right lower mandible first molar without any significant organizing collection. Patient does have leukocytosis no fever. Does have lactic acidosis although patient is on metformin at home as well patient is diabetic continues to smoke about half a pack per day denied any shortness of breath or chest pain. Right side of the face remains swollen minimal erythema. Pending consult by oral surgeon. Patient does not have glucometer strips at home has not been checking blood glucose. He does not currently have medical or dental insurance and states he recently lost his job. He was provided with a glucometer on discharge. His A1C was 11.4 and did recommend starting the patient on long acting insulin on discharge. He is agreeable to this plan. He was continued on IV unasyn while inpatient had clinical improvement and discharged on oral augmentin. Was evaluated by Dr. Dangelo faciomaxillary surgeon. Had a panoramic CT reveals no evidence of osteomyelitis or dental abscess patient does have impacted wisdom teeth bilaterally. Patient diagnosed with right submandibular space abscess secondary to necrotic tooth #30 and recommended to follow up in the dental office to schedule extraction of tooth #30 and possible tooth #32. Blood culture negative. Patient is afebrile. Please see medication reconciliation for a list of current medications. Thank you for allowing us to participate in the care of this patient. The impression and plan of care has been dictated by Pily Ambriz, Nurse Practitioner as directed. Dr. Viry MD I have performed a history and physical examination and medical decision making of this patient, discussed the same with the dictator, and agree with the dictators assessment and plan as written, documented as a scribe. Based on total visit time, I have performed more than 50% of this visit. Patient Condition at Discharge: Fair Plan - Discharge Summary Discharge Rx Participant: No New Discharge Prescriptions: New Insulin Glargine,Hum.rec.anlog [Basaglar Kwikpen U-100] 15 unit SQ HS #1 each Ibuprofen [Motrin] 600 mg PO Q6HR PRN #20 tab PRN Reason: Pain Pen Needle, Diabetic [Pentips] 1 needle INJ HS #30 each Amoxic-Pot Clav 875-125Mg [Augmentin 875-125] 1 tab PO BID 7 Days #14 tab Continue Pioglitazone [Actos] 15 mg PO DAILY Lisinopril-Hctz 10-12.5 mg [Zestoretic 10-12.5] 2 tab PO DAILY Atorvastatin [Lipitor] 20 mg PO DAILY metFORMIN HCL 1,000 mg PO BID Omeprazole 20 mg PO DAILY Discharge Medication List Atorvastatin [Lipitor] 20 mg PO DAILY 10/07/24 [History] Lisinopril-Hctz 10-12.5 mg [Zestoretic 10-12.5] 2 tab PO DAILY 10/07/24 [History] Omeprazole 20 mg PO DAILY 10/07/24 [History] Pioglitazone [Actos] 15 mg PO DAILY 10/07/24 [History] metFORMIN HCL 1,000 mg PO BID 10/07/24 [History] Amoxic-Pot Clav 875-125Mg [Augmentin 875-125] 1 tab PO BID 7 Days #14 tab 10/10/24 [Rx] Ibuprofen [Motrin] 600 mg PO Q6HR PRN #20 tab 10/10/24 [Rx] Insulin Glargine,Hum.rec.anlog [Basaglar Kwikpen U-100] 15 unit SQ HS #1 each 10/10/24 [Rx] Pen Needle, Diabetic [Pentips] 1 needle INJ HS #30 each 10/10/24 [Rx] Follow up Appointment(s)/Referral(s): Loan Trejo MD [Primary Care Provider] - 10/16/24 2:00 pm [facility] [NON-STAFF] - As Needed (Diabetic supplies ) Coleman Altamirano DDS [STAFF PHYSICIAN] - 10/14/24 12:30 pm (in [place] office) Juan Carrillo MD [STAFF PHYSICIAN] - 1 Week (office not answering please call to schedule appointment ) Ambulatory/Diagnostic Orders: Basic Metabolic Panel [LAB.AMB] Time Frame: 3 Days, Location: None Selected Activity/Diet/Wound Care/Special Instructions: Continue to check blood glucose daily and keep log for follow up with Dr. Trejo 15 units Lantus injection at bedtime This will be injected into subcutaneous tissue for example, the back of the arm and 2 in out from around the belly button. Need to rotate the site. Swab with alcohol before injecting. Information provided regarding diabetic diet Hemoglobin A1C 11.4 Discharge Disposition: HOME SELF-CARE
== END 2024-10-10 16:55 | disposition home or self-care (01) ==
LOC: EC 08:06 → 4SSUR 11:42 → INTOOBSV 11:42 → 4SSUR 18:24
PROVIDERS: ADMIT Internal Medicine; ATTEND Internal Medicine
DX: K04.7 Periapical abscess without sinus (principal); K04.1 Necrosis of pulp; E87.20 Acidosis, unspecified; D72.829 Elevated white blood cell count, unspecified; E83.42 Hypomagnesemia; I10 Essential (primary) hypertension; E11.40 Type 2 diabetes mellitus with diabetic neuropathy, unspecified; F32.A Depression, unspecified; F17.200 Nicotine dependence, unspecified, uncomplicated; Z79.84 Long term (current) use of oral hypoglycemic drugs; Z79.899 Other long term (current) drug therapy
CPT/HCPCS: 96376 ×4; 96366 ×4; 96367 ×2; 96365; 96375; 99285; 36415; 80053; 80048 ×3; 83605; 83735 ×3; 85025; 85027; 87040; 80320; 83036; 70486; 70491; G0378 ×4; J0696; J3475; J0295 ×4; J1885; J1171 ×4; Q9967